=== PATIENT | female | born 1955 | race Caucasian/White ===

== ENCOUNTER → 2017-09-30 20:31 | Outpatient (CLI) | payer MEDICARE, MEDICAID, SELFPAY | PROVIDERS: PCP Family Medicine; Visit Provider Family Medicine | DX: R35.0 Frequency of micturition (principal); R39.15 Urgency of urination; N39.46 Mixed incontinence | CPT/HCPCS: 87086 ==

== ENCOUNTER → 2017-11-23 13:38 | Outpatient (CLI) | payer MEDICARE, MEDICAID, SELFPAY ==
--- NOTE | 2017-11-23 13:41 | US_ITS ---
US transvaginal HISTORY: Follow-up ovarian lesion ITS.REASON: LESION OF OVARY ORDERING PHYSICIAN: Jeison Mederos MD PATIENT AGE: 62 years COMPARISON: None FINDINGS: The uterus is 4.5 x 2 x 3.3 cm with a combined endometrial thickness of 5 mm. The left ovary is 3 x 1.5 cm with a few small follicles. The right ovary is 3 x 2.6 cm. No adnexal mass apparent... No cul-de-sac fluid evident. IMPRESSION: No acute finding. No adnexal mass or other acute anomalies.
== END ==
PROVIDERS: Family Provider Family Medicine; PCP Family Medicine; Visit Provider Family Medicine
DX: N83.9 Noninflammatory disorder of ovary, fallopian tube and broad ligament, unspecified (principal)
CPT/HCPCS: 76830

== ENCOUNTER → 2018-08-16 17:18 | Outpatient (CLI) | payer MEDICARE, MEDICAID, SELFPAY ==
--- NOTE | 2018-08-16 17:30 | XR_ITS ---
XR hip RT 2-3V w/pelvis HISTORY: Posttraumatic pain ITS.REASON: CONTUSION OF RIGHT THIGH ORDERING PHYSICIAN: Jeison Mederos MD PATIENT AGE: 62 years COMPARISON: None FINDINGS: No obvious fracture or dislocation. No lytic or blastic change. Mild amount of feces noted in the rectal region. Degenerative changes are present in the lower lumbar spine with facet arthritic change on the left at L4-5. IMPRESSION: No acute finding, no acute fracture of the right hip
== END ==
PROVIDERS: PCP Family Medicine; Visit Provider Family Medicine
DX: S70.11XA Contusion of right thigh, initial encounter (principal)
CPT/HCPCS: 73502

== ENCOUNTER → 2019-08-14 15:01 | Outpatient (CLI) | payer MEDICARE, MEDICAID, SELFPAY ==
--- NOTE | 2019-08-14 15:19 | XR_ITS ---
PROCEDURE: XR DEXA AXIAL SKELETON CLINICAL HISTORY: OSREOPOROSIS COMPARISON: No exams were available for comparison FINDINGS: L1-L4 density is 0.981 grams/centimeters sq with a T-score of -1.7. Mean density of the right hip is 0.695 grams/centimeters sq with a T-score of -2.5 consistent with osteoporosis. IMPRESSION: Osteoporosis. High fracture risk. Treatment advised. Suggest follow-up exam August 2020 Dictated by: Pepe Silva MD 08/14/2019 17:23 Electronically signed by Pepe Silva MD in [place] 08/14/2019 17:23
--- NOTE | 2019-08-14 15:20 | MM_ITS ---
PROCEDURE: MM DIG SCREENING MAMM BI W/CAD CLINICAL INDICATION: SCREENING There is a history of breast cancer patient's mother. COMPARISON: DMSB DIG MAMM-SCREEN SANDRA from 01/03/2015 BONE3 BONE DENSITOMETRY(HIP:LT SPINE from 04/20/2016 DMSB DIG MAMM-SCREEN SANDRA W/CAD from 05/20/2017 TECHNIQUE: Standard CC and MLO images were obtained. R2 CAD reviewed. FINDINGS: Scattered fibroglandular densities are seen throughout both breast on a background primarily fatty breast parenchyma. Findings of bilateral symmetrical. There is a mole marker near the nipple right breast. There is benign-appearing calcification left breast. And no suspicious microcalcifications. There is no suspicious lesion and no suspicious microcalcifications. IMPRESSION: Fibrofatty parenchyma with no suspicious lesions seen BI-RAD Category: 2 Benign Finding(s) FOLLOW-UP: 1YR 1 Year Follow-up (A letter has been sent to the patient regarding results of the study.) Dictated by: Dr. Scooby Willis MD 08/15/2019 14:[address] Scooby Willis MD in [place] 08/15/2019 14:21
== END ==
PROVIDERS: PCP Family Medicine; Visit Provider Nurse Practitioner Family
DX: Z12.31 Encounter for screening mammogram for malignant neoplasm of breast (principal); M81.0 Age-related osteoporosis without current pathological fracture
CPT/HCPCS: 77067; 77080

== ENCOUNTER → 2020-03-04 17:54 | Outpatient (CLI) | payer MEDICARE, MEDICAID, SELFPAY ==
--- NOTE | 2020-03-04 18:04 | XR_ITS ---
PROCEDURE: XR CERVICAL SPINE 5V CLINICAL INDICATION: NECK PAIN COMPARISON: No exams were available for comparison FINDINGS: There is straightening of the cervical lordosis. Degenerative disc disease is present at C5-C6 and C6-C7. There is mild foraminal narrowing at C3-C4 on the right in on the left at C2-C3. No fracture or dislocation. No lytic or blastic change. No evidence of cervical rib IMPRESSION: Cervical spondylosis as described above. Dictated by: Pepe Silva MD 03/04/2020 20:05 Electronically signed by Pepe Silva MD in [place] 03/04/2020 20:05
== END ==
PROVIDERS: PCP Family Medicine; Visit Provider Family Medicine
DX: M54.2 Cervicalgia (principal)
CPT/HCPCS: 72050

== ENCOUNTER 2020-09-02 14:17 | Emergency (ER) | payer MEDICARE, MEDICAID, SELFPAY ==
[2020-09-02 14:20] VITALS: BP 129/80; PULSE 90; RESP 20; TEMP 36.7; O2SAT 97; BMI 28.7
[2020-09-02 14:35] VITALS: BP 129/80; PULSE 90; RESP 20; TEMP 36.7; O2SAT 97
--- NOTE | 2020-09-02 14:35 | HMH.EDUTC ---
[facility] [place] Clinical Impression: Encounter for laboratory testing for COVID-19 virus Disposition: Home, Self-Care Condition on Discharge: Good Instructions: DI for COVID-19 (Suspected or Confirmed ), COVID-19 Viral Test, COVID-19: Testing and Tracing, Preventing the Spread of Coronavirus Discharge Instructions Additional Instructions: *Monitor Temp, Over the counter Motrin or Tylenol as directed/as needed Tylenol every 4 hours and Motrin every 6 hours (as long as your family doctor has told you that you can take it) for fever or pain. and straight to ER if unable to lower temp less than 101.0 after medication given *Warm salt water gargles may help to soothe the throat *Throat Lozenges *Warm fluids like tea with honey may help to soothe the throat *Sleep elevated *Humidifier/Vaporizer Follow up IMMEDIATELY for new or worsening symptoms or no Noticeable improvement over the next 48-72 hours. 911 for difficulty breathing or swallowing You were tested for today for COVID19 your test result should be back in the next 24-48 hours, you may call to the [facility] to see if your test results are back in the next 48 hours [phone] [facility] hours are 9am-9pm You was given a handout with instructions for Self Quarantine and Self isolation for while you wait on test results and what to do if they are positive If you are positive the Health Dept will be contacting you also Referrals: Jeison Mederos MD [Primary Care Provider] - As needed Time of Disposition: 14:36 Medical Decision Making - Morgan Inquiry Pt receiving controlled substance: No Morgan was queried for this patient: No Vital Signs: 09/02/20 14:20 09/02/20 14:35 Temperature 98.0 F 98.0 F Temperature Source Oral Pulse Rate 90 Pulse Rate [Right Brachial] 90 Respiratory Rate 20 20 Blood Pressure 129/80 Blood Pressure [Right Arm] 129/80 Blood Pressure Mean [Right Arm] 96 Blood Pressure Source [Right Arm] Automatic Cuff Blood Pressure Position [Right Arm] Sitting 02 Sat by Pulse Oximetry 97 Oxygen Delivery Method Room Air Orders (Tests/Meds): ORDERS Category Date Time Status Covid-19 Nasal PCR Sendout [facility] Stat Lab 09/02/20 14:25 Received [facility] [place] - General Stated complaint: wants covid test Time Seen by Provider: 09/02/20 14:35 Mode of Arrival: Ambulatory Source of Information: Patient Limitations: No Limitations Description of Symptoms (Recalled from Triage Doc. by RN): PATIENT REQUESTING COVID TEST D/T EXPOSURE; C/O BODY ACHES, HEADACHE, AND SORE THROAT HEENT Symptoms (Recalled from RN notes): No Resp Symptoms (Recalled from RN notes): No Skin Symptoms (Recalled from RN notes): No MS Symptoms (Recalled from RN notes): No Functional Status (Recalled from RN notes): WNL - History of Present Illness Provider Complaint: Patient requesting to be tested for COVID States that she has been having headache, body aches and scratchy throat but she recently got a new bed and thinks that may be causing her headache and body aches. - Related Data Home Medications Medication Instructions Recorded Confirmed cyclobenzaprine 5 mg tablet 5 mg PO DAILY 10 Days #30 tab 05/20/18 12/06/19 divalproex 125 mg tablet,delayed 250 mg PO BID 05/20/18 12/06/19 release donepezil 10 mg tablet 10 mg PO QHS 05/20/18 12/06/19 fexofenadine 60 mg tablet 60 mg PO BID 05/20/18 12/06/19 fluticasone propionate 50 1 spray INTRANASAL DAILY 05/20/18 12/06/19 mcg/actuation nasal spray,suspension tramadol 50 mg tablet 50 mg PO DAILY 30 Days #90 tab 05/20/18 12/06/19 triamterene 50 1 cap PO DAILY 05/20/18 12/06/19 mg-hydrochlorothiazide 25 mg capsule venlafaxine 37.5 mg 37.5 mg PO QHS 05/20/18 12/06/19 capsule,extended release 24 hr Previous Rx's Medication Instructions Recorded Azithromycin [Z-Liang 250mg Tab*] 250 mg PO UD DOSE PK #6 tab 12/06/19 Allergies Allergy/AdvReac Type Severity Reaction Status Date / Time Penicillins [PENICILLINS] Al
[2020-09-03 12:38] LABS: Covid-19 Nasal PCR Sendout P&C NEGATIVE
== END 2020-09-02 14:37 | disposition home or self-care (01) ==
PROVIDERS: Emergency Provider Nurse Practitioner; PCP Family Medicine
DX: Z20.828 Contact with and (suspected) exposure to other viral communicable diseases (principal); J02.9 Acute pharyngitis, unspecified; Z86.73 Personal history of transient ischemic attack (TIA), and cerebral infarction without residual deficits; Z88.0 Allergy status to penicillin
CPT/HCPCS: G0463; 99201; U0004

== ENCOUNTER → 2020-10-07 15:29 | Outpatient (CLI) | payer MEDICARE, MEDICAID, SELFPAY ==
--- NOTE | 2020-10-07 15:30 | MM_ITS ---
PROCEDURE: MM DIG SCREENING MAMM BI W/CAD Referring Doctor: Jeison Mederos Patient Age:64Y CLINICAL INDICATION: SCREENING 64-year-old. No hormones, no new complaints Family history: Mother and maternal aunt with breast cancer COMPARISON: MG DMSB DIGITAL MAMM-SCREEN BILATERAL from 12/15/2012 MG DMSB DIG MAMM-SCREEN SANDRA from 12/12/2013 MG DMSB DIG MAMM-SCREEN SANDRA from 01/03/2015 CR,MG BONE3 BONE DENSITOMETRY(HIP:LT SPINE from 04/20/2016 MG DMSB DIG MAMM-SCREEN SANDRA W/CAD from 05/20/2017 MG MM DIG SCREENING MAMM BI W/CAD from 08/14/2019 TECHNIQUE: Standard CC and MLO images were obtained. R2 CAD reviewed. Bilateral digital breast tomosynthesis included. FINDINGS: Minimal scattered fibroglandular elements. Overall lower density breast with moderate diffuse fatty replacement. Right breast-stable with no new areas of concern but follow-up 1 year Left breast- Area of slight increased density towards the lateral left breast seen on the cc standard views and to less degree tomosynthesis. However it is less evident and linear appearing on MLO view most likely reflecting a longstanding feature merely accentuated by overlapping shadows on today study. However would suggest spot cc and rolled spot CC views here along with spot MLO view to further evaluate. Ultrasound survey left breast with attention upper-outer quadrant also suggested IMPRESSION: Left breast-area increased density at the lateral left breast on CC views suspect most likely is overlapping shadows of however I would suggest spot views and ultrasound left breast to further evaluate to be cautious, (particularly in view of positive family history) Right breast. Stable no new areas of concern BI-RAD Category: 0 Need Additional Imaging Evaluation FOLLOW-UP: IMM Immediate Follow-up Recommended (A letter has been sent to the patient regarding results of the study.) Dictated by: Manuel Mosher MD 10/14/2020 08:46 Manuel Mosher MD in [place] 10/14/2020 08:46
== END ==
PROVIDERS: PCP Family Medicine; Visit Provider Family Medicine
DX: Z12.31 Encounter for screening mammogram for malignant neoplasm of breast (principal)
CPT/HCPCS: 77063; 77067

== ENCOUNTER → 2020-11-05 13:27 | Outpatient (CLI) | payer MEDICARE, MEDICAID, SELFPAY ==
--- NOTE | 2020-11-05 13:30 | MM_ITS ---
PROCEDURE: MM DIG MAMM DX UNILAT LT CAD Digital Breast Tomosynthesis Included CLINICAL INDICATION: ABN MAMM COMPARISON: MG DMSB DIG MAMM-SCREEN SANDRA W/CAD from 05/20/2017 MG MM DIG SCREENING MAMM BI W/CAD from 08/14/2019 MG MM DIG SCREENING MAMM BI W/CAD from 10/07/2020 US US BREAST LT COMPLETE from 11/05/2020 TECHNIQUE: Spot compression CC views and rolled CC views were obtained along with spot compression compression MLO view FINDINGS: The possible asymmetric lesion seen on previous mammogram appears to press out on the additional views with no suspicious findings seen. Ultrasound performed the same date showed no abnormality. IMPRESSION: Negative problem solving views and ultrasound exam BI-RAD Category: 1 Negative FOLLOW-UP: 1YR 1 Year Follow-up (A letter has been sent to the patient regarding results of the study.) Dictated by: Dr. Scooby Willis MD 11/12/2020 16:54 Dr. Scooby Willis MD in [place] 11/12/2020 16:54
--- NOTE | 2020-11-05 13:31 | US_ITS ---
PROCEDURE: US BREAST LT COMPLETE CLINICAL INDICATION: ABN MAMM COMPARISON: No exams were available for comparison FINDINGS: Ultrasound survey of the breast shows no abnormal cystic or solid lesion and there are no findings to suggest architectural distortion. There are couple normal appearing nodes in the axilla. IMPRESSION: Negative ultrasound left breast Dictated by: Dr. Scooby Willis MD 11/12/2020 16:55 Dr. Scooby Willis MD in [place] 11/12/2020 16:55
== END ==
PROVIDERS: PCP Family Medicine; Visit Provider Nurse Practitioner Family
DX: R92.8 Other abnormal and inconclusive findings on diagnostic imaging of breast (principal)
CPT/HCPCS: 76641; 77061; 77065; G0279

== ENCOUNTER → 2020-12-11 09:20 | Outpatient (CLI) | payer MEDICARE, MEDICAID, SELFPAY ==
--- NOTE | 2020-12-11 09:22 | XR_ITS ---
PROCEDURE: XR DEXA AXIAL SKELETON CLINICAL HISTORY: AGE-RELATED OSTEOPOROSIS W/O CURRENT PATHOLOGICAL FRACTURE COMPARISON: CR,DX BONE3 BONE DENSITOMETRY(HIP:LT SPINE from 05/24/2017 FINDINGS: The right hip BMD is 0.759 grams/square centimeter with a T-score of -1.5. The left hip BMD is 0.649 grams/cm2 with a T-score of -2.4. The lumbar spine BMD is 0.917 grams/centimeters square with a T-score of -1.2. IMPRESSION: This patient is considered osteopenic according to the World Health Organization criteria. Bone density is between 10 and 25 percent below young normal. Fracture risk is moderate. Treatment is advised. Based on these results a follow-up exam is recommended in 2 year. Dictated by: Lianne Lincoln 12/11/2020 11:53 Lianne Lincoln in [place] 12/11/2020 11:53
== END ==
PROVIDERS: PCP Family Medicine; Visit Provider Family Medicine
DX: M81.0 Age-related osteoporosis without current pathological fracture (principal)
CPT/HCPCS: 77080

== ENCOUNTER 2021-05-27 16:10 | Emergency (ER) | payer MEDICARE, MEDICAID, SELFPAY ==
[2021-05-27 16:50] VITALS: BP 145/70; PULSE 103; RESP 18; TEMP 36.7; O2SAT 100; BMI 29.0
--- NOTE | 2021-05-27 17:33 | HMH.EDUTC ---
[facility] [place] Disposition Clinical Impression: Diarrhea Qualifiers: Diarrhea type: unspecified type Qualified Code(s): R19.7 - Diarrhea, unspecified Disposition: Home, Self-Care Condition on Discharge: Good Instructions: Diarrhea Additional Instructions: Follow up with your primary care doctor tomorrow as planned. GO TO THE ER FOR ANY WORSENING SYMPTOMS OR CONCERNS Referrals: Jeison Mederos MD [Primary Care Provider] - Time of Disposition: 18:23 Medical Decision Making - Medical Records Medical records reviewed: No: I reviewed the patient's medical records. - Moragn Inquiry Pt receiving controlled substance: No Vital Signs: 05/27/21 16:50 05/27/21 18:25 Temperature 98.1 F 98.1 F Temperature Source Oral Pulse Rate 103 H Pulse Rate [Right Brachial] 103 H Respiratory Rate 18 18 Blood Pressure 145/70 H Blood Pressure [Right Arm] 145/70 H Blood Pressure Mean [Right Arm] 95 Blood Pressure Source [Right Arm] Automatic Cuff Blood Pressure Position [Right Arm] Sitting 02 Sat by Pulse Oximetry 100 Oxygen Delivery Method Room Air - Lab Data Lab Results 05/27/21 18:00: WBC 12.8 H, RBC 3.80 L, Hgb 11.1 L, Hct 33.9 L, MCV 89.2, MCH 29.2, MCHC 32.8, RDW 13.2, Plt Count 189, MPV 9.2, Neut % (Auto) 73.7, Lymph % (Auto) 20.6, [place] % (Auto) 2.9, Eos % (Auto) 2.1, Baso % (Auto) 0.8, Neut # (Auto) 9.4 H, Lymph # (Auto) 2.6, [place] # (Auto) 0.4, Eos # (Auto) 0.3, Baso # (Auto) 0.1 Result diagrams: 05/27/21 18:00 Orders (Tests/Meds): ORDERS Category Date Time Status Covid-19 Nasal PCR ([facility]) Routine Lab 05/27/21 16:55 Received Medical Decision Narrative: we were in the process of drawing blood and starting an iv to replace any fluids that she has lost. But she ended up refusing the IV and wanting to leave before her results are back. She is going to f/u with her pcp in the morning to go over the lab results and further treatment. [facility] [place] HPI - General Stated complaint: covid test,with V&D stools black Time Seen by Provider: 05/27/21 17:38 Mode of Arrival: Ambulatory Source of Information: Patient Limitations: No Limitations Description of Symptoms (Recalled from Triage Doc. by RN): PATIENT C/O VOMITING AND DIARRHEA THAT STARTED THIS MORNING, STATES IT IS BLACK IN COLOR. HAS APPOINTMENT WITH PCP TOMORROW AND ORDERS FOR OUTPATIENT LABS HEENT Symptoms (Recalled from RN notes): No Resp Symptoms (Recalled from RN notes): No Skin Symptoms (Recalled from RN notes): No MS Symptoms (Recalled from RN notes): No Functional Status (Recalled from RN notes): WNL - History of Present Illness Provider Complaint: She states that since yesterday she has had dark, almost black diarrhea and she has vomited dark vomitus also. She states that she doesn't feel good, but she denies any abdominal pain at this time. - Related Data Home Medications Medication Instructions Recorded Confirmed cyclobenzaprine 5 mg tablet 5 mg PO DAILY 10 Days #30 tab 05/20/18 12/06/19 divalproex 125 mg tablet,delayed 250 mg PO BID 05/20/18 12/06/19 release donepezil 10 mg tablet 10 mg PO QHS 05/20/18 12/06/19 fexofenadine 60 mg tablet 60 mg PO BID 05/20/18 12/06/19 fluticasone propionate 50 1 spray INTRANASAL DAILY 05/20/18 12/06/19 mcg/actuation nasal spray,suspension tramadol 50 mg tablet 50 mg PO DAILY 30 Days #90 tab 05/20/18 12/06/19 triamterene 50 1 cap PO DAILY 05/20/18 12/06/19 mg-hydrochlorothiazide 25 mg capsule venlafaxine 37.5 mg 37.5 mg PO QHS 05/20/18 12/06/19 capsule,extended release 24 hr Previous Rx's Medication Instructions Recorded Azithromycin [Z-Liang 250mg Tab*] 250 mg PO UD DOSE PK #6 tab 12/06/19 Allergies Allergy/AdvReac Type Severity Reaction Status Date / Time Penicillins [PENICILLINS] Allergy Unknown Verified 12/06/19 17:10 - Worker's Comp Is this a Worker's Comp case?: No [facility] History - Hepatitis A Screen Drug use history?: No High risk sexual behaviors?
[2021-05-27 18:24] LABS: Basophils # 0.1 K/mm3 (0-0.2); Basophils % 0.8 % (0.1-2.0); Eosinophils # 0.3 K/mm3 (0.0-0.4); Eosinophils % 2.1 % (0.1-12.0); Hematocrit 33.9 % (37.0-47.0); Hemoglobin 11.1 g/dL (12.2-16.2); Lymphocytes # 2.6 K/mm3 (0.7-4.5); Lymphocytes % 20.6 % (10-50); Mean Corpuscular HGB Conc 32.8 g/dL (31.8-35.4); Mean Corpuscular Hemoglobin 29.2 pg (27.0-31.2); Mean Corpuscular Volume 89.2 fl (81-99); Mean Platelet Volume 9.2 fl (7.4-10.4); Monocytes # 0.4 K/mm3 (0.1-1.0); Monocytes % 2.9 % (1.7-9.3); Neutrophils # 9.4 K/mm3 (1.8-7.8); Neutrophils % 73.7 % (37.0-80.0); Platelet Count 189 K/mm3 (142-424); Red Cell Distribution Width 13.2 % (11.5-17.5); White Blood Count 12.8 K/mm3 (4.8-10.8)
[2021-05-27 18:25] VITALS: BP 145/70; PULSE 103; RESP 18; TEMP 36.7; O2SAT 100
== END 2021-05-27 18:30 | disposition home or self-care (01) ==
PROVIDERS: Emergency Provider Nurse Practitioner Family; PCP Family Medicine
DX: R11.10 Vomiting, unspecified (principal); R19.7 Diarrhea, unspecified; G40.909 Epilepsy, unspecified, not intractable, without status epilepticus; Z86.73 Personal history of transient ischemic attack (TIA), and cerebral infarction without residual deficits; Z88.0 Allergy status to penicillin
CPT/HCPCS: G0463; 85025; 99203; C9803; U0003; U0005

== ENCOUNTER → 2021-06-10 16:31 | Outpatient (CLI) | payer MEDICARE, MEDICAID, SELFPAY | PROVIDERS: Visit Provider Surgery | DX: Z01.812 Encounter for preprocedural laboratory examination (principal); Z20.822 Contact with and (suspected) exposure to COVID-19; Z13.810 Encounter for screening for upper gastrointestinal disorder | CPT/HCPCS: C9803; U0003; U0005 ==

== ENCOUNTER 2021-06-11 06:29 | Day surgery (SDC) | payer MEDICARE, MEDICAID, SELFPAY ==
[2021-06-10 11:46] VITALS: BMI 27.4
[2021-06-11 06:43] VITALS: BP 148/69; PULSE 92; RESP 18; TEMP 36.9; O2SAT 98
--- NOTE | 2021-06-11 06:58 | HMH.ANESCL ---
[facility] Anesthesia Checklist - Patient Identification Patient Identification: Arm Band, Verbal (Name & ) - Structural Data Admitted From: Home Planned Operative Procedure/s: egd Consent for Planned Operative Procedure(s) Verified: Yes Verified Documents: History and Physical - NPO Status Verified Time NPO: 00:00 - Additional verifications Patient : No Anesthesia Reactions: No Hx Blood Transfusions: No Blood Transfusion Reaction: No Cephalosporin Allergy: No Previous Colonoscopy: Yes - Cardiovascular Assessment Heart Sounds: S1 & S2 Pulse Strength: Baseline Pulse Rhythm: Regular Peripheral Edema: No - Airway Assessment C-Spine Mobility Assessed: Yes TMJ Mobility Assessed: Yes Dentition: Good Dentition - Neurological Assessment Level of Consciousness: Awake, Alert, Appropriate Hx Seizures: No Numbness or tingling in extremities: No - Anesthesia Plan Anesthesia Risk discussed: Yes Anesthesia Plan: Verified ASA Class: III Anesthesia Type: MAC [facility] History I have reviewed the patient's past medical history: Yes Medical History: Reports:: Cerebrovascular Accident, Dementia, Hyperlipidemia, Hypertension Denies:: Cancer, Diabetes Mellitus Type 1, Diabetes Mellitus Type 2, Internal Pacemaker, MRSA, Seizures *Have you ever received a pneumonia vaccine?: No *Have you received a flu vaccine this season?: No Anesthesia experience/problems:: none Other Surgeries: Yes: No Previous Surgery. No: Pacemaker Amputation: No Fractures: No - *Social History Last grade of school completed: High school graduate Smoking Status: Never smoker Alcohol Intake: never Substance Use Type: denies use *Occupational Status:: retired Housing: house *Travel in the last 8 weeks: None Family Hx:: Cancer
[2021-06-11 07:16] VITALS: O2SAT 98
--- NOTE | 2021-06-11 07:36 | HMH.SCOPE ---
- Procedure: Date: 06/11/21 Patient Date of :: 1955 Procedure Performed:: Esophagogastroduodenoscopy with biopsy Indications:: Patient is a 65-year-old female who is referred by Dr. Fahad Mederos for upper endoscopy. She states that on 05/26/2021 she developed symptoms of hematemesis characterized as vomiting of black liquid. She also had findings of melena with passage of black stool. She was able to be managed without intervention. Some of her medications have been altered subsequently. Naprosyn has been discontinued. She has been started on iron. Performing Provider:: Sameer Raza MD Referring Provider:: Fahad Mederos MD Sedation:: MAC sedation Procedure:: Patient was taken to endoscopy procedure room. She was positioned in lateral decubitus position. Adequate intravenous sedation was achieved with anesthesia titration of propofol. Olympus endoscope was inserted via the oropharynx. Esophagus was cannulated the endoscope was advanced. Gastroesophageal junction was encountered at approximately 40 cm from the incisors. Stomach was cannulated and insufflated. Retroflexion revealed no evidence of any definite sliding hernia. However, upon retroflexion the pylorus and gastroesophageal junction were able to be visualized simultaneously. There was some mild nonerosive patchy gastritis. Advancement through the pylorus was difficult due to the gastric anatomy. Ultimately endoscope was ably advanced through the pylorus and duodenum appeared unremarkable. Endoscope was withdrawn into the gastric lumen. Gastric antral mucosal biopsy was obtained for CLOtest for H. pylori. Couple of biopsies were obtained within the gastric lumen to assess for gastritis. Stomach was desufflated and the endoscope was withdrawn. Findings:: Mild nonerosive gastritis Gastroesophageal junction at 40 cm from the incisors Findings possibly consistent with paraesophageal hernia Recommendations:: Follow-up on histopathology. I will obtain an upper GI series as she has findings endoscopically possibly suggestive of a paraesophageal hernia with potential intermittent gastric volvulus Complications:: None Estimated blood obtained (mL): 2
[2021-06-11 07:38] VITALS: BP 111/65; PULSE 77; RESP 16; TEMP 36.5; O2SAT 91
[2021-06-11 07:53] VITALS: BP 120/61; PULSE 76; RESP 16; TEMP 36.5; O2SAT 96
[2021-06-11 08:18] VITALS: BP 125/62; PULSE 77; RESP 16; TEMP 36.6; O2SAT 96
== END 2021-06-11 08:25 | disposition home or self-care (01) ==
LOC: OUTP 06:32
PROVIDERS: PCP Family Medicine; Visit Provider Surgery
PROC: 0DJ08ZZ Inspection of Upper Intestinal Tract, Via Natural or Artificial Opening Endoscopic (ICD-10-PCS; CPT 43235; principal; 2021-06-11 07:30)
DX: K29.70 Gastritis, unspecified, without bleeding (principal); K44.9 Diaphragmatic hernia without obstruction or gangrene; E78.5 Hyperlipidemia, unspecified; I10 Essential (primary) hypertension; F03.90 Unspecified dementia, unspecified severity, without behavioral disturbance, psychotic disturbance, mood disturbance, and anxiety; Z86.73 Personal history of transient ischemic attack (TIA), and cerebral infarction without residual deficits; Z80.9 Family history of malignant neoplasm, unspecified; Z88.0 Allergy status to penicillin; Z91.040 Latex allergy status; Z79.899 Other long term (current) drug therapy
CPT/HCPCS: 43239; 87339; 88305; J2405

== ENCOUNTER → 2021-06-13 10:51 | Outpatient (CLI) | payer MEDICARE, MEDICAID, SELFPAY ==
--- NOTE | 2021-06-13 10:55 | FL_ITS ---
PROCEDURE: FL UPPER GI SERIES W/O AIR CLINICAL INDICATION: dysphagia COMPARISON: No exams were available for comparison TECHNIQUE: FLUOROSCOPY TIME : 2 minutes and 30 seconds FINDINGS: There is elevation of the left hemidiaphragm.. The gastric body and fundus is located in this region. No ulcer, mass, or mucosal abnormalities are apparent. The duodenal bulb has an unremarkable appearance. The esophagus is unremarkable. No hernia or ulcer apparent. IMPRESSION: No acute finding. No ulcer or mass. Left hemidiaphragm is elevated with some rotation of the stomach containing the gastric fundus body in part of the antrum. Dictated by: Pepe Silva MD 06/16/2021 11:50 Pepe Silva MD in [place] 06/16/2021 11:50
== END ==
PROVIDERS: PCP Family Medicine; Visit Provider Surgery
DX: R13.10 Dysphagia, unspecified (principal)
CPT/HCPCS: 74240

== ENCOUNTER 2021-07-07 13:29 | Outpatient (CLI) | payer MEDICARE, MEDICAID, SELFPAY ==
[2021-07-07 13:49] VITALS: BP 125/63; PULSE 85; RESP 18; TEMP 36.5; O2SAT 98
[2021-07-07 14:15] VITALS: BP 125/69; PULSE 82; RESP 16; TEMP 36.5; O2SAT 98
== END 2021-07-07 14:15 | disposition home or self-care (01) ==
LOC: INF 13:30
PROVIDERS: PCP Family Medicine; Visit Provider Nurse Practitioner Family
DX: M85.89 Other specified disorders of bone density and structure, multiple sites (principal)
CPT/HCPCS: 96372; J0897

== ENCOUNTER → 2021-09-01 11:52 | Outpatient (CLI) | payer MEDICARE, MEDICAID, SELFPAY | PROVIDERS: Visit Provider Surgery | DX: Z01.812 Encounter for preprocedural laboratory examination (principal); Z11.52 Encounter for screening for COVID-19; Z12.11 Encounter for screening for malignant neoplasm of colon | CPT/HCPCS: C9803; U0003; U0005 ==

== ENCOUNTER 2021-09-03 09:16 | Day surgery (SDC) | payer MEDICARE, MEDICAID, SELFPAY ==
[2021-09-03 09:39] VITALS: BP 127/69; PULSE 85; RESP 18; TEMP 36.4; O2SAT 98; BMI 27.4
[2021-09-03 10:29] VITALS: O2SAT 98
--- NOTE | 2021-09-03 11:13 | HMH.SCOPE ---
- Procedure: Date: 09/03/21 Patient Date of :: 1955 Procedure Performed:: Total colonoscopy Indications:: Patient presents for colonoscopy. This was done due to the indications of black melena and possible hematemesis. She had an episode that lasted 1 evening. She is on Carafate and omeprazole. Upper endoscopy performed on 06/11/2021 revealed moderate gastritis and biopsy proven reactive gastropathy. She did seem to have rather unusual orientation of the stomach endoscopically and I therefore had her undergo upper GI series to evaluate for possible paraesophageal hernia and intermittent gastric volvulus. Upper GI series revealed Left hemidiaphragm is elevated with some rotation of the stomach containing the gastric fundus body in part of the antrum. There was no evidence of any paraesophageal hernia or volvulus. Patient has never had prior similar history and has been doing well subsequently. She does ask about possible colonoscopy. She states that she was being set up for Cologuard testing through her primary care physician's office but has not received the packet. Plan was made to proceed with colonoscopy. Of note, the patient is on ferrous sulfate. Performing Provider:: Sameer Raza MD Referring Provider:: Fahad Mederos MD Sedation:: MAC sedation Procedure:: Consent was obtained and patient was taken to endoscopy procedure room. She was positioned in lateral decubitus position. Adequate intravenous sedation was achieved with anesthesia titration of propofol. Variable stiffness Olympus colonoscope was inserted via the anus. It was advanced to the cecum with some minor difficulty due to atonic floppy redundant colon. Colonic preparation was poor as there was dark black particulate stool throughout the colon. The ileocecal valve and appendiceal orifice were identified. Thorough irrigation and suctioning was performed as much this could be done. The colonoscope was slowly withdrawn through the colon with careful surveillance. However, visualization was suboptimal due to the black particulate liquid stool. Due to the nature of the stool some of this was suctioned into a trap and sent for Hemoccult. Colonoscope was withdrawn to the rectum and retroflexion revealed no evidence of any pathologic internal hemorrhoids. Colonoscope was withdrawn. Findings:: Poor preparation with dark black liquid particulate stool throughout the colon. Specimen sent for Hemoccult (patient is on ferrous sulfate). Recommendations:: Would advocate repeat colonoscopy within 1 year with more aggressive bowel preparation and holding iron sulfate Complications:: None immediately apparent Estimated blood obtained (mL): 0
[2021-09-03 11:14] VITALS: BP 112/71; PULSE 78; RESP 16; TEMP 36.5; O2SAT 98
[2021-09-03 11:39] VITALS: BP 119/74; PULSE 71; RESP 18; TEMP 36.5; O2SAT 99
[2021-09-03 11:40] LABS: Occult Blood,Stool Negative (Negative)
--- NOTE | 2021-09-03 11:52 | HMH.ANESCL ---
[facility] Anesthesia Checklist - Patient Identification Patient Identification: Arm Band, Verbal (Name & ) - Structural Data Admitted From: Home Planned Operative Procedure/s: Colonoscopy Consent for Planned Operative Procedure(s) Verified: Yes Verified Documents: Surgical Consent - NPO Status Verified Time NPO: 00:00 - Additional verifications Anesthesia Reactions: No Hx Blood Transfusions: No Blood Transfusion Reaction: No - Cardiovascular Assessment Heart Sounds: S1 & S2 - Airway Assessment C-Spine Mobility Assessed: Yes TMJ Mobility Assessed: Yes Dentition: Good Dentition - Neurological Assessment Level of Consciousness: Awake, Alert, Appropriate - Anesthesia Plan Anesthesia Risk discussed: Yes ASA Class: III Anesthesia Type: General [facility] History I have reviewed the patient's past medical history: Yes Medical History: Reports:: Aneurysm, Cerebrovascular Accident, Dementia, Hyperlipidemia, Hypertension Denies:: Cancer, Diabetes Mellitus Type 1, Diabetes Mellitus Type 2, Internal Pacemaker, MRSA, Seizures *Have you ever received a pneumonia vaccine?: No *Have you received a flu vaccine this season?: No Other Medical History: Denies: Blood Transfusion Reaction Anesthesia experience/problems:: none Other Surgeries: Yes: No Previous Surgery, Colonoscopy, EGD, Other (hemorrhoidectomy). No: Pacemaker Amputation: No Fractures: No - *Social History Last grade of school completed: Advanced degree Smoking Status: Former smoker Alcohol Intake: never Substance Use Type: denies use *Occupational Status:: retired Housing: house Household Members: none *Travel in the last 8 weeks: None Family Hx:: Cancer
[2021-09-03 12:05] VITALS: BP 116/74; PULSE 75; RESP 18; TEMP 36.6; O2SAT 97
== END 2021-09-03 12:07 | disposition home or self-care (01) ==
LOC: OUTP 09:17
PROVIDERS: PCP Family Medicine; Visit Provider Surgery
PROC: 0DJD8ZZ Inspection of Lower Intestinal Tract, Via Natural or Artificial Opening Endoscopic (ICD-10-PCS; principal; 2021-09-03 09:30)
DX: Z87.19 Personal history of other diseases of the digestive system (principal); R19.5 Other fecal abnormalities; I10 Essential (primary) hypertension; K21.9 Gastro-esophageal reflux disease without esophagitis; Z88.0 Allergy status to penicillin; Z91.040 Latex allergy status
CPT/HCPCS: 44388; 82272; G0328; J2405; J2704

== ENCOUNTER → 2021-11-06 12:59 | Outpatient (CLI) | payer MEDICARE, MEDICAID, SELFPAY ==
--- NOTE | 2021-11-06 13:05 | MM_ITS ---
PROCEDURE INFORMATION: Exam: MG Bilateral Screening 3D Mammography Exam date and time: 11/06/2021 1:05 PM Age: 65 years old Clinical indication: Encounter for screening mammogram for malignant neoplasm of breast TECHNIQUE: Imaging protocol: Bilateral Screening tomosynthesis and 2D mammography including computer-aided detection (CAD) when performed. COMPARISON: 1. MG MM DIG MAMM DX UNILAT LT CAD 11/05/2020 1:34 PM 2. MG MM DIG SCREENING MAMM BI W/CAD 10/07/2020 3:31 PM FINDINGS: MAMMOGRAPHY: Breast composition: The breasts are almost entirely fatty. Mass: None. Architectural distortion: None. Calcifications: No suspicious calcifications. Asymmetric density: None. Skin thickening: None. Axillary adenopathy: None. IMPRESSION: No mammographic evidence of malignancy. Annual screening is recommended unless otherwise clinically indicated. ASSESSMENT: BI-RADS Category 1: Negative
== END ==
PROVIDERS: PCP Family Medicine; Visit Provider Family Medicine
DX: Z12.31 Encounter for screening mammogram for malignant neoplasm of breast (principal)
CPT/HCPCS: 77063; 77067

== ENCOUNTER 2022-07-22 15:54 | Emergency (ER) | payer MEDICARE, MEDICAID, SELFPAY ==
--- NOTE | 2022-07-22 17:16 | EXP.UTC ---
Discharge Plan Disposition Patient Disposition: Home, Self-Care Condition: Good Prescriptions Prescriptions: New azithromycin [Zithromax] 250 mg tablet 250 mg PO UD DOSE PK Qty: 6 0RF Rx Instructions: Take two (2) tablets today, then one (1) tablet days #2 thru #5 benzonatate [benzonatate] 100 mg capsule 100 mg PO TIDP PRN (Reason: Cough) Qty: 30 0RF methylprednisolone 4 mg Tablets,Dose Pack 4 mg PO DIRECTED Qty: 21 0RF No Action omeprazole 20 mg capsule,delayed release(DR/EC) 20 mg PO BID potassium chloride 10 mEq tablet,ER particles/crystals 10 meq PO BID donepezil 10 MG tablet 10 mg PO HS triamterene-hydrochlorothiazid 1 EACH tablet 1 each PO DAILY lisinopril 5 MG tablet 5 mg PO DAILY ferrous sulfate 325 MG tablet 325 mg PO BID venlafaxine 150 MG tablet extended release 24hr 150 mg PO DAILY divalproex 500 MG tablet,delayed release (DR/EC) 500 mg PO DAILY Referrals Follow up/Referrals: Jeison Mederos MD [Primary Care Provider] - See instructions Activity Restrictions/Add. Instructions Additional Instructions/Restrictions: Drink plenty of fluids. Take tylenol or ibuprofen for pain or fever. Take the medications as directed. Follow up with your regular doctor. GO TO THE ER FOR ANY WORSENING SYMPTOMS Clinical Impressions Clinical Impression: Sinusitis, RSV exposure Instructions Patient Instructions: Sinusitis, DI for Sinusitis [place]charge ED [place] [facility] [place] Stated complaint: Congestion, Cough, Covid test, RSV test Time Seen by Provider: 07/22/22 17:16 History of Present Illness Provider Complaint: She states that for the past 4 days she has had sinus congestion and sinus drainage. She came in today because she has to go to a wedding and she wants to make sure she his not contagious. She denies fever, chills and body aches. Related Data Home Medications Medication Instructions Recorded Confirmed omeprazole 20 mg capsule,delayed 20 mg PO BID Reflux/Acid reflux 06/06/21 09/22/21 release potassium chloride 10 mEq 10 meq PO BID Supplement 06/06/21 09/22/21 tablet,extended release(part/cryst) donepezil 10 mg tablet 10 mg PO HS memory 06/10/21 09/22/21 divalproex 500 mg tablet,delayed 500 mg PO DAILY seizures 07/07/21 09/22/21 release ferrous sulfate 325 mg (65 mg 325 mg PO BID Supplement 07/07/21 09/22/21 iron) tablet lisinopril 5 mg tablet 5 mg PO DAILY High blood pressure 07/07/21 09/22/21 triamterene 37.5 1 each PO DAILY High blood pressure 07/07/21 09/22/21 mg-hydrochlorothiazide 25 mg tablet venlafaxine 150 mg tablet,extended 150 mg PO DAILY mood 07/07/21 09/22/21 release 24 hr Previous Rx's Medication Instructions Recorded azithromycin 250 mg tablet 250 mg PO UD DOSE PK #6 tabs 07/22/22 (Zithromax) benzonatate 100 mg capsule 100 mg PO TIDP PRN Cough #30 caps 07/22/22 methylprednisolone 4 mg tablets in 4 mg PO DIRECTED #21 tabs 07/22/22 a dose pack Allergies Allergy/AdvReac Type Severity Reaction Status Date / Time latex Allergy Unknown Verified 07/22/22 17:25 Penicillins [PENICILLINS] Allergy Unknown Verified 07/22/22 17:25 [facility] Social History Smoking Status: Former smoker second hand exposure: No alcohol intake: never substance use type: denies use current occupational status: retired Travel in the last 8 weeks: None household members: none housing: house current occupational exposures/hazards: No caffeine: Yes ROS Obtained: Yes All systems reviewed & no additional complaints except as documented Constitutional Constitutional: Denies chills and Denies fever(s) Eyes Eyes: Denies eye discharge ENT Ears, Nose, Mouth, and Throat: Denies dizziness, Denies otalgia and Denies sore throat Cardiovascular Cardiovascular: Denies chest pain Respiratory Respira
[2022-07-22 17:17] VITALS: BP 123/77; PULSE 102; RESP 18; TEMP 37.1; O2SAT 95; BMI 30.7
[2022-07-22 17:31] LABS: Adenovirus,PCR Not Detected (NotDetected); Bordetella Pertussis Not Detected (NotDetected); Chlamydophila Pneumoniae, PCR Not Detected (NotDetected); Coronavirus 19, PCR Not Detected (NotDetected); Coronavirus 229E Not Detected (NotDetected); Coronavirus NL63 Not Detected (NotDetected); Coronavirus OC43 Not Detected (NotDetected); Coronovirus HKU1,PCR Not Detected (NotDetected); Human Metapneumovirus Not Detected (NotDetected); Influenza A, PCR Not Detected (NotDetected); Influenza AH1, 2009 Not Detected (NotDetected); Influenza AH1, PCR Not Detected (NotDetected); Influenza AH3,PCR Not Detected (NotDetected); Influenza B, PCR Not Detected (NotDetected); Mycoplasma Pneumoniae, PCR Not Detected (NotDetected); Parainfluenza 1, PCR Not Detected (NotDetected); Parainfluenza 2, PCR Not Detected (NotDetected); Parainfluenza 3, PCR Not Detected (NotDetected); Parainfluenza 4, PCR Not Detected (NotDetected); Respiratory Syncytial Virus Not Detected (NotDetected); Rhinovirus/Enterovirus Not Detected (NotDetected)
[2022-07-22 18:05] VITALS: BP 123/77; PULSE 102; RESP 18; TEMP 37.1
== END 2022-07-22 18:15 | disposition home or self-care (01) ==
PROVIDERS: Emergency Provider Nurse Practitioner Family; PCP Family Medicine
DX: J32.9 Chronic sinusitis, unspecified (principal)
CPT/HCPCS: 87581; 87632; 87798; 99212; C9803; G0463; U0003; U0005

== ENCOUNTER 2023-03-06 16:16 | Emergency (ER) | payer MEDICARE, MEDICAID, SELFPAY ==
[2023-03-06 16:47] VITALS: BP 136/86; PULSE 84; RESP 18; TEMP 36.6; O2SAT 99; BMI 31.3
[2023-03-06 16:51] LABS: Apearance,Urine Clear (Clear); Color,Urine Yellow (Yellow); Glucose,Urine (UA) Negative (Negative); Ketones,Urine Negative (Negative); Protein,Urine Negative (Negative); Specific Gravity, Urine 1.025 (1.005-1.030)
[2023-03-06 16:52] LABS: Bilirubin,Urine Negative (Negative); Blood, Urine Trace (Negative); UTC Leukocyte Esterase,Urine Negative (Negative); UTC Nitrate,Urine Negative (Negative); Urobilinogen,Urine 0.2 EU/dl (0.2)
--- NOTE | 2023-03-06 17:04 | EXP.UTC ---
Discharge Plan Disposition Patient Disposition: Home, Self-Care Condition: Good Prescriptions Prescriptions: New cephalexin [cephalexin] 500 mg tablet 500 mg PO BID 7 Days Qty: 14 0RF No Action omeprazole 20 mg capsule,delayed release(DR/EC) 20 mg PO BID donepezil 10 MG tablet 10 mg PO HS triamterene-hydrochlorothiazid 1 EACH tablet 1 each PO DAILY lisinopril 5 MG tablet 5 mg PO DAILY venlafaxine 150 MG tablet extended release 24hr 150 mg PO DAILY divalproex [Depakote] 500 MG tablet,delayed release (DR/EC) 500 mg PO DAILY Referrals Follow up/Referrals: Jeison Mederos MD [Primary Care Provider] - See instructions Activity Restrictions/Add. Instructions Additional Instructions/Restrictions: Increase fluids, water and not soda or tea. Can drink cranberry juice or cranberry extract. Wipe front to back Wear cotton underwear Empty bladder after intercourse Start antibiotics immediately and make sure you take the full course although you may start to see improvement over the next 48 hours. You can eat yogurt or take probiotics to decrease diarrhea or yeast infection caused by the antibiotic Be sure to follow-up anytime for new or worsening symptoms in 48 hours for wound urine culture results be sure to let you PCP no recent urine for culture so they can request records and ensure that you have appropriate antibiotic if you are not getting better or getting worse. If symptoms worsen or do not improve return or be seen in the ER. Follow-up with primary care this week. Clinical Impressions Clinical Impression: Acute UTI Instructions Patient Instructions: DI for Urinary Tract Infection (UTI) Discharge ED Provider: Edna ([facility])Ritchie [facility] [place] [facility] [place] General Stated complaint: frequent urination Source of Information: Patient Time Seen by Provider: 03/06/23 17:05 Description of Symptoms (Recalled from Triage Doc. by RN): Pt c/o of frequent urination along with a strong smelling urine that started yesterday. HEENT Symptoms (Recalled from RN notes): No Resp Symptoms (Recalled from RN notes): No Skin Symptoms (Recalled from RN notes): No MS Symptoms (Recalled from RN notes): No Functional Status (Recalled from RN notes): wnl History of Present Illness Provider Complaint: 67 yr old female presents for c/o of frequent urination, hesitancy, urgency along with a strong smelling urine that started yesterday. Related Data Home Medications Medication Instructions Recorded Confirmed omeprazole 20 mg capsule,delayed 20 mg PO BID Reflux/Acid reflux 06/06/21 03/06/23 release donepezil 10 mg tablet 10 mg PO HS memory 06/10/21 03/06/23 divalproex 500 mg tablet,delayed 500 mg PO DAILY seizures 07/07/21 03/06/23 release (Depakote) lisinopril 5 mg tablet 5 mg PO DAILY High blood pressure 07/07/21 03/06/23 triamterene 37.5 1 each PO DAILY High blood pressure 07/07/21 03/06/23 mg-hydrochlorothiazide 25 mg tablet venlafaxine 150 mg tablet,extended 150 mg PO DAILY mood 07/07/21 03/06/23 release 24 hr Previous Rx's Medication Instructions Recorded cephalexin 500 mg tablet 500 mg PO BID 7 days #14 tabs 03/06/23 Allergies Allergy/AdvReac Type Severity Reaction Status Date / Time latex Allergy Unknown Verified 03/06/23 16:54 Penicillins [PENICILLINS] Allergy Unknown Verified 03/06/23 16:54 Worker's Comp Is this a Worker's Comp case?: No [facility] Disclaimer: The information contained in this section may have been updated after the patient was seen, as this information can be updated by other users. 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
[2023-03-06 17:37] VITALS: BP 136/86; PULSE 84; RESP 18; TEMP 36.6; O2SAT 98
== END 2023-03-06 17:36 | disposition home or self-care (01) ==
PROVIDERS: Emergency Provider Nurse Practitioner Family; PCP Family Medicine
DX: N39.0 Urinary tract infection, site not specified (principal); B96.89 Other specified bacterial agents as the cause of diseases classified elsewhere
CPT/HCPCS: 81003; 87086; 87088; 87186; 99212; 99214; G0463

== ENCOUNTER → 2023-07-15 15:59 | Outpatient (CLI) | payer MEDICARE, MEDICAID, SELFPAY ==
--- NOTE | 2023-07-15 16:05 | MM_ITS ---
PROCEDURE INFORMATION: Exam: MG Bilateral Screening 3D Mammography Exam date and time: 07/15/2023 3:52 PM Age: 67 years old Clinical indication: Screening examination. Her mother had breast cancer at age 50 and a maternal aunt had breast cancer. TECHNIQUE: Imaging protocol: Bilateral Screening tomosynthesis and 2D mammography including computer-aided detection (CAD) when performed. COMPARISON: 1. MG MM DIG SCREENING MAMM BI W/CAD 11/06/2021 1:02 PM 2. MG MM DIG MAMM DX UNILAT LT CAD 11/05/2020 1:34 PM 3. MG MM DIG SCREENING MAMM BI W/CAD 10/07/2020 3:31 PM 4. MG MM DIG SCREENING MAMM BI W/CAD 08/14/2019 3:28 PM FINDINGS: MAMMOGRAPHY: Breast composition: The breasts are almost entirely fatty. Mass: None. Architectural distortion: None. Calcifications: No suspicious calcifications. Asymmetric density: None. Skin thickening: None. Axillary adenopathy: None. IMPRESSION: No mammographic evidence of malignancy. Annual screening is recommended unless otherwise clinically indicated. ASSESSMENT: BI-RADS Category 1: Negative
== END ==
PROVIDERS: PCP Family Medicine; Visit Provider Nurse Practitioner Family
DX: Z12.31 Encounter for screening mammogram for malignant neoplasm of breast (principal)
CPT/HCPCS: 77063; 77067

== ENCOUNTER 2023-10-18 12:26 | Outpatient (CLI) | payer MEDICARE, MEDICAID, SELFPAY ==
[2023-10-18 12:57] LABS: Blood Urea Nitrogen 20 mg/dl (7-17); Estimated Glomerular Filt Rate 83 ml/min (>60); GFR (African American) 101 ML/MIN (>60)
== END 2023-10-18 23:59 ==
LOC: LAB 12:27
PROVIDERS: PCP Family Medicine; Visit Provider Urology
DX: N39.41 Urge incontinence (principal); R79.89 Other specified abnormal findings of blood chemistry
CPT/HCPCS: 36415; 82565; 84520

== ENCOUNTER 2023-12-24 16:21 | Emergency (ER) | payer MEDICARE, MEDICAID, SELFPAY ==
[2023-12-24 16:35] VITALS: BP 155/74; PULSE 97; RESP 19; TEMP 36.4; O2SAT 97; BMI 32.3
--- NOTE | 2023-12-24 16:58 | EXP.UTC ---
Discharge Plan Disposition Patient Disposition: Home, Self-Care Condition: Good Prescriptions Prescriptions: New fluticasone propionate [Flonase Allergy Relief] 50 mcg/actuation spray,suspension 1 - 2 spray intranasal DAILY Qty: 16 0RF Rx Instructions: administer into each nostril azithromycin [Zithromax Z-Liang] 250 mg tablet See Rx Instructions .ROUTE .COMPLEX 5 Days Qty: 6 0RF Rx Instructions: For 250 mg dose pack: take 500 mg today (day 1), then 250 mg for 4 days (days 2-5) methylprednisolone [Medrol (Liang)] 4 mg tablets,dose pack See Rx Instructions .Route .COMPLEX 6 Days Qty: 21 0RF Rx Instructions: taper pack; benzonatate 100 mg capsule 100 mg PO TID PRN (Reason: cough) Qty: 30 0RF No Action oxybutynin chloride 10 mg tablet extended release 24hr 10 mg PO DAILY donepezil 10 mg tablet 10 mg PO DAILY venlafaxine 150 mg capsule,extended release 24hr 150 mg PO DAILY divalproex 500 mg tablet,delayed release (DR/EC) 500 mg PO DAILY omeprazole 20 mg capsule,delayed release(DR/EC) 20 mg PO DAILY montelukast 10 mg tablet 10 mg PO DAILY lisinopril 5 mg tablet 5 mg PO DAILY bupropion HCl 150 mg tablet extended release 24 hr 150 mg PO DAILY Referrals Follow up/Referrals: Jeison Mederos MD [Primary Care Provider] - See instructions Activity Restrictions/Add. Instructions Additional Instructions/Restrictions: *Monitor Temp, Over the counter Motrin or Tylenol as directed/as needed Tylenol every 4 hours and Motrin every 6 hours (as long as your family doctor has told you that you can take it) for fever or pain. and straight to ER if unable to lower temp less than 101.0 after medication given *Warm salt water gargles may help to soothe the throat *Throat Lozenges? *Warm fluids like tea with honey may help to soothe the throat? *Sleep elevated *Humidifier/Vaporizer *Flonase 2 sprays in each nostril daily but be aware that it may take 2-3 days before you notice improvement Follow up IMMEDIATELY for new or worsening symptoms or no Noticeable improvement over the next 48-72 hours. 911 for difficulty breathing or swallowing Clinical Impressions Clinical Impression: Sinusitis Qualifiers: Sinusitis location: unspecified location Chronicity: unspecified Qualified Code(s): J32.9 - Chronic sinusitis, unspecified Instructions Patient Instructions: Sinusitis, DI for Sinusitis Discharge ED Provider: Deb Ken [facility] [place] General Stated complaint: congestion runny nose sinus pressure Mode of Arrival: Ambulatory Source of Information: Patient Limitations: No Limitations Time Seen by Provider: 12/24/23 17:03 Description of Symptoms (Recalled from Triage Doc. by RN): PATIENT C/O SINUS DRAINAGE, CONGESTION, AND COUGH THAT STARTED TODAY HEENT Symptoms (Recalled from RN notes): Yes Resp Symptoms (Recalled from RN notes): Yes Skin Symptoms (Recalled from RN notes): No MS Symptoms (Recalled from RN notes): No Functional Status (Recalled from RN notes): WNL History of Present Illness Provider Complaint: Patient states that she has been having sinus pain and pressure with some drainage in the back of her throat and today she started with a little cough so she came in before it got worse Related Data Home Medications Medication Instructions Recorded Confirmed bupropion HCl 150 mg 24 hr tablet, 150 mg PO DAILY 12/24/23 12/24/23 extended release divalproex 500 mg tablet,delayed 500 mg PO DAILY 12/24/23 12/24/23 release donepezil 10 mg tablet 10 mg PO DAILY 12/24/23 12/24/23 lisinopril 5 mg tablet 5 mg PO DAILY 12/24/23 12/24/23 montelukast 10 mg tablet 10 mg PO DAILY 12/24/23 12/24/23 omeprazole 20 mg capsule,delayed 20 mg PO DAILY 12/24/23 12/24/23 release oxybutynin chloride 10 mg 10 mg PO DAILY 12/24/23 12/24/23 tablet,extended release 24 hr venlafaxine 150 mg 150 mg PO DAILY 12/24/23 12/24/23 capsule,extended release 24 hr Previous Rx's Medication Instructions Recorded azithromycin 250 mg tablet See Rx Instructions PO .COMPLEX 5 12/24/23 (Zithromax Z-Liang) days #6 tabs benzonatate 100 mg capsule 100 mg PO TID PRN cough #30 caps 12/24/23 fluticasone propionate 50 1 - 2 spray intranasal DAILY #16 12/24/23 mcg/actuation nasal grams spray,suspension (Flonase Allergy Relief) methylprednisolone 4 mg tablets in See Rx Instructions .Route 12/24/23 a dose pack (Medrol (Liang)) .COMPLEX 6 days #21 tabs Allergies Allergy/AdvReac Type Severity Reaction Status Date / Time latex Allergy Unknown Verified 12/06/23 14:18 Penicillins [PENICILLINS] Allergy Unknown Verified 12/06/23 14:18 Worker's Comp Is this a Worker's Comp case?: No [facility] Disclaimer: The information contained in this section may have been updated after the patient was seen, as this information can be updated by other users. Social History Smoking Status: Former smoker second hand exposure: No alcohol intake: never substance use type: denies use current occupational status: retired Travel in the last 8 weeks: None household members: none housing: house current occupational exposures/hazards: No caffeine: Yes ROS Obtained: Yes All systems reviewed & no additional complaints except as documented and Yes Systems reviewed as appropriate & no additional complaints except as documented Constitutional Constitutional: Reports system reviewed and no additional complaints, except as documented and Reports as per HPI ENT Ears, Nose, Mouth, and Throat: Reports system reviewed and no additional complaints, except as documented, Reports as per HPI, Reports sinus pain and Reports sinus pressure Cardiovascular Cardiovascular: Reports system reviewed and no additional complaints, except as documented and Reports as per HPI Respiratory Respiratory: Reports system reviewed and no additional complaints, except as documented, Reports as per HPI, Denies shortness of breath, Denies chest congestion and Reports cough Gastrointestinal Gastrointestingal: Reports system reviewed and no additional complaints, except as documented and as per HPI Musculoskeletal Musculoskeletal: Reports system reviewed and no additional complaints, except as documented and Reports as per HPI Physical Exam General General appearance: alert and in no apparent distress ENT ENT exam: Present mucous membranes moist Expanded ENT Exam Nose exam: Present sinus tenderness Throat exam: Present other (PND noted) Respiratory Respiratory exam: Present normal lung sounds bilaterally; Absent respiratory distress or wheezes Cardiovascular Cardiovascular exam: Present regular rate, normal rhythm and normal heart sounds Neurological Exam Neurological exam: Present alert, oriented X3 and normal gait Medical Decision Making Morgan Inquiry Pt receiving controlled substance: No Morgan was queried for this patient: No Vital Signs: 12/24/23 16:35 Temperature 97.5 F L Temperature Source Oral Pulse Rate [Left Brachial] 97 H Respiratory Rate 19 Blood Pressure [Left Arm] 155/74 H Blood Pressure Mean [Left Arm] 101 Blood Pressure Source [Left Arm] Automatic Cuff Blood Pressure Position [Left Arm] Sitting 02 Sat by Pulse Oximetry 97 Oxygen Delivery Method Room Air Medical Decision Narrative: Patient states that she has take azithromycin and Medrol with her current medications without complications or reactions
[2023-12-24 17:07] VITALS: BP 155/74; PULSE 97; RESP 19; TEMP 36.4; O2SAT 97
== END 2023-12-24 17:19 | disposition home or self-care (01) ==
PROVIDERS: Emergency Provider Nurse Practitioner; PCP Family Medicine
DX: J01.90 Acute sinusitis, unspecified (principal); R09.82 Postnasal drip; R09.81 Nasal congestion; R05.9 Cough, unspecified; Z87.891 Personal history of nicotine dependence
CPT/HCPCS: 99212; 99214; G0463

== ENCOUNTER 2024-03-02 12:52 | Outpatient (CLI) | payer MEDICARE, MEDICAID, SELFPAY ==
--- NOTE | 2024-03-02 12:52 | US_ITS ---
FINAL REPORT CLINICAL HISTORY: claudication, LE discoloration, previous smoker, HTN, TIA/CVA, pre op for hammertoe bilateral feet. FINDINGS: LOWER EXTREMITY SEGMENTAL PRESSURE MEASUREMENTS Pressure indices are as follows: RIGHT LOWER EXTREMITY: Lower thigh: 1.1 Calf: 1.12 Ankle, posterior tibial artery: 0.97 Ankle, dorsalis pedis: 0.99 Toe: 0.71 LEFT LOWER EXTREMITY: Lower thigh: 1.1 Calf: 1.1 Ankle, posterior tibial artery: 0.93 Ankle, dorsalis pedis: 1.1 Toe: 0.63 IMPRESSION: Normal pressure indices. Reviewed, Interpreted and Dictated by Jeison Lindsay MD Transcribed by Caroline Mcdaniel Authenticated and [facility]
--- NOTE | 2024-03-02 12:52 | CA_ITS ---
APPROVED REPORT EXAM: Comprehensive 2D, Doppler, and color-flow Echocardiogram [employer] Developer And Manager: Sarah Enciso CRT Ht: 5 ft 6 in Wt: 209lbs BSA: 2.04 BP: 136/79 mmHg Indications: Hypertension/HDD, PVD, CLAUDICATION TDE extremely poor windows, limited images obtained M-Mode Dimensions LA Diam 3.14 cm (1.9-4.0) LV Diastology E Decel Time 150 (160-240 msec) E/A Ratio 0.39 MED A' 12.40 cm/s LAT A' 15.90 cm/s Aortic Valve AO Peak GR. 2.90 mmHg Mitral Valve MV E Max Rupesh. 37.0 (40-130 cm/s) MV A Velocity 95.0 (40-130 cm/s) E/A Ratio 0.39 MV PHT 44.0 ms Tricuspid Valve TR P. Velocity 92.00 cm/s RAP Estimate 10.00 mmHg RVSP 13.40 mmHg Left Ventricle The left ventricle is normal size. The left ventricular systolic function is normal. The left ventricular ejection fraction is within the normal range. There is increased LV wall thickness. Regional wall motion cannot be evaluated due to technically difficult study. Diastolic function is indeterminate. LVEF is 55%. Right Ventricle The right ventricle is not well-visualized. Atria The left atrium is not well-visualized. The right atrium is not well-visualized. Aortic Valve The aortic valve opens well. There is no aortic valvular stenosis. No aortic regurgitation is present. Mitral Valve The mitral valve is grossly normal in structure. No evidence of mitral valve stenosis. There is no mitral valve regurgitation noted. Tricuspid Valve The tricuspid valve leaflets are not well-visualized. Pulmonic Valve The pulmonic valve leaflets are not well-visualized. Great Vessels The aortic root is not well-visualized. The IVC is not well-visualized. Pericardium There is no pericardial effusion. Other Information Study Quality: Technically Difficult. Technically limited study due to lung disease. Conclusion Technically very difficult and limited study due to poor acoustic windows. Grossly, normal LV systolic function. No significant valvular disease in the AV or MV. The TV and PV are not well-visualized in the study. If further evaluation for biventricular size and function or valvular disease is clinically indicated, cardiac MRI is recommended. Future TTE's may be performed with ultrasound enhancing agent for better delineation of the LV endocardial borders. Electronically signed by : Dolly Carr MD 03/06/2024 13:16:19
== END 2024-03-02 23:59 | disposition home or self-care (01) ==
LOC: RT 12:52
PROVIDERS: PCP Family Medicine; Visit Provider Nurse Practitioner
DX: I73.9 Peripheral vascular disease, unspecified (principal); I10 Essential (primary) hypertension; L81.9 Disorder of pigmentation, unspecified; Z86.79 Personal history of other diseases of the circulatory system; Z87.891 Personal history of nicotine dependence
CPT/HCPCS: 93306; 93923

== ENCOUNTER 2024-07-22 13:55 | Emergency (ER) | payer MEDICARE, MEDICAID, SELFPAY ==
[2024-07-22 15:05] VITALS: BP 143/83; PULSE 89; RESP 18; TEMP 36.6; O2SAT 98; BMI 31.4
--- NOTE | 2024-07-22 15:59 | EXP.UTC ---
Discharge Plan Disposition Patient Disposition: Home, Self-Care Condition: Good Prescriptions Prescriptions: New levocetirizine 5 mg tablet 5 mg PO DAILY Qty: 30 1RF benzonatate 100 mg capsule 100 mg PO TID PRN (Reason: cough) Qty: 30 0RF cefdinir 300 mg capsule 300 mg PO Q12H 10 Days Qty: 20 0RF No Action oxybutynin chloride 10 mg tablet extended release 24hr 10 mg PO DAILY donepezil 10 mg tablet 10 mg PO DAILY venlafaxine 150 mg capsule,extended release 24hr 150 mg PO DAILY divalproex 500 mg tablet,delayed release (DR/EC) 500 mg PO DAILY omeprazole 20 mg capsule,delayed release(DR/EC) 20 mg PO DAILY montelukast 10 mg tablet 10 mg PO DAILY lisinopril 5 mg tablet 5 mg PO DAILY divalproex 250 mg tablet extended release 24 hr 250 mg PO DAILY bupropion HCl 300 mg tablet extended release 24 hr 300 mg PO DAILY memantine 10 mg tablet 10 mg PO DAILY Referrals Follow up/Referrals: Jeison Mederos MD [Primary Care Provider] - See instructions Activity Restrictions/Add. Instructions Additional Instructions/Restrictions: If no improvement in a week, may start Cefdinir. Take other medication as prescribed. Increase fluids and rest. If symptom persist or worsen, return to clinic/PCP. Clinical Impressions Clinical Impression: Acute upper respiratory infection Instructions Patient Instructions: DI for Viral Upper Respiratory Infection -- Adult Print Language Print Language: Urdu Discharge ED Provider: Venus Phoenix [facility] General Stated complaint: sore throat, headache Mode of Arrival: Ambulatory Source of Information: Patient Limitations: No Limitations Time Seen by Provider: 07/22/24 15:42 Description of Symptoms (Recalled from Triage Doc. by RN): PATIENT C/O SINUS PRESSURE, DRAINAGE AND COUGH SINCE YESTERDAY HEENT Symptoms (Recalled from RN notes): Yes Resp Symptoms (Recalled from RN notes): Yes Skin Symptoms (Recalled from RN notes): No MS Symptoms (Recalled from RN notes): No Functional Status (Recalled from RN notes): WNL Related Data Home Medications ?Medication ?Instructions ?Recorded ?Confirmed bupropion HCl 300 mg 24 hr tablet, 300 mg PO DAILY 07/22/24 07/22/24 extended release divalproex 250 mg tablet,extended 250 mg PO DAILY 07/22/24 07/22/24 release 24 hr divalproex 500 mg tablet,delayed 500 mg PO DAILY 07/22/24 07/22/24 release donepezil 10 mg tablet 10 mg PO DAILY 07/22/24 07/22/24 lisinopril 5 mg tablet 5 mg PO DAILY 07/22/24 07/22/24 memantine 10 mg tablet 10 mg PO DAILY 07/22/24 07/22/24 montelukast 10 mg tablet 10 mg PO DAILY 07/22/24 07/22/24 omeprazole 20 mg capsule,delayed 20 mg PO DAILY 07/22/24 07/22/24 release oxybutynin chloride 10 mg 10 mg PO DAILY 07/22/24 07/22/24 tablet,extended release 24 hr venlafaxine 150 mg 150 mg PO DAILY 07/22/24 07/22/24 capsule,extended release 24 hr Previous Rx's ?Medication ?Instructions ?Recorded benzonatate 100 mg capsule 100 mg PO TID PRN cough #30 caps 07/22/24 cefdinir 300 mg capsule 300 mg PO Q12H 10 days #20 caps 07/22/24 levocetirizine 5 mg tablet 5 mg PO DAILY #30 tabs 07/22/24 Allergies Allergy/AdvReac Type Severity Reaction Status Date / Time latex Allergy Unknown Verified 02/23/24 15:14 Penicillins [PENICILLINS] Allergy Unknown Verified 02/23/24 15:14 Worker's Comp Is this a Worker's Comp case?: No [facility] Disclaimer: The information contained in this section may have been updated after the patient was seen, as this information can be updated by other users. Medical History (Updated 07/22/24 @ 16:14 by Venus Phoenix APRN) Subdural hemorrhage Lower extremity injury Social History Smoking Status: Former smoker second hand exposure: No alcohol intake: never substance use type: denies use current occupational status: retired Travel in the last 8 weeks: None household members: none housing: house current occupational exposures/hazards: No caffeine: Yes ROS Obtained: Yes All systems reviewed & no additional complaints except as documented Constitutional Constitutional: Reports system reviewed and no additional complaints, except as documented Eyes Eyes: Reports system reviewed and no additional complaints, except as documented ENT Ears, Nose, Mouth, and Throat: Reports system reviewed and no additional complaints, except as documented, Reports nasal congestion, Reports nasal discharge and Reports post nasal drip Cardiovascular Cardiovascular: Reports system reviewed and no additional complaints, except as documented Respiratory Respiratory: Reports system reviewed and no additional complaints, except as documented and Reports non-productive cough Gastrointestinal Gastrointestingal: Reports system reviewed and no additional complaints, except as documented Genitourinary Female Genitourinary: Reports system reviewed and no additional complaints, except as documented Musculoskeletal Musculoskeletal: Reports system reviewed and no additional complaints, except as documented Integumentary/Breasts Skin/Breast: Reports system reviewed and no additional complaints, except as documented Neurologic Neurologic: Reports system reviewed and no additional complaints, except as documented Endocrine Endocrine: Reports system reviewed and no additional complaints, except as documented Hematologic/Lymphatic Henatologic/Lymphatic: Reports system reviewed and no additional complaints, except as documented Allergic/Immunologic Allergic/Immunologic: Reports system reviewed and no additional complaints, except as documented Physical Exam General General appearance: alert and in no apparent distress Head Head exam: atraumatic and normocephalic Eye Eye exam: Present normal appearance ENT ENT exam: Present mucous membranes moist Expanded ENT Exam External ear exam: Present normal external inspection Nose exam: Present sinus tenderness Nasal speculum exam: Bilateral: other (clear) Mouth exam: Present normal external inspection Teeth exam: Present normal inspection Throat exam: Present tonsillar erythema Comment: post nasal drainage Neck Neck exam: Present normal inspection and lymphadenopathy Chest Chest inspection: Present normal inspection and symmetric chest wall rise Respiratory Respiratory exam: Present other (course sounds throughout with strong harsh cough) Cardiovascular Cardiovascular exam: Present regular rate and normal rhythm Abdominal Exam Abdominal exam: Present soft and normal bowel sounds Back Exam Back exam: Present normal inspection Neurological Exam Neurological exam: Present alert and oriented X3 Psychiatric Psychiatric exam: Present normal affect and normal mood Skin Skin exam: Present warm, dry and intact Lymphatic Lymphatic Findings: no adenopathy Medical Decision Making Medical Records Screening: Per USPSTF and CDC recommendations, given the prevalence of disease in our region, it is our hospital?s policy to screen for HIV and viral Hepatitis for all patients aged 18 and over and those with ongoing risk factors. Morgan Inquiry Pt receiving controlled substance: No Morgan was queried for this patient: No Vital Signs: 07/22/24 15:05 Temperature 97.9 F Temperature Source Oral Pulse Rate [Left Brachial] 89 Respiratory Rate 18 Blood Pressure [Left Arm] 143/83 H Blood Pressure Mean [Left Arm] 103 Blood Pressure Source [Left Arm] Automatic Cuff Blood Pressure Position [Left Arm] Sitting 02 Sat by Pulse Oximetry 98 Oxygen Delivery Method Room Air
[2024-07-22 16:15] VITALS: BP 143/83; PULSE 89; RESP 18; TEMP 36.6; O2SAT 98
== END 2024-07-22 16:23 | disposition home or self-care (01) ==
PROVIDERS: Emergency Provider Nurse Practitioner Family; PCP Family Medicine
DX: J06.9 Acute upper respiratory infection, unspecified (principal)
CPT/HCPCS: 99213; G0381

== ENCOUNTER 2024-08-29 13:00 | Outpatient (RCR) | payer MEDICARE, MEDICAID, SELFPAY | END 2024-08-29 23:59 | disposition home or self-care (01) | LOC: PT 13:00 | PROVIDERS: Visit Provider Nurse Practitioner Family | DX: M17.0 Bilateral primary osteoarthritis of knee (principal) | CPT/HCPCS: 97010; 97014; 97110; 97112; 97116; 97163; 97164; 97530; G0283 ==

== ENCOUNTER 2024-09-23 16:31 | Emergency (ER) | payer MEDICARE, MEDICAID, SELFPAY ==
[2024-09-23 16:53] VITALS: BP 154/85; PULSE 103; RESP 18; TEMP 36.6; O2SAT 98; BMI 32.8
--- NOTE | 2024-09-23 17:20 | ED_ITS ---
Discharge Plan Disposition Patient Disposition: Home, Self-Care Condition: Good Prescriptions Prescriptions: New benzonatate 100 mg capsule 100 mg PO TID PRN (Reason: cough) Qty: 30 0RF doxycycline hyclate 100 mg capsule 100 mg PO BID 10 Days Qty: 20 0RF No Action oxybutynin chloride 10 mg tablet extended release 24hr 10 mg PO DAILY donepezil 10 mg tablet 10 mg PO DAILY venlafaxine 150 mg capsule,extended release 24hr 150 mg PO DAILY divalproex 500 mg tablet,delayed release (DR/EC) 500 mg PO DAILY omeprazole 20 mg capsule,delayed release(DR/EC) 20 mg PO DAILY montelukast 10 mg tablet 10 mg PO DAILY lisinopril 5 mg tablet 5 mg PO DAILY divalproex 250 mg tablet extended release 24 hr 250 mg PO DAILY bupropion HCl 300 mg tablet extended release 24 hr 300 mg PO DAILY memantine 10 mg tablet 10 mg PO DAILY levocetirizine 5 mg tablet 5 mg PO DAILY Qty: 30 1RF benzonatate 100 mg capsule 100 mg PO TID PRN (Reason: cough) Qty: 30 0RF cefdinir 300 mg capsule 300 mg PO Q12H 10 Days Qty: 20 0RF Referrals Follow up/Referrals: Jeison Mederos MD [Primary Care Provider] - See instructions Activity Restrictions/Add. Instructions Additional Instructions/Restrictions: Take medication as prescribed. Increase fluids and rest. If symptoms persist or worsen, follow up with Primary Care provider. Clinical Impressions Clinical Impression: Acute lower respiratory infection Instructions Patient Instructions: Acute Bronchitis Print Language Print Language: Maltese Discharge ED Provider: Venus Phoenix [facility] HPI General Stated complaint: SOA Mode of Arrival: Ambulatory Source of Information: Patient Time Seen by Provider: 09/23/24 17:19 Description of Symptoms (Recalled from Triage Doc. by RN): COLD, COUGH X3 MONTHS HEENT Symptoms (Recalled from RN notes): No Resp Symptoms (Recalled from RN notes): Yes Skin Symptoms (Recalled from RN notes): No MS Symptoms (Recalled from RN notes): No Functional Status (Recalled from RN notes): WNL History of Present Illness Provider Complaint: Pt reports that she has a history of histoplasmosis and has issues with her lungs from time to time. Pt states that she had to use her inhaler today and this did help her SOA and wheezing. Related Data Home Medications ?Medication ?Instructions ?Recorded ?Confirmed bupropion HCl 300 mg 24 hr tablet, 300 mg PO DAILY 07/22/24 07/22/24 extended release divalproex 250 mg tablet,extended 250 mg PO DAILY 07/22/24 07/22/24 release 24 hr divalproex 500 mg tablet,delayed 500 mg PO DAILY 07/22/24 07/22/24 release donepezil 10 mg tablet 10 mg PO DAILY 07/22/24 07/22/24 lisinopril 5 mg tablet 5 mg PO DAILY 07/22/24 07/22/24 memantine 10 mg tablet 10 mg PO DAILY 07/22/24 07/22/24 montelukast 10 mg tablet 10 mg PO DAILY 07/22/24 07/22/24 omeprazole 20 mg capsule,delayed 20 mg PO DAILY 07/22/24 07/22/24 release oxybutynin chloride 10 mg 10 mg PO DAILY 07/22/24 07/22/24 tablet,extended release 24 hr venlafaxine 150 mg 150 mg PO DAILY 07/22/24 07/22/24 capsule,extended release 24 hr Previous Rx's ?Medication ?Instructions ?Recorded benzonatate 100 mg capsule 100 mg PO TID PRN cough #30 caps 07/22/24 cefdinir 300 mg capsule 300 mg PO Q12H 10 days #20 caps 07/22/24 levocetirizine 5 mg tablet 5 mg PO DAILY #30 tabs 07/22/24 benzonatate 100 mg capsule 100 mg PO TID PRN cough #30 caps 09/23/24 doxycycline hyclate 100 mg capsule 100 mg PO BID 10 days #20 caps 09/23/24 Allergies Allergy/AdvReac Type Severity Reaction Status Date / Time latex Allergy Unknown Verified 02/23/24 15:14 Penicillins (PENICILLINS) Allergy Unknown Verified 02/23/24 15:14 Worker's Comp Is this a Worker's Comp case?: No [facility] Disclaimer: The information contained in this section may have been updated after the patient was seen, as this information can be updated by other users. Medical History (Updated 09/23/24 @ 17:39 by Venus Phoenix APRN) Subdural hemorrhage Lower extremity injury Social History Smoking Status: Former smoker second hand exposure: No alcohol intake: never substance use type: denies use current occupational status: retired Travel in the last 8 weeks: None household members: none housing: house current occupational exposures/hazards: No caffeine: Yes Have you lived/traveled outside [place] in past 30 days?: No Contact w/someone who lives/traveled outside US past 30 days?: No Exposure to someone with infectious disease in past 14 days?: No Do you have a fever (greater than 100.4 F or 38 C)?: No Have you tested positive for COVID-19: No Exposed to someone with COVID-19 in past 14 days?: No Do you have a sore throat?: No Do you have a cough?: No Do you have any weakness?: No Do you have any diarrhea?: No Are you experiencing any unusual bleeding?: No Do you have any muscle aches/pain?: No Do you have any abdominal pain?: No Are you experiencing loss of taste or smell?: No ROS Obtained: Yes All systems reviewed & no additional complaints except as documented Constitutional Constitutional: Reports system reviewed and no additional complaints, except as documented and Reports malaise Eyes Eyes: Reports system reviewed and no additional complaints, except as documented ENT Ears, Nose, Mouth, and Throat: Reports system reviewed and no additional complaints, except as documented Cardiovascular Cardiovascular: Reports system reviewed and no additional complaints, except as documented Respiratory Respiratory: Reports system reviewed and no additional complaints, except as documented, Reports shortness of breath, Reports chest congestion, Reports cough and Reports wheezing Gastrointestinal Gastrointestingal: Reports system reviewed and no additional complaints, except as documented Genitourinary Female Genitourinary: Reports system reviewed and no additional complaints, except as documented Musculoskeletal Musculoskeletal: Reports system reviewed and no additional complaints, except as documented Integumentary/Breasts Skin/Breast: Reports system reviewed and no additional complaints, except as documented Neurologic Neurologic: Reports system reviewed and no additional complaints, except as documented Endocrine Endocrine: Reports system reviewed and no additional complaints, except as documented Hematologic/Lymphatic Henatologic/Lymphatic: Reports system reviewed and no additional complaints, except as documented Allergic/Immunologic Allergic/Immunologic: Reports system reviewed and no additional complaints, except as documented and Reports wheezing Physical Exam General General appearance: alert and in no apparent distress Head Head exam: atraumatic and normocephalic Eye Eye exam: Present normal appearance ENT ENT exam: Present mucous membranes moist Expanded ENT Exam External ear exam: Present normal external inspection Nose exam: Absent sinus tenderness Nasal speculum exam: Bilateral: normal Mouth exam: Present normal external inspection Teeth exam: Present normal inspection Throat exam: Present normal inspection Neck Neck exam: Present normal inspection Chest Chest inspection: Present normal inspection and symmetric chest wall rise Respiratory Respiratory exam: Present other Expanded Respiratory Exam Location: Left: wheezes (with course sounds throughout.) and Lower: wheezes (with course sounds throughout.) Cardiovascular Cardiovascular exam: Present regular rate and normal rhythm Abdominal Exam Abdominal exam: Present soft and normal bowel sounds Back Exam Back exam: Present normal inspection Neurological Exam Neurological exam: Present alert and oriented X3 Psychiatric Psychiatric exam: Present normal affect and normal mood Skin Skin exam: Present warm, dry and intact Lymphatic Lymphatic Findings: no adenopathy Medical Decision Making Medical Records Screening: Per USPSTF and CDC recommendations, given the prevalence of disease in our region, it is our hospital?s policy to screen for HIV and viral Hepatitis for all patients aged 18 and over and those with ongoing risk factors. Morgan Inquiry Pt receiving controlled substance: No Morgan was queried for this patient: No Vital Signs: 09/23/24 16:53 Temperature 97.9 F Temperature Source Oral Pulse Rate [Left Radial] 103 H Respiratory Rate 18 Blood Pressure [Left Arm] 154/85 H Blood Pressure Mean [Left Arm] 108 02 Sat by Pulse Oximetry 98
[2024-09-23 17:40] VITALS: BP 154/85; PULSE 103; RESP 18; TEMP 36.6
== END 2024-09-23 17:43 | disposition home or self-care (01) ==
PROVIDERS: Emergency Provider Nurse Practitioner Family; PCP Family Medicine
DX: J06.9 Acute upper respiratory infection, unspecified (principal)
CPT/HCPCS: 99213; G0381

== ENCOUNTER 2024-09-29 15:45 | Outpatient (CLI) | payer MEDICARE, MEDICAID, SELFPAY ==
--- NOTE | 2024-09-29 15:49 | XR_ITS ---
FINAL REPORT CLINICAL HISTORY: BRONCHITIS FINDINGS: No acute pulmonary density is evident. There is no evidence of effusion or other pleural disease. The mediastinum has a normal appearance. The cardiac silhouette is unremarkable. IMPRESSION: Unremarkable chest exam. Reviewed, Interpreted and Dictated by Jeison Lindsay MD Transcribed by Caroline Mcdaniel Authenticated and [facility]
== END 2024-09-29 23:59 | disposition home or self-care (01) ==
LOC: RAD 15:46
PROVIDERS: PCP Family Medicine; Visit Provider Physician Assistant
DX: J40 Bronchitis, not specified as acute or chronic (principal)
CPT/HCPCS: 71046

== ENCOUNTER 2024-10-16 13:39 | Outpatient (CLI) | payer MEDICARE, MEDICAID, SELFPAY ==
--- NOTE | 2024-10-16 13:42 | MM_ITS ---
PROCEDURE INFORMATION: Exam: MG Bilateral Screening 3D Mammography Exam date and time: 10/16/2024 1:46 PM Age: 68 years old Clinical indication: Screening examination TECHNIQUE: Imaging protocol: Bilateral Screening tomosynthesis and 2D mammography including computer-aided detection (CAD) when performed. COMPARISON: 1. MG MM DIG SCREENING MAMM BI W/CAD 07/15/2023 3:52 PM 2. MG MM DIG SCREENING MAMM BI W/CAD 11/06/2021 1:02 PM FINDINGS: MAMMOGRAPHY: Breast composition: The breasts are almost entirely fatty. Mass: None. Architectural distortion: None. Calcifications: No suspicious calcifications. Asymmetric density: None. Skin thickening: None. Axillary adenopathy: None. IMPRESSION: No mammographic evidence of malignancy. Annual screening is recommended unless otherwise clinically indicated. ASSESSMENT: BI-RADS Category 1: Negative.
== END 2024-10-16 23:59 | disposition home or self-care (01) ==
LOC: RAD 13:39
PROVIDERS: PCP Family Medicine; Visit Provider Family Medicine
DX: Z12.31 Encounter for screening mammogram for malignant neoplasm of breast (principal)
CPT/HCPCS: 77063; 77067

== ENCOUNTER 2024-10-31 14:05 | Outpatient (RCR) | payer MEDICARE, MEDICAID, SELFPAY ==
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
== END 2024-10-31 23:59 | disposition home or self-care (01) ==
LOC: PT 14:05
PROVIDERS: PCP Family Medicine; Visit Provider Psychiatry & Neurology Sleep Medicine
DX: M25.561 Pain in right knee (principal); M25.562 Pain in left knee; Z87.828 Personal history of other (healed) physical injury and trauma
CPT/HCPCS: 97163

== ENCOUNTER 2025-01-09 13:00 | Outpatient (RCR) | payer MEDICARE, MEDICAID, SELFPAY ==
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
== END 2025-01-09 23:59 | disposition home or self-care (01) ==
LOC: PT 13:00
PROVIDERS: PCP Family Medicine; Visit Provider Family Medicine
DX: Z87.828 Personal history of other (healed) physical injury and trauma (principal)
CPT/HCPCS: 97110; 97163; 97530

== ENCOUNTER 2025-02-06 14:00 | Outpatient (RCR) | payer MEDICARE, MEDICAID, SELFPAY ==
--- NOTE | 2025-01-16 17:03 | HMH.RHREAS ---
Rehab Reassessment Rehab OP Re-assessment Start: 01/16/25 16:36 Freq: Status: Active Protocol: Document 01/16/25 16:37 MARIANJULIO CESAR (Rec: 01/16/25 17:02 MEETA [id number]) E-signed By Martha Waggoner PT Lower Extremity Functional Index Activities Today, do you or would you have any difficulty at all with: a.Any of your usual work, housework or Extreme difficulty or unable school activities to perform activity b. Your usual hobbies, recreational or Extreme difficulty or unable sporting activities to perform activity c. Getting into or out of the bath No difficulty d. Walking between rooms No difficulty e. Putting on your shoes or socks No difficulty f. Squatting No difficulty g. Lifting an object, like a bag of A little bit of difficulty groceries from the floor h. Performing light activities around Moderate difficulty your home i. Performing heavy activities around Moderate difficulty your home j. Getting into or out of a car No difficulty k. Walking 2 blocks Extreme difficulty or unable to perform activity l. Walking a mile Extreme difficulty or unable to perform activity m. Going up or down 10 stairs (about 1 No difficulty flight of stairs) n. Standing for 1 hour No difficulty o. Sitting for 1 hour Extreme difficulty or unable to perform activity p. Running on even ground Extreme difficulty or unable to perform activity q. Running on uneven ground Extreme difficulty or unable to perform activity r. Making sharp turns while running fast Extreme difficulty or unable to perform activity s. Hopping Extreme difficulty or unable to perform activity t. Rolling over in bed No difficulty LEFI Score Lower Extremity Functional Index Score 39 Rehab Re-assessment Subjective Subjective Pt reports she feels 50-60% improved since starting PT. 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 Pt reports she is able to walk ~ 10-15ft without her RW but she wobbles and feels unsteady. Pt denies recent falls. Pt reports she has recently started participating in water aerobics Objective Objective Notes Gait: wide based gait with forward trunk lean and hips posterior to ROBYN without use of RW, CGA BLE MMT: 4/5 grossly 5x S2S: 18 with 1 arm support - unable to perform 1 rep without use of UE although performed 40 minutes of aerobic exercise I prior to PT session this date Assessment Assessment Notes Pt has attended 7 PT treatment sessions consisting of aerobic exercise, BLE strengthening, balance/ proprioception training and HEP with good tolerance. Pt demonstrated improved LEFS score and BLE MMT this date compared to the initial evaluation. Pt demonstrated regression in 5x sit to stand outcome measure with inability to perform without use of UE this date; however, performed 40 minutes of exercise prior to PT treatment and was likely fatigued. Overall, the pt would continue to benefit from skilled PT to further improve BLE strength, balance/ proprioception and gait to improve overall QOL and decrease fall risk. Patient goals met ST/4 Goals Not Met 5x S2S, LEFS score, LTG Revised Goals n/a Plan Plan Continue POC Frequency of Therapy 2x/week Duration of therapy 4 more weeks Time and Billing Re-Eval Time 15 Re-Eval Billing Units 0 Charge for PT reassessment? No Charge for OT reassessment? No PHYSICIAN CERTIFICATION: I certify the specified therapy services for Stephani Aldana are required, authorized, and reviewed every 30 days.
== END 2025-02-06 23:59 | disposition home or self-care (01) ==
LOC: PT 14:00
PROVIDERS: PCP Family Medicine; Visit Provider Family Medicine
DX: Z13.89 Encounter for screening for other disorder (principal); Z87.828 Personal history of other (healed) physical injury and trauma
CPT/HCPCS: 97110; 97112; 97116; 97530

== ENCOUNTER 2025-02-27 13:00 | Outpatient (RCR) | payer MEDICARE, MEDICAID, SELFPAY ==
--- NOTE | 2025-02-15 18:34 | HMH.RHREAS ---
Rehab Reassessment Rehab OP Re-assessment Start: 02/13/25 16:12 Freq: Status: Active Protocol: Document 02/15/25 18:20 RENETTAASYA (Rec: 02/15/25 18:33 MARIANJULIO CESAR [id number]) E-signed By Martha Waggoner PT Lower Extremity Functional Index Activities Today, do you or would you have any difficulty at all with: a.Any of your usual Extreme difficulty or unable to perform activity work, housework or school activities b. Your usual Extreme difficulty or unable to perform activity hobbies, recreational or sporting activities c. Getting into or No difficulty out of the bath d. Walking between A little bit of difficulty rooms e. Putting on your No difficulty shoes or socks f. Squatting Extreme difficulty or unable to perform activity g. Lifting an object No difficulty , like a bag of groceries from the floor h. Performing light No difficulty activities around your home i. Performing heavy Quite a bit of difficulty activities around your home j. Getting into or Extreme difficulty or unable to perform activity out of a car k. Walking 2 blocks Extreme difficulty or unable to perform activity l. Walking a mile Extreme difficulty or unable to perform activity m. Going up or down Extreme difficulty or unable to perform activity 10 stairs (about 1 flight of stairs) n. Standing for 1 No difficulty hour o. Sitting for 1 No difficulty hour p. Running on even Extreme difficulty or unable to perform activity ground q. Running on uneven Extreme difficulty or unable to perform activity ground r. Making sharp Extreme difficulty or unable to perform activity turns while running fast s. Hopping Extreme difficulty or unable to perform activity t. Rolling over in No difficulty bed LEFI Score Lower Extremity 32 Functional Index Score Rehab Re-assessment Subjective Subjective Pt reports she feels 75% improved since starting PT. Pt states she has been very busy going to multiple funerals over the past 2 weeks and unable to go to water aerobics or be compliant with her HEP. She states her R knee and LE strength have improved overall. Pt states she feels like she still needs to work on her balance, states she continues to use the RW for all community ambulation but is starting to perform some short-distance household ambulation without an AD with improved confidence. Pt denies LOB or falls. Objective Objective Notes Gait: more narrow ROBYN with less forward lean, CGA without an AD Stairs: Difficulty performing reciprocal pattern when ascending stairs requiring step to pattern and HR, able to perform reciprocally with HR to descend stairs R knee AROM: 0-110 BLE MMT: hip flex 4/5, hip abd 4/5, hip add 4+/5, hip ext 4/5, knee ext 4+/5, knee flex 4+/5, ankle DF 4+/5 5x S2S: 12 without UE support Assessment Progress Assessment Progressing as Expected Assessment Notes Pt has attended 14 PT treatment sessions consisting of aerobic exercise, BLE strengthening, balance/ proprioception training and HEP with good tolerance. Pt demonstrated improved BLE strength, knee flexion AROM, gait and 5x sit to stand outcome measure this date. Pt is progressing well with ambulation and stair climbing with CGA in the clinic; however, continues to demonstrate fear-avoidance behavior which such activities independently. Overall, the pt would continue to benefit from skilled PT to further improve BLE strength, balance/proprioception and gait to improve overall QOL and decrease fall risk. [ End ] Patient goals met ST LT/7 Goals Not Met LEFS, gait, stairs, balance Revised Goals n/a Plan Plan Continue POC Frequency of Therapy 2x/week Duration of therapy 4 more weeks Time and Billing Re-Eval Time 11 Re-Eval Billing 0 Units Charge for PT No reassessment? Charge for OT No reassessment? PHYSICIAN CERTIFICATION: I certify the specified therapy services for Stephani Aldana are required, authorized, and reviewed every 30 days.
== END 2025-02-27 23:59 | disposition home or self-care (01) ==
LOC: PT 13:00
PROVIDERS: PCP Family Medicine; Visit Provider Family Medicine
DX: Z13.89 Encounter for screening for other disorder (principal); Z87.828 Personal history of other (healed) physical injury and trauma
CPT/HCPCS: 97110; 97116; 97530

== ENCOUNTER 2025-03-10 11:34 | Outpatient (CLI) | payer MEDICARE, MEDICAID, SELFPAY ==
--- OUTSIDE RECORDS SUMMARY | 2024-09-29 10:50 | XMS_ITS ---
Author Organization [facility] Address [address] [id number] Care Team Providers Care Bonderite Operator Name Role Phone Susana Mederos Primary Care Provider [phone] Allison Duggan Unavailable [phone] Allergies Allergen (clinical drug ingredient) Drug/Non Drug Allergy documented on EMR Reaction Allergy Type Onset Date Status Neosporin Unknown Drug Allergy Active bacitracin / polymyxin B Polysporin rash Drug Allergy Active Substance with [...] days Active Mupirocin 2 % 1 application Commercial Development Manager ally Twice a day; Duration: 5 day(s) [...] Blood pressure systolic 150 mm Hg 09/29/19 Blood pressure diastolic 86 repeat 130 mm Hg Heart Rate 66 /min 09/29/2024 Height 65 in 09/29/2024 Weight 198.2 lbs 09/29/2024 BMI 32.98 kg/m2 09/29/2024 Encounters Encounter Location Date Provider Diagnosis [facility] [address] [place] [id number] 09/29/2024 Allison Duggan Bronchitis J40 Assessments Encounter Date Diagnosis (ICD [...] Next Appt Details Follow Up: prn, Reason: Progress Notes * ELVAStephani MONKDOB: 6 (69 yo F)Acc No.[id number]:09/29/2024 Progress Notes Patient: Stephani PUCKETT Provider: REHAN Vaz :1955 A ge:68 Y S ex:Female Date:09/29/2024 Address:[address] [place], [place] [id number] Pcp:Susana Mederos Subjective: * Chief Complaints: * [...] stic Procedure: [facility]- [facility] [place]. * Family History: F ather: , [...] repeat 130/80, HR:66, O2 Sat:97% on RA, Nurse:DAKOTAH, Ht: 65, BMI:32.98. * Examination: E NT/Respiratory: [...] wheezes, no rales. Assessment: * Assessment: 1. Carlos somers - Raul (Primary) Plan: * Treatment: Value Reference Range [...] let patient know her CXR showed no pneumoniaNoEmber munoz 10/05/2024 11:34:04 AM > Pt informed * Procedure Codes: 9 [address] [place], [address] CAPILLARY BLOOD DRAW, 64948 CBC WITH AUTO DIFF, 51731 Flu Test- Nasal Swab, Modifiers: QW , 03373 COVID TEST IN HOUSE, Modifiers: QW * Follow Up: p rn * Images: Billing Information: * Visit Code: 48882 Office Visit, Est Pt., Level 3. * Procedure Codes: [address] [place]. [address] CAPILLARY BLOOD DRAW. 89338 CBC WITH AUTO DIFF. 28138 Flu Test- Nasal Swab. Modifiers: QW 81245 COVID TEST IN HOUSE. Modifiers: QW * Electronic signature of REHAN Olivares on 03/12/2025 at 11:41 AM EDT Sign off status: Pending * Provider: REHAN Vaz Date: 0 09/29/2024 Generated for Mag eckert/Marianna/eTransmitting on: 0 03/12/2025 11:41 AM EDT History and Physical Notes * HPI [...]
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
--- OUTSIDE RECORDS SUMMARY | 2025-02-26 09:30 | XMS_ITS ---
[facility] Address [address] [facility] [address] [id number] Care Team Providers Care Property Investor Name Role Phone Susana Mederos Primary Care Provider Allergies Allergen (clinical drug ingredient) Drug/Non Drug Allergy documented on EMR Reaction Allergy Type Onset Date Status Neosporin Unknown Drug Allergy Active bacitracin / polymyxin B Polysporin rash Drug Allergy Active Substance with penicillin structure and antibacterial mechanism of action (substance) Penicillins Unknown Drug Allergy Active REASON FOR VISIT 4 month check up, Needs labs & bone density screening Encounters Encounter Location Date Provider Diagnosis Manuel [address] [facility] [address] [place] [phone] 02/26/2025 Susana Mederos Plan Of Treatment No Information Progress Notes * Stephani ALDANADOB: (69 yo F)Acc No.[id number]:02/26/2025 Progress Notes Patient: Stephani PUCKETT Provider: Susana Mederos M.D. :1955 A ge:69 Y S ex:Female Date:02/26/2025 Address:[facility] [address] [place], [id number] Subjective: * Chief Complaints: * 1 . 4 month check up. 2. Needs labs & bone density screening. * HPI: H PI: 69 year old female presents with c/o Patient is here today for?Pt is here today for a 4 month check up. * ROS: D ERMATOLOGY: no R bridger. [...] stic Procedure: C erebral Hemorrhage 1994, UTI- [facility] 10/2014, Lt Knee Pain- [facility] [...] Status: Single. Past smoking status: no. * Allergies: P enicillins, Neosporin, Polysporin: rash. Objective: * Vitals: Assessment: Plan: * Treatment: * Images: Billing Information: * Visit Code: * Procedure Codes: * Electronic signature of Susana Mederos MD on 03/12/2025 at 11:41 AM EDT Sign off status: Pending * Provider: Susana Mederos M.D. Date: 0 02/26/2025 Generated for Mag eckert/Marianna/eTransmitting on: 0 03/12/2025 11:41 AM EDT History and Physical Notes * HPI (History of Present Illness) Category Sub-Category Detail Notes Category Not es HPI Patient is here today for Pt is here today for a 4 month check up
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
--- OUTSIDE RECORDS SUMMARY | 2025-03-12 11:42 | XMS_ITS | Encounter Summary ---
Author Organization [facility] Address [address] [place] [address] Care Team Providers Care Director Of Conservation Name Role Phone Vivek Mederos MD Primary Care Provider [phone] Genevieve Santos Unavailable [phone] Reason for Visit * Reason Comments Med Refill Encounter Details Date Type Department Care Team (Late st Contact Info) Description [facility] [place] [facility] [address] [place] [address] Gayle Aaron, CYLINDER HANDLER [address] [place] [address] Mild cognitive impairment Social History Tobacco Use Types Packs/Day Years Used Date Smoking Tobacco: Former Smokeless Tobacco: Never Alcohol Use Standard Drinks/Week Comments Not Currently 0 (1 standard drink = 0.6 oz pure alcohol) Alcoholic Drinks/day: History of alcohol abuse PHQ-2 Answer Date Recorded Patient Health Questionnaire-2 Score 0 08/09/2024 PHQ-9 Answer Date Recorded Patient Health Questionnaire-9 Score 7 06/14/2024 CAGE ASSESSMENT Answer Date Recorded Cage unable [...] drink first t nolvia in the 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) to steady your nerves or to get [...] on file documented as of this encounter Plan of Treatment Upcoming Encounters Date Type Department Care Team (Late st Contact Info) Description 03/14/2025 11:00 AM EDT Office Visit [facility] [address] [place] [address] Jane Rojas MD [address] [place] [address] 07/03/2025 1:10 PM EDT [facility] [place] [facility] [address] [place] [address] Gayle Aaron APRN [address] [place] [address] documented as of this encounter Visit Diagnoses Diagnosis Mild cognitive impairment Mild cognitive impairment, so stated documented in this encounter Additional Health Concerns Assessment Noted Time PHQ-9 Depression Total Score: 7 06/14/20 24 10:43 AM EDT A fall risk assessment has been complete d for the patient 08/09/2024 12:57 PM EST A Body Mass Index follow-up plan has been documented for the patient 12/25/2024 2:36 PM EDT documented as of this encounter Care Teams Director Of Conservation Relationship Specialty Start Date End Date Vivek Mederos MD [address] [place] [address] PCP - General 05/15/21 Genevieve Santos PA [address] [facility] [address] [place] [address] Physician Residence Supervisor Neurology 05/15/21 documented as of this encounter
--- OUTSIDE RECORDS SUMMARY | 2025-03-12 11:42 | XMS_ITS | Encounter Summary ---
Author Organization Healthcare Address [address] [place] [address] Care Team Providers Care Slab Grinder Name Role Phone Vivek Mederos MD Primary Care Provider [phone] Genevieve Santos Unavailable [phone] Reason for Visit * Reason Onset Date Comments HCN - Patient Message 05/21/2022 HCN - Rx Refill Request 05/21/2022 Encounter Details Date Type Department Care Team (Late st Contact Info) Description 05/21/2022 Telephone PFE SCHEDULING [address] [place] [id number] Julian Gallego MD [address] [place] [address] HCN - Patient Message; HCN - Rx Refill Request Social History Tobacco Use Types Packs/Day Years Used Date Smoking Tobacco: Former Smokeless Tobacco: Never Alcohol Use Standard Drinks/Week Comments Not Currently 0 (1 standard drink = 0.6 oz pure alcohol) Alcoholic Drinks/day: History of alcohol abuse PHQ-2 Answer Date Recorded Patient Health Questionnaire-2 Score 0 05/21/2022 Comments No Sex and Gender Information Value Date Recorded Sex Assigned at Female 07/30/2022 6:53 AM EST Legal Sex Female 7:29 PM EDT Gender Identity Female 07/30/2022 6:53 AM EST Sexual Orientation Not on file COVID-19 Exposure Response Date Recorded In the last 10 days, have yo u been in contact with someone who was confirmed or suspected to have Coronavirus/COVID-19? No / Unsure 05/21/2022 11:05 AM EDT documented as of this encounter Functional Status * Over the past 2 weeks, how often have you been bothered by any of the following problems? Question Answer Date of Assessment Author Little interest or pleasure in doing things Not at all 05/21/2022 11:28 AM EDT Litzy Storm Feeling down, depressed, or hopeless Not at all 04/2022 11:28 AM EDT Litzy Storm Patient Health Questionnaire-2 Score 0 04/2022 11:28 AM EDT Litzy Storm documented as of this encounter Miscellaneous Notes * Telephone Encounter - Analisa Burks RN - 05/22/2022 3:49 PM EDT Duplicate task * Telephone Encounter - Lyn Pierre - 05/22/2022 2:39 PM EDT Medication Refill Request Medication Name & Dosage: Methocarbamol 500mg Oxycodone 5mg Preferred Pharmacy & Location: [facility] pharmacy Days of medication remaining (if under 3 days please humberto as urgent): Best contact number and optimal time of day to reach caller: Additional comments/information from caller: Note: Please do not reply to this message. Follow-up communication and further actions as a result of this message need to be communicated with the patient directly, if the patient is not active onMyChart. If the patient is active on MyChart, they will receive notification of the communication/outcome via MyChart. * Telephone Encounter - [place] Ziegler - 05/21/2022 3:21 PM EDT Patient Phone Message Reason for Call: Pt calling requesting orders for a hospital bed. She states her insurance will cover one if she can get Dr. Gallego to order it. She says she has been sleeping in a chair. Pls call patient to advise if this can be done. The medical equipment company she would like to use is: [employer] [place] [phone] Best contact number and optimal time of day to reach caller: [phone] Note: Please do not reply to this message. Follow-up communication and further actions as a result of this message need to be communicated with the patient directly, if the patient is not active onMyChart. If the patient is active on MyChart, they will receive notification of the communication/outcome via [employer]. documented in this encounter Plan of Treatment Upcoming Encounters Date Type Department Care Team (Late st Contact Info) Description 03/14/2025 11:00 AM EDT [facility] Visit [facility] [address] [place] [address] Jane Rojas MD [address] [place] [address] 07/03/2025 1:10 PM EDT [facility] [place] [facility] [address] [place] [phone] Gayle Aaron APRN [address] [place] [address] documented as of this encounter Visit Diagnoses Not on filedocumented in this encounter Additional Health Concerns Assessment Noted Time A fall risk assessment has been complete d for the patient 05/21/2022 11:29 AM EDT documented as of this encounter Care Teams Slab Grinder Relationship Specialty Start Date End Date Vivek Mederos MD [address] [place] [address] PCP - General 05/15/21 Genevieve Santos PA [address] [place] [address] Physician Chief Architect Neurology 05/15/21 documented as of this encounter
--- OUTSIDE RECORDS SUMMARY | 2025-03-12 11:42 | XMS_ITS | Clinical Summary ---
Author Organization [facility] Address [facility] [address] [place] [address] Phone Care Team Providers Care Preschool Assistant Name Role Phone Dewey Wade DPM Unavailable [phone] Vivek Mederos MD Primary Care Provider [phone] Allergies Active Allergy Reactions Criticality Noted Date Comments Adhesive Tape-Silicones Rash Low 10/11/2017 Had to be treated with IV benadryl Benzalkonium Chloride Rash Low 11/09/2012 Penicillins Other (See Comments) 09/26/2012 As a child Medications aspirin 325 mg Take 325 mg by mouth daily. Active divalproex (DEPAKOTE ER) 500 mg Tb24 Take 150 mg by mouth nightly. Active ERGOCALCIFEROL, VITAMIN D2, (VITAMIN D ORAL) Take by mouth. Activ e omeprazole (PRILOSEC) 20 mg Take 20 mg by mouth daily. Active oxybutynin (DITROPAN) 5 mg tablet Take by mouth 2 times daily. Active venlafaxine (EFFEXOR-XR) 150 mg XR capsule Take 150 mg by mouth daily. Active CALCIUM CARBONATE/VITAM IN D3 (CALCIUM + D ORAL) Take by mouth. Activ e traMADol (ULTRAM) 50 mg tablet Take by mouth 3 times daily. prn Active donepezil (ARICEPT) 10 mg tablet Take 10 mg by mouth nightly. Active DELANO PRIMROSE/LINOLE IC/GAMOLENI (PRIMROSE OIL ORAL) Take by mouth. Activ e fish oil-omega-3 fatty acids 340-1,000 mg capsule Take 2 g by mouth daily. Active ACETAMINOPHEN (TYLENOL ARTHRITIS ORAL) Take by mouth. Active fluocinonide-em ollient (FLUOCINONIDE-E MOLLIENT) 0.05 % creamIndication s:Ulcer of calf (HCC),Dehiscenc e of closure of skin Apply twice a day sparingly around wound for irritation. Do not use on wound. 30 g 0 3 Active potassium (POTASSIMIN ORAL) Take 10 mEq by mouth daily. Active ondansetron (ZOFRAN) 4 mg Oral Tablet Take 4 mg by mouth every 8 hours as needed for Nausea. Active naproxen (NAPROSYN) 500 mg Oral Tablet Take 500 mg by mouth every 12 hours. Active mirabegron (MYRBETRIQ) 50 mg Oral Tablet Sustained Release 24 hr Take 50 mg by mouth daily. Active lisinopriL (PRINIVIL;ZESTR IL) 5 mg Oral Tablet Take 5 mg by mouth daily. Active linaCLOtide (LINZESS) 72 mcg Oral Capsule Take by mouth. Activ e cyclobenzaprine (FLEXERIL) 5 mg Oral Tablet Take 5 mg by mouth as needed for Muscle spasms. Active hydroCHLOROthia zide (HYDRODIURIL) 25 mg Oral Tablet Take 25 mg by mouth daily. Active Active Problems Problem Noted Date Diagnosed Date Overactive bladder 10/31/2021 Overview (10/31/2021): Added automatically from request for surgery [id number] Ingrowing nail 08/11/2021 Unspecified venous (peripheral) insufficiency Open wound of knee, leg (exc ept thigh), and ankle, complicated 2012 Ulcer of calf 10/21/2012 Dehiscence of closure of skin 10/21/2012 Surgical History Surgery Date Site/Laterality Comments BUNIONECTOMY FOOT SURGERY hammer toe HEMORRHOID SURGERY CYSTOSCOPY 10/11/2017 N/A CYSTOSCOPY BOTOX INJECTION ; Surgeon: Carlos Smith MD; Location: [facility]; Service: Urology CYSTOSCOPY 11/13/2021 N/A CYSTOSCOPY BOTOX INJECTION; Surgeon: Jabier Salas MD; Location: [facility]; Service: Urology Medical History Medical History Date Comments Aneurysm Reflux Swelling Cerebral hemorrhage (HCC) 1994 Post-operative nausea and vomiting Asthma Hypertension Heartburn Glaucoma Arthritis Bladder problem Family History Medical History Relation Name Comments Cancer Father Cancer Mother Anesth Problems Neg Hx Relation Name Status Comments Father Mother Social History Tobacco Use Types Packs/Day Years Used Date Smoking Tobacco: Former Smokeless Tobacco: Never Tobacco Cessation:Counseling Given: No Alcohol Use Standard Drinks/Week Comments No 0 (1 standard drink = 0.6 oz pur e alcohol) Sexually Active Control Partners Comments Yes Post-menopausal Male Comments No Sex and Gender Information Value Date Recorded Sex Assigned at Not on file Legal Sex Female 3:49 PM EDT Gender Identity Not on file Sexual Orientation Not on file Obstetrics History Para Term AB IAB SAB Ectopic Multiple Livin g Live Births 1 1 Date Outcome GA Total Labor Labor/2nd/3rd Weight Sex Type Anes PTL Adri A1 A5 Name Clin AB Last Filed Vital Signs Vital Sign Reading Time Taken Comments Blood Pressure 109/54 11/13/2021 3:17 PM EST Pulse 67 11/13/2021 3:17 PM EST Temperature 36 C (96.8 F) 12/31/2023 1:25 PM EDT Respiratory Rate 16 11/13/2021 3:17 PM EST Oxygen Saturation 95% 11/13/2021 3:17 PM EST Inhaled Oxygen Concentration - - Weight 91.7 kg (202 lb 3.2 oz) 12/31/2023 1:25 P M EDT Height 167.6 cm (5' 6 ) 12/31/2023 1:25 PM EDT Body Mass Index 32.64 12/31/2023 1:25 PM EDT Plan of Treatment Health Maintenance Due Date Last Done Comments Wellness Exam Medicare 11/15/1958 Hepatitis C Screening 11/15/1973 Breast Cancer Screening 1995 Cologuard 11/15/2000 Colon Cancer Screening 11/15/2000 Colonoscopy 11/15/2000 FIT 11/15/2000 Sigmoidoscopy 11/15/2000 Virtual Colonography 11/15/2000 Bone Density Screening 11/15/2020 Pneumococcal Vaccine 50+ (2 of 2 - PCV20 or PCV21) 01/11/2023 01/11/2022, 06/16/2021 COVID-19 Vaccine ( season) 2024 06/22/2022, 12/31/2021, 07/17/2021 Influenza Vaccine (Season Ended) 2025 06/22/2022, 06/16/2021, 08/16/2020, Additional history exists DTaP/TDaP/Td (5 - Td or Tdap) 01/04/2032 01/03/2022, 10/30/2016, 03/08/2012, Additional history exists Zoster Completed 06/16/2021, 03/14, 12/01/2017 Meningococcal B Vaccine Aged Out 03/09/2022, 01/11 No longer eligible based on patient's age to complete this topic Hepatitis B Vaccine Aged Out No longe r eligible based on patient's age to complete this topic Medical Devices Implanted Type Area Terrazzo Layer Helper Device Identifier Shelf Expiration Date Model / Serial / Lot Toes Metal Ioc Insurance [place]ICAID [place] [employer] MEDICARE HMO MR [place] O Care Teams Preschool Assistant Relationship Specialty Start Date End Date Vivek Mederos MD [address] [facility] [address] [place] [address] PCP - General Family Medicine 08/04/16 Dewey Wade DPM [address] [place] [address] [address] [place] [address] Recreation Technician-Surgery, Foot & Ankle 06/26/14
--- OUTSIDE RECORDS SUMMARY | 2025-03-12 11:42 | XMS_ITS | Encounter Summary ---
Author Organization Healthcare Address [address] [place] [address] Care Team Providers Care Pilot Supervisor Name Role Phone Vivek Mederos MD Primary Care Provider [phone] Genevieve Santos Unavailable [phone] Reason for Visit * Reason Comments Med Refill Encounter Details Date Type Department Care Team (Late st Contact Info) Description 04/12/2023 [facility]ill [facility] [place] [facility] [address] [place] [address] Cuca Das, PA [address] [place] [address] Social History Tobacco Use Types [...] drink first t nolvia in the morning ([employer]) to steady your nerves or to get [...] Description 03/14/2025 11:00 AM EDT Office Visit [facility] [address] [place] [address] Jane Rojas MD [address] [place] [address] 07/03/2025 1:10 PM EDT [facility] [place] [facility] [address] [place] [address] Gayle Aaron APRN [address] [place] [address] documented as of this encounter Visit Diagnoses Not on filedocumented in this encounter Additional Health Concerns Assessment Noted Time A fall risk assessment has been complete d for the patient 03/23/2023 3:02 PM EDT A Body Mass Index follow-up plan has been documented for the patient 03/24/2023 7:31 AM EDT documented as of this encounter Care Teams Pilot Supervisor Relationship Specialty Start Date End Date Vivek Mederos MD [address] [place] [address] PCP - General 05/15/21 Genevieve Santos PA [address] [place] [address] Physician Family Helper Neurology 05/15/21 documented as of this encounter
--- OUTSIDE RECORDS SUMMARY | 2025-03-12 11:42 | XMS_ITS | Clinical Summary ---
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 / Screw 3.5mm R3con Locking Plate 26mm - [id number] Implanted:Qty: 1 on 01/15/2022 by Julian Gallego MD at [place] [address] Inc-[id number] / / Archplate Medial Clmn Prox 1.5mm R Lg - [id number] Implanted:Qty: 1 on 01/15/2022 by Julian Gallego MD at [place] [address] Inc-[id number] / / Screw 2.7mm R3con Locking Plate 30mm - [id number] Implanted:Qty: 1 on 01/15/2022 by Julian Gallego MD at [place] [address] Inc-[id number] / / Screw 2.7mm R3con Locking Plate 26mm - [id number] Implanted:Qty: 1 on 01/15/2022 by Julian Gallego MD at [facility] Right: Foot [place] [employer] Inc-[id number] / / Screw 2.7mm R3con Nonlocking Plate 36mm - [id number] Implanted:Qty: 1 on 01/15/2022 by Julian Gallego MD at [facility] Right: Foot [place] [employer] Inc-[id number] / / Screw 3.5mm R3con Nonlocking Plate 28mm - [id number] Implanted:Qty: 1 on 01/15/2022 by Julian Gallego MD at [facility] Right: Foot [employer] [employer] Inc-[id number] / / Screw 3.5mm R3con Locking Plate 24mm - [id number] Implanted:Qty: 1 on 01/15/2022 by Julian Gallego MD at [facility] Right: Foot [employer] Inc-[id number] / / [place] Wire Threaded 1.6 X 80mm Implanted:Qty: 4 on 01/15/2022 by Julian Gallego MD at [facility] [employer] Inc-[id number] / / Putty Dbx 10cc - [id number] Implanted:Qty: 1 on 03/04/2022 by Julian Gallego MD at [facility] Right: Femur [employer]-[id number] 05/23/2023 [id number] / / [id number] Chip Bone 40cc - [id number] - [id number] Implanted:Qty: 1 on 03/04/2022 by Julian Gallego MD at [facility] Right: Femur [facility]-[id number] 11/20/2026 PCAN1/2 / [id number] / [id number] Chg Kit Prep Im Enhance Bone Repl - [id number] Implanted:Qty: 1 on 01/06/2023 by Reese Galindo MD at [facility] Right: Knee [employer] Inc-[id number] / / NOT PROVIDED Tibial Baseplate Size 4 Component - [id number] Implanted:Qty: 1 on 01/06/2023 by Reese Galindo MD at [facility] Right: Knee [employer] Inc-[id number] 12/31/2029 [id number] / / [id number] Explanted Type Area Hosiery Bagger Device Identifier Shelf Expiration Date Model / Serial / Lot Screw 3.5mm Cortex Selftap 70mm - S. - [id number] Explanted:Qty: 1 on 03/04/2022 by Julian Gallego MD at [facility] Screw Right: Femur Synthes [facility]-[id number] 03/04/2023 204.870 / . / Procedures Procedure Name Priority Date/Time Associated Diagnosis Comments HEPATITIS C ANTIBODY - ED W/REFLEX TO HCV QUANT PCR STAT 01/04/2022 9:31 AM EDT from Last 3 Months or Most Recently Relevant to Health Maintenance Results * [place] Hepatitis C Antibody (01/04/2022 9:31 AM EDT) Hepatitis C Antibody Negative Negative 01/04/2022 10:53 AM EDT [facility] Blood Arterial blood specimen / Unknown Venipuncture / Unknown 01/04/2022 9:31 AM EDT 01/04/2022 9:39 AM EDT us Barbara Espinosa MD LAB BLOOD ORDERABLES Final Res ult Performing Organization Address City/State/[facility] Co de Phone Number HEALTHCARE LAB [address] [place] [address] from Last 3 Months or Most Recently Relevant to Health Maintenance [place] Advance Directives * Full Code (Latest Code Status on File) Date Activated Date Inactivated Comments 01/06/2023 2:11 PM 01/09/2023 4:11 PM Question Answer Comments Patient has decision-making capacity? Yes * Full Code Date Activated Date Inactivated Comments 03/04/2022 5:45 PM 03/31/2022 5:24 PM Question Answer Comments Patient has decision-making capacity? Yes * Full Code Date Activated Date Inactivated Comments 01/03/2022 9:50 PM 03/04/2022 5:45 PM Question Answer Comments Patient has decision-making capacity? Yes Care Teams Diamond Cleaner Relationship Specialty Start Date End Date Vivek Mederos MD [address] [place] [address] PCP - General 05/15/21 Genevieve Santos PA [address] [facility] [address] [place] [address] Physician Mop Worker Neurology 05/15/21
--- OUTSIDE RECORDS SUMMARY | 2025-03-12 11:42 | XMS_ITS | Encounter Summary ---
Author Organization [facility] Address [address] [place] [address] Care Team Providers Care Inventory Assistant Name Role Phone Vivek Mederos MD Primary Care Provider [phone] Genevieve Santos Unavailable [phone] Reason for Visit * Reason Comments Med Refill Encounter Details Date Type Department Care Team (Late st Contact Info) Description [facility] [place] [facility] [address] [place] [address] Gayle Aaron, GEAR REPAIR SUPERVISOR [address] [place] [address] Social History Tobacco Use Types Packs/Day Years Used Date Smoking Tobacco: Former Smokeless Tobacco: Never Alcohol Use Standard Drinks/Week Comments Not Currently 0 (1 standard drink = 0.6 oz pure alcohol) Alcoholic Drinks/day: History of alcohol abuse PHQ-2 Answer Date Recorded Patient Health Questionnaire-2 Score 3 06/14/2024 PHQ-9 Answer Date Recorded Patient Health Questionnaire-9 [...] drink first t nolvia in the morning (EYE-PATIENT SUPPORT REPRESENTATIVE) to steady your nerves or to get [...] encounter Miscellaneous Notes * Telephone Encounter - Gayle Aaron APRN - 08/16/2024 3:47 PM EST Duplicate request. documented in this encounter Plan of Treatment Upcoming Encounters Date Type Department Care Team (Late st Contact Info) Description 03/14/2025 11:00 AM EDT Office Visit [facility] [address] [place] [address] Jane Rojas MD [address] [place] [address] 07/03/2025 1:10 PM EDT Office Visit [place] [facility] [place] [facility] [address] [place] [address] Gayle Aaron APRN [address] [place] [address] documented as of this encounter Visit Diagnoses Not on filedocumented in this encounter Additional Health Concerns Assessment Noted Time PHQ-9 Depression Total Score: 7 06/14/20 10:43 AM EDT A fall risk assessment has been complete d for the patient 07/05/2024 8:34 AM EDT A Body Mass Index follow-up plan has been documented for the patient 07/05/2024 11:26 AM EDT documented as of this encounter Care Teams Inventory Assistant Relationship Specialty Start Date End Date Vivke Mederos MD [address] [place] [address] PCP - General 05/15/21 Genevieve Santos PA [address] [facility] [address] [place] [address] Physician Behaviorist Neurology 05/15/21 documented as of this encounter
--- OUTSIDE RECORDS SUMMARY | 2025-03-12 11:42 | XMS_ITS | Encounter Summary ---
Author Organization [facility] Address [address] [place] [address] Care Team Providers Care Wireless Telegrapher Name Role Phone Vivek Mederos MD Primary Care Provider [phone] Genevieve Santos Unavailable [phone] Encounter Details Date Type Department Care Team (Late Contact Info) Description 01/05/2022 Lab Requisition [facility] [address] [place] [address] Sanjeev Rod MD [address] [place] [address] Encounter for general adult medical examination without abnormal findings Social History Tobacco Use Types Packs/Day Years Used Date Smoking Tobacco: Former Smokeless Tobacco: Never Alcohol Use Standard Drinks/Week Comments Not Currently 0 (1 standard drink = 0.6 oz pure alcohol) Alcoholic Drinks/day: History of alcohol abuse Comments Unknown Sex and Gender Information Value Date Recorded Sex Assigned at Female 07/30/2022 6:53 AM EST Legal Sex Female 7:29 PM EDT Gender Identity Female 07/30/2022 6:53 AM EST Sexual Orientation Not on file COVID-19 Exposure Response Date Recorded In the last 10 days, have yo u been in contact with someone who was confirmed or suspected to have Coronavirus/COVID-19? No / Unsure 01/04/2022 3:35 AM EDT documented as of this encounter Plan of Treatment Upcoming Encounters Date Type Department Care Team (Late st Contact Info) Description 03/14/2025 11:00 AM EDT Office Visit [facility] [address] [place] [address] Jane Rojas MD [address] [place] [address] 07/03/2025 1:10 PM EDT [facility] [place] - Memory [address] [place] [address] Gayle Aaron APRN [address] [place] [address] documented as of this encounter Procedures Procedure Name Priority Date/Time Associated Diagnosis Comments MULTI DRUG RESISTANCE TEST Routine 01/05/2022 7:00 PM EDT Encounter for general adult medical examination without abnormal findings documented in this encounter Results * Multi Drug Resistance Test (01/05/2022 7:00 PM EDT) Culture No growth at day 2 01/07/2022 9:35 AM EDT [facility] Swab (Nares and Amina Rectal) 01/05/2022 7:00 PM EDT 01/05/2022 9:16 PM EDT Sanjeev Newsome MD LAB MICROBIOLOGY - GENERAL ORDERABLES Final Result [facility] [address] [place] [address] documented in this encounter Visit Diagnoses Diagnosis Encounter for general adult medical examination without abnormal findings documented in this encounter Additional Health Concerns Assessment Noted Time A fall risk assessment has been complete d for the patient 05/15/2021 4:08 PM EDT documented as of this encounter Care Teams Wireless Telegrapher Relationship Specialty Start Date End Date Vivek Mederos MD [address] [place] [address] PCP - General 05/15/21 Genevieve Santos PA [address] [facility] [address] [place] [address] Physician Ingot Header Neurology 05/15/21 documented as of this encounter
--- OUTSIDE RECORDS SUMMARY | 2025-03-12 11:42 | XMS_ITS | Encounter Summary ---
Author Organization [facility] Address [address] [place] [address] Care Team Providers Care Inspector Rubber Stamp Die Name Role Phone Vivek Mederos MD Primary Care Provider [phone] Genevieve Santos Unavailable [phone] Reason for Visit * Reason Onset Date Comments HCN - Patient Message 07/14/2022 Results call back Encounter Details Date Type Department Care Team (Late st Contact Info) Description 07/14/2022 Telephone [place] [facility] [address] [place] [address] Genevieve Santos PA [address] [place] [address] HCN - Patient Message (Results 07/20 call back ) Social History Tobacco Use Types Packs/Day Years [...] suspected to have Coronavirus/COVID-19? No / Unsure 06/30/2022 10:45 AM EDT documented as of this encounter Miscellaneous Notes * Telephone Encounter - Genevieve Santos PA - 07/21/2022 2:40 PM EST I spoke to her. There is concern for NPH but she is not walking so may be difficult to eval. 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 I would like to get her in to NPH clinic but may need to speak with Dr. Howe first. * Telephone Encounter - Genevieve Santos PA - 07/21/2022 11:10 AM EST Called again and left my cell. * Telephone Encounter - Marlene Betancur - 07/21/2022 10:23 AM EST Patient Phone Message Reason for Call: Patient is returning Genevieve's call again regarding matter below please advise. Best contact number and optimal time of day to reach caller: [phone] Note: Please do not reply to this message. Follow-up communication and further actions as a result of this message need to be communicated with the patient directly, if the patient is not active onMyChart. If the patient is active on MyChart, they will receive notification of the communication/outcome via Fancloudhart. * Telephone Encounter - Genevieve Santos PA - 07/20/2022 2:04 PM EST Called again * Telephone Encounter - Hoda Osorio - 07/20/2022 12:16 PM EST Patient Phone Message Reason for Call: Missed a call , please try again Verified number Best contact number and optimal time of day to reach caller: [phone] Note: Please do not reply to this message. Follow-up communication and further actions as a result of this message need to be communicated with the patient directly, if the patient is not active onMyChart. If the patient is active on MyChart, they will receive notification of the communication/outcome via MyChart. * Telephone Encounter - Genevieve Santos PA - 07/20/2022 9:52 AM EST Left another VM * Telephone Encounter - Marlene Betancur - 07/17/2022 1:08 PM EDT Patient Phone Message Reason for Call: Patient is returning Genevieve 's call regarding matter below. Please advise. Best contact number and optimal time of day to reach caller: Note: Please do not reply to this message. Follow-up communication and further actions as a result of this message need to be communicated with the patient directly, if the patient is not active onMyChart. If the patient is active on MyChart, they will receive notification of the communication/outcome via MyChart. * Telephone Encounter - Genevieve Santos PA - 07/17/2022 10:03 AM EDT Called and left VM to call me back * Telephone Encounter - Genevieve Santos PA - 07/15/2022 8:43 AM EDT I would like to view with Dr. Gay tomorrow and then I will call her. * Telephone Encounter - Hoda Osorio - 07/14/2022 3:23 PM EDT Patient Phone Message Reason for Call: MRI Results Best contact number and optimal time of day to reach caller: [phone] Note: Please do not reply to this message. Follow-up communication and further actions as a result of this message need to be communicated with the patient directly, if the patient is not active onMyChart. If the patient is active on MyChart, they will receive notification of the communication/outcome via Fancloudhart. documented in this encounter Plan of Treatment Upcoming Encounters Date Type Department Care Team (Late st Contact Info) Description 03/14/2025 11:00 AM EDT Office Visit [facility] [address] [place] [address] Jane Rojas MD [address] [place] [address] 07/03/2025 1:10 PM EDT [facility] [place] [facility] [address] [place] [address] Gayle Aaron APRN [address] [place] [address] documented as of this encounter Visit Diagnoses Not on filedocumented in this encounter Additional Health Concerns Assessment Noted Time A fall risk assessment has been complete d for the patient 06/30/2022 11:00 AM EDT documented as of this encounter Care Teams Inspector Rubber Stamp Die Relationship Specialty Start Date End Date Vivek Mederos MD [address] [place] [address] PCP - General 05/15/21 Genevieve Santos PA [address] [place] [address] Physician Machine Packaging Technician Neurology 05/15/21 documented as of this encounter
== END 2025-03-10 23:59 | disposition home or self-care (01) ==
LOC: LAB.DROPOF 03-12 11:35
PROVIDERS: PCP Family Medicine; Visit Provider Nurse Practitioner Family
DX: N39.0 Urinary tract infection, site not specified (principal)
CPT/HCPCS: 87086; 87088; 87186

== ENCOUNTER 2025-04-12 16:09 | Outpatient (RCR) | payer MEDICARE, MEDICAID, SELFPAY ==
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
== END 2025-04-12 23:59 | disposition home or self-care (01) ==
LOC: PT 16:09
PROVIDERS: PCP Family Medicine; Visit Provider Family Medicine
DX: R26.89 Other abnormalities of gait and mobility (principal)
CPT/HCPCS: 97162

== ENCOUNTER 2025-05-01 09:28 | Outpatient (CLI) | payer MEDICARE, MEDICAID, SELFPAY ==
--- OUTSIDE RECORDS SUMMARY | 2025-03-15 11:00 | XMS_ITS | Encounter Summary ---
Author Organization [facility] Address [address] [place] [address] Care Team Providers Care Toy Assembly Supervisor Name Role Phone Vivek Mederos MD Primary Care Provider [phone] Genevieve Santos Unavailable [phone] Reason for Visit * Reason Comments Dental Problem Encounter Details Date Type Department Care Team (Late st Contact Info) Description 03/15/2025 11:00 AM EDT Office [facility] General Dentistry [address] [facility] [address] [place] [address] Brent Lee, DMD [address] [place] [address] Closed fracture of tooth, initial encounter (Primary Dx) Social History Tobacco Use Types Packs/Day Years [...] drink first t nolvia in the morning (EYE-ETL ARCHITECT) to steady your nerves or to get [...] on file documented as of this encounter Last Filed Vital Signs Vital Sign Reading Time Taken Comments Blood Pressure 138/77 03/15/2025 11:09 AM EDT Pulse 84 03/15/2025 11:09 AM EDT Temperature - - Respiratory Rate - - Oxygen Saturation - - Inhaled Oxygen Concentration - - Weight - - Height - - Body Mass Index - - documented in this encounter Miscellaneous Notes * Progress Notes - Brent Lee DMD - 03/15/2025 11:00 AM EDT Urgent Tx Need Pt chief complaint= broken tooth upper left/no pain Visit Vitals BP 138/77 Pulse 84 OB Status Postmenopausal Smoking Status Former desktop support engineer attempted to contact pt by phone before appt to let her know we do not accept her insurance. They were unable to reach her by phone before appt. Clinically: #13 tooth is entirely built up with resin and pins. Some resin missing on buccal with decay in that area. Also decay under lingual of resin Advised pt that restoring this tooth would require RCT/ [facility]/[place], but it would have a poor senior care prognosis. Alternative would be ext and implant. Pt wants to talk to her insurance to see if she can find an in network dentist before we refer her for Tx documented in this encounter Plan of Treatment Upcoming Encounters Date Type Department Care Team (Late st Contact Info) Description 07/03/2025 1:10 PM EDT Office Visit [place] [facility] - Memory [address] [place] [address] Gayle Aaron, STORAGE FACILITY RENTAL CLERK [address] [place] [address] 10/03/2025 1:00 PM EST Procedure Visit [facility] [address] [place] [address] Jane Rojas MD [address] [place] [address] Scheduled Orders Name Type Priority Associated Diagnoses Orde r Schedule 13 13 EXTRACTION, ERUPTED TOOTH OR EXPOSED ROOT (ELEVATION AND/OR FORCEPS REMOVAL) Dental Routine 1 Occurrences s tarting 03/15/2025 documented as of this encounter Procedures Procedure Name Priority Date/Time Associated Diagnosis Comments 12 INTRAORAL - PERIAPICAL FIRST RADIOGRAPHIC IMAGE Routine 03/15/2025 11:00 AM EDT Closed fracture of tooth, initial encounter LIMITED ORAL EVALUATION - PROBLEM FOCUSED Routine 03/15/2025 11:00 AM EDT Closed fracture of tooth, initial encounter 13 PIN RETENTION - PER TOOTH, IN ADDITION TO PENTECOSTALISM Routine 03/15/2025 12:00 AM EDT 13 MODBB(V)LL(V) COMPOSITE FILLING Routine 03/15/2025 12:00 AM EDT 12 PFM CROWN Routine 03/15/2025 12:00 AM EDT 14 PFM CROWN Routine 03/15/2025 12:00 AM EDT documented in this encounter Visit Diagnoses Diagnosis Closed fracture of tooth, initial encounter- Primary documented in this encounter Additional Health Concerns Assessment Noted Time PHQ-9 Depression Total Score: 7 06/14/20 24 10:43 AM EDT A fall risk assessment has been complete d for the patient 08/09/2024 12:57 PM EST A Body Mass Index follow-up plan has been documented for the patient 03/15/2025 4:13 PM EDT documented as of this encounter Care Teams Toy Assembly Supervisor Relationship Specialty Start Date End Date Vivek Mederos MD [address] [place] [address] PCP - General 05/15/21 Genevieve Santos PA [address] [facility] [address] [place] [address] Physician Control System Computer Scientist Neurology 05/15/21 documented as of this encounter
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
--- OUTSIDE RECORDS SUMMARY | 2025-04-09 06:25 | XMS_ITS ---
Author Organization [facility] Address [address] [facility] [address] [facility] [address] [place] [id number] Care Team Providers Care Regional Account Executive Name Role Phone Susana Mederos Primary Care Provider REASON FOR VISIT due dexa Encounters Encounter Location Date Provider Diagnosis [facility] [address] [facility] [address] [facility] [address] [place] [id number] 04/09/2025 Susana Mederos Screening for osteoporosis Z13.820 Assessments Encounter Date Diagnosis (ICD Code) Assessment Notes Treatment Notes Treatment Clinical Notes Section Notes 04/09/2025 Screening for osteoporosis (ICD-10 - Z13.820) Plan Of Treatment Pending Test Test Name Order Date Bone density 04/09/2025 Next Appt Details Provider Name:Susana Ricks er, 07/19/2025 02:15:00 PM, [address] [facility] [address] [facility], [address], [place], [id number], Progress Notes * Bonnie ALDANAshelbyDOB: (69 yo F)Acc No.[id number]:04/09/2025 Patient: Stephani PUCKETT :1955 A ge:69 Y S ex:Female Address:[facility] [address] [place], [address] Subjective: * Chief Complaints: * D ue dexa * Medical History: * Surgical History: * Hospitalization/Major Diagno stic Procedure: * Medications: Objective: * Vitals: * Physical Examination: Assessment: * Assessment: 1. S creening for osteoporosis - Z13.820 (Primary) Plan: * Treatment: * Procedure Codes: * true * Date: Generated for Mag eckert/Marianna/Eileen on: 0 05/01/2025 09:38 AM EDT
--- OUTSIDE RECORDS SUMMARY | 2025-04-16 09:00 | XMS_ITS ---
Author Organization [facility] Address [address] [place] [id number] Care Team Providers Care Principal Clerk Name Role Phone Susana Mederos Primary Care Provider [phone] Allergies Allergen (clinical drug ingredient) Drug/Non Drug Allergy documented on EMR Reaction Allergy Type Onset Date Status Neosporin Unknown Drug Allergy Active Polysporin rash Drug Allergy Active Substance with penicillin structure and antibacterial mechanism of action (substance) Penicillins Unknown Drug Allergy Active Results Component Value Reference Range Notes P-Comprehensive Metabolic Pa baron (CMP) Reviewed date:04/17/2025 01:56:50 PM Interpretation:Normal Performing Lab: Notes/Report: Test performed by [facility] [facility] [facility] , [address], [place] [address] Blayne Miller MD, Chief Minister CLIA: [id number] Sodium 144 135-145 mmol/L Potassium 4.4 3.5-5.3 mmol/L Chloride 107 97-108 mmol/L CO2 26 20-32 mmol/L Glucose 93 65-99 mg/dL BUN 17 8-23 mg/dL Creatinine 0.60 0.50-1.00 mg/dL Calcium 9.6 8.6-10.4 mg/dL eGFR by Creatinine 97 >59 mL/min/1.73m2 Protein 6.5 6.0-8.3 g/dL Albumin 4.3 3.5-5.3 g/dL Alkaline Phosphatase 89 35-121 IU/L ALT (SGPT) 10 <5-47 IU/L AST (SGOT) 9 <5-40 IU/L Bilirubin, Total 0.3 <0.2-1.2 mg/dL A/G Ratio 2.0 1.1-2.5 REASON FOR VISIT follow up Medications Medication SIG (Take, Route, Frequency, Duration) Notes Start Date End Date Status Linzess 72 MCG TAKE 1 CAPSULE BY MOUTH ONCE DAILY; Duration: 30 Active Cyclobenzaprine HCl 5 MG 1 tablet Orally two times a day as needed; Duration: 15 days Active Ondansetron 4 MG DISSOLVE 1 TABLET BY MOUTH 3 TIMES A DAY NEEDED FOR NAUSEA AND VOMITING; Duration: 7 Not-Taking methylPREDNISolone 4 MG as directed Orally 025 Active Myrbetriq 50 MG 1 tablet Orally Once a day; Duration: 30 days Active DULoxetine HCl 60 MG 1 capsule Orally Once a day; Duration: 30 days 03/20/2025 Active buPROPion HCl ER (XL) 300 MG 1 tablet in the morning Orally Once a day; Duration: 90 days Active Lisinopril 5 MG 1 tab(s) orally once a day; Duration: 90 days Active Temazepam 15 MG 1 cap(s) orally at bedtime as needed 10/23/2024 Active Albuterol Sulfate HFA 108 (90 Base) MCG/ACT 1 puff as needed Inhalation every 4 hrs, prn 09/29/2024 Active Donepezil HCl 10 MG TAKE 1 TABLET BY MOUTH ONCE DAILY; Duration: 90 Active Omeprazole 20 MG 1 cap(s) orally once a day; Duration: 90 days Active traMADol HCl 50 MG 1 tablet as needed Orally Once a day ass needed 10/23/2024 Active Aspirin 81 MG 1 tablet Orally every other day; Duration: 30 day(s) Active Divalproex Sodium 500 MG 1 tablet Orally At Bed Time; Duration: 90 days 04/23/2023 Active Divalproex Sodium ER 250 MG 1 tab(s) ora lly once a day in the morning; Duration: 90 days Active Levocetirizine Dihydrochloride 5 MG 1 tab(s) orally once a day (in the evening) Active Acetaminophen 500 MG 2 cap(s) orally every 8 hours Active Problems Problem Type SNOMED Code ICD Code Onset Dates Problem Status W/U Status Risk Notes Problem Neck pain (M54.2) Active confirmed Vital Signs Blood pressure systolic 144 mm Hg 04/16/20 25 Blood pressure diastolic 82 mm Hg 025 Heart Rate 89 /min 04/16/2025 Height 65 in 04/16/2025 Weight 202.8 lbs 04/16/2025 BMI 33.74 kg/m2 04/16/2025 Encounters Encounter Location Date Provider Diagnosis [facility] [address] [facility] [address] [place] [id number] 04/16/2025 Susana Mederos Leg pain, bilateral M79.604 ; Other chronic pain G89.29 ; Degeneration of lumbosacral intervertebral disc M51.37 ; Osteoporosis M81.0 ; Peripheral vascular insufficiency I73.9 ; Trochanteric bursitis, left hip M70.62 ; Neck pain M54.2 ; Essential hypertension I10 and Chronic constipation K59.09 Assessments Encounter Date Diagnosis (ICD Code) Assessment Notes Treatment Notes Treatment Clinical Notes Section Notes 04/16/2025 Leg pain, bilateral (ICD-10 - M79.604) 04/16/2025 Other chronic pain (ICD-10 - G89.29) 04/16/2025 Degeneration of lumbosacral intervertebral disc (ICD-10 - M51.37) 04/16/2025 Osteoporosis (ICD-10 - M81.0) 04/16/2025 Peripheral vascular insufficiency (ICD-10 - I73.9) 04/16/2025 Trochanteric bursitis, left hip (ICD-10 - M70.62) 04/16/2025 Neck pain (ICD-10 - M54.2) 04/16/2025 Essential hypertension (ICD-10 - I10) 04/16/2025 Chronic constipation (ICD-10 - K59.09) Plan Of Treatment Medication Medication Name Sig Start Date Stop Date Notes Linzess 72 MCG TAKE 1 CAPSULE BY [facility] ONCE DAILY; Duration: 30 methylPREDNISolone 4 MG as directed Orally 04/16/2025 Next Appt Details Follow Up: 2 M, Reason: Provider Name:Susana Ricks er, 07/19/2025 02:15:00 PM, [address] [facility], [address], [place], [id number], Progress Notes * Stephani ALDANADOB: 6 (69 yo F)Acc No.[id number]:04/16/2025 Progress Notes Patient: Azalea Stephani ANN Provider: Susana Mederos M.D. :1955 A ge:69 Y S ex:Female Date:04/16/2025 Address:[address] [place], [id number] Subjective: * Chief Complaints: * 1 . Follow up. * HPI: P sychology: The patient is here for a follow up on Depression with anxiety. Pt states she saw Dr Patten and he changed the Venlafaxine to Duloxetine. Pt states she is doing about the same. Pt states she has not been on the duloxetine lone enough to tell any differnece yet. 69 year old female presents with c/o depression. * ROS: D ERMATOLOGY: no R bridger. [...] stic Procedure: C erebral Hemorrhage 1994, [facility] 10/[facility], Lt Knee Pain- [facility] 12/30/2016. * Family History: F ather: , [...] morning Orally Once a day , Taking DULoxetine HCl 60 MG Capsule Delayed Release Particles 1 capsule Orally Once a day , Taking Myrbetriq 50 MG Tablet Extended Release 24 Hour 1 tablet Orally Once a day , Taking Cyclobenzaprine HCl 5 MG Tablet 1 tablet Orally two times a day as needed , Not-Taking Ondansetron 4 MG Tablet Disintegrating DISSOLVE 1 TABLET BY MOUTH 3 TIMES A DAY NEEDED FOR NAUSEA AND VOMITING , Discontinued Cipro 500 MG Tablet 1 tablet Orally twice a day , Discontinued Diflucan 150 MG Tablet 1 tablet Orally once , Medication List reviewed and reconciled with the patient * Allergies: P enicillins, Neosporin, Polysporin: rash. Objective: * Vitals: W t: 202.8, Temp: 98.1, BP: 144/82, HR: 89, Nurse: RISHI, Ht: 65, BMI:33.74. * Examination: G eneral Examination: General Appearance: [...] tenderness. E xtremities: t race leg edema. TENDER AT LEFT TROCHANTERIC BURSA. Assessment: * Assessment: 1. L eg pain, bilateral - M79.604 (Primary) 2 . O ther chronic pain - G89.29 3 . D egeneration of lumbosacral intervertebral disc - M51.37 4 . O steoporosis - M81.0 5 . P eripheral vascular insufficiency - I73.9 6. T rochanteric bursitis, left hip - M70.62 7 . N dann pain - M54.2 8 . E ssential hypertension - I10 9 . C hronic constipation - K59.09 Plan: * Treatment: 2. E ssential hypertension L AB: P-Comprehensive Metabolic Panel (CMP) (Collection Date & Time - 04/16/2025 01:00 PM) N ormal Value Reference Range A /G Ratio 2.0 1.1-2.5 - * A lbumin 4.3 3.5-5.3 - g/dL * A lkaline Phosphatase 89 35-121 - IU/L * A LT (SGPT) 10 <5-47 - IU/L * A ST (SGOT) 9 <5-40 - IU/L * B ilirubin, Total 0.3 <0.2-1.2 - mg/dL * B UN 17 8-23 - mg/dL * C alcium 9.6 8.6-10.4 - mg/dL * C hloride 107 97-108 - mmol/L * C O2 26 20-32 - mmol/L * C reatinine 0.60 0.50-1.00 - mg/dL * G lucose 93 65-99 - mg/dL * P otassium 4.4 3.5-5.3 - mmol/L * S odium 144 135-145 - mmol/L * P rotein 6.5 6.0-8.3 - g/dL * e GFR by Creatinine 97 >59 - mL/min/1.73m2 * Yadi Meyer 04/17/2025 01: 56:42 PM EDT > Left voicemail informing of normal lab results 3.?Chronic constipation? Refill Linzess Capsule, 72 MCG, TAKE 1 CAPSULE BY MOUTH ONCE DAILY, 30, 90 Capsule, Refills 1.?? * Procedure Codes: G 2211 Complex e/m visit add on, 1036F TOBACCO NON-USER, G8950 PREHTN/HTN BP DOC INDCD F/U DOC, G8753 MOST RECENT SYSTOLIC BP >= 140MM HG, G8754 MOST RECENT DIASTOLIC BP < 90MM HG * Follow Up: 2 M * Images: Billing Information: * Visit Code: 60196 Office Visit, Est Pt., Level 4. * Procedure Codes: G2211 Complex e/m visit add on. 1036F TOBACCO NON-USER. G8950 PREHTN/HTN BP DOC INDCD F/U DOC. G8753 MOST RECENT SYSTOLIC BP >= 140MM HG. G8754 MOST RECENT DIASTOLIC BP < 90MM HG. * Electronic signature of Susana Mederso MD on 05/01/2025 at 09:38 AM EDT Sign off status: Pending * Provider: Susana Mederos M.D. Date: 04/16/2025 Generated for Aracelyi ng/Fasunithag/eTransmitting on: 05/01/2025 09:38 AM EDT History and Physical Notes * HPI (History of Present Illness) Category Sub-Category Detail Notes Category Not es Psychology depression Examination Category Sub-Category Detail Notes Category Not es General Examination HEENT: unremarkable Heart: RSR Lungs: clear to auscultatio n Abdomen: soft and nontender, no organomegaly or masses Extremities: trace leg edema. TEN HANS AT LEFT TROCHANTERIC BURSA General Appearance: NAD Skin: normal, no rash Neurologic Exam: No change in exam, u ses a walker Neck: supple, no lymphaden opathy Oral cavity: no lesions, mucosa m oist and WNL, no erythema Peripheral pulses: normal Back: no CVA tenderness Chest: normal shape and exp ansion
--- NOTE | 2025-05-01 09:31 | XR_ITS ---
FINAL REPORT CLINICAL HISTORY: SCREENING COMPARISON: None FINDINGS: Using L1-4, the bone mineral density of the spine is 0.859 g/cm2, corresponding to T-score of -1.7, consistent with osteopenia. Using the left hip, the bone mineral density of the femoral neck is 0.440 g/cm2, corresponding to a T-score of -3.7, consistent with osteoporosis. Using the right hip, the bone mineral density of the femoral neck is 0.560 g/cm2, corresponding to a T-score of -2.6, consistent with osteoporosis. FRAX not reported because some T-score at or below -2.5. NOTE: T-score: Standard deviation compared with peak bone mass of young adult mean. *Following the recommendations of the International Society of Bone densitometry, classification of hip BMD is based on the lower of two T-scores; total hip or femoral neck. IMPRESSION: Diminished bone mineral density consistent with osteopenia in the lumbar spine and osteoporosis in the bilateral hips Reviewed, Interpreted and Dictated by Shaun García MD Transcribed by [employer] Authenticated and [facility]
--- OUTSIDE RECORDS SUMMARY | 2025-05-01 09:38 | XMS_ITS | Encounter Summary ---
Author Organization [facility] Address [address] [place] [address] Care Team Providers Care Funeral Service Apprentice Name Role Phone Vivek Mederos MD Primary Care Provider [phone] Genevieve Santos Unavailable [phone] Reason for Visit * Reason Onset Date Comments 03/10/25 Urine culture 03/12/2025 Encounter Details Date Type Department Care Team (Late st Contact Info) Description 03/12/2025 Telephone [facility] [address] [place] [address] Jane Rojas MD [address] [place] [address] 03/10/25 Urine culture Social History Tobacco Use Types Packs/Day Years [...] drink first t nolvia 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 Thank you. documented in this encounter Plan of Treatment Upcoming Encounters Date Type Department Care Team (Late st Contact Info) Description 07/03/2025 1:10 PM EDT Office Visit [facility] [place] [facility] [address] [place] [id number] Gayle Aaron APRN [address] [place] [address] 10/03/2025 1:00 PM EST Procedure [facility] [address] [place] [address] Jane Rojas MD [address] [place] [address] documented as of this encounter [...] documented as of this encounter Care Teams Funeral Service Apprentice Relationship Specialty Start Date End Date Vivek Mederos MD [address] [place] [address] PCP - General 05/15/21 Genevieve Santos PA [address] [place] [address] Physician Box Hinge And Lock Attacher Neurology 05/15/21 documented as of this encounter
--- OUTSIDE RECORDS SUMMARY | 2025-05-01 09:38 | XMS_ITS | Encounter Summary ---
Author Organization [facility] Address [address] [place] [address] Care Team Providers Care Business Analysis Specialist Name Role Phone Vivek Mederos MD Primary Care Provider [phone] Genevieve Santos Unavailable [phone] Reason for Visit * Reason Onset Date Comments Records Request 03/12/2025 Rcvd Records 03/12/2025 Encounter Details Date Type Department Care Team (Late st Contact Info) Description 03/12/2025 Telephone [facility] [address] [place] [address] Roya Jauregui RN ````````````````````` ````````````````````` ``[facility] - OPERATING ROOM, PAV A Records Request; Rcvd Records Social History Tobacco Use Types Packs/Day Years [...] drink first t nolvia in the 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 * Telephone Encounter - Roya Jauregui RN - 03/12/2025 4:38 PM EDT Stephani Aldana contacted the clinic. She had a urine culture done at [facility] on 03/10/25. Patient stated that she was given cephalexin and that she started taking it on 03/10/25. She is scheduled for botox procedure on Wednesday03/14/25. A request was made for the culture results to be faxedto the clinic. documented in this encounter Plan of Treatment Upcoming Encounters Date Type Department Care Team (Late st Contact Info) Description 07/03/2025 1:10 PM EDT Office Visit [facility] [address] [place] [address] Gayle Aaron APRN [address] [place] [address] 10/03/2025 1:00 PM EST Procedure [facility] [address] [place] [address] Jane Rojas MD [address] [place] [address] documented as of this encounter [...] documented as of this encounter Care Teams Business Analysis Specialist Relationship Specialty Start Date End Date Vivek Mederos MD [address] [place] [address] PCP - General 05/15/21 Genevieve Santos PA [address] [place] [address] Physician Rn Anesthesiology Neurology 05/15/21 documented as of this encounter
--- OUTSIDE RECORDS SUMMARY | 2025-05-01 09:38 | XMS_ITS | Encounter Summary ---
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) to steady your nerves or to get [...] Description 07/03/2025 1:10 PM EDT Office Visit [facility] [place] [facility] [address] [place] [address] Gayle Aaron APRN [address] [place] [address] 10/03/2025 1:00 PM EST Procedure [facility] [address] [place] [address] Jane Rojas MD [address] [place] [address] documented as of this encounter [...] documented as of this encounter Care Teams Printing Film Stripper Relationship Specialty Start Date End Date Vivek Mederos MD [address] [place] [address] PCP - General 05/15/21 Genevieve Santos PA [address] [place] [address] Physician Academic Services Professional Neurology 05/15/21 documented as of this encounter
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
--- OUTSIDE RECORDS SUMMARY | 2025-05-01 09:38 | XMS_ITS | Encounter Summary ---
Author Organization Healthcare Address [address] [place] [address] Care Team Providers Care Courtroom Clerk Name Role Phone Vivek Mederos MD Primary Care Provider [phone] Genevieve Santos Unavailable [phone] Encounter Details Date Type Department Care Team (Latest Contact Info) Description 03/28/2025 Travel Social History Tobacco Use Types Packs/Day [...] drink first t nolvia in the morning (EYE-INDUSTRIAL INSULATOR) to steady your nerves or to get [...] Description 07/03/2025 1:10 PM EDT Office Visit [facility] [place] - [facility] [address] [place] [address] Gayle Aaron APRN [address] [place] [address] 10/03/2025 1:00 PM EST Procedure Visit [facility] [address] [place] [address] Jane Rojas MD [address] [place] [address] documented as of this encounter [...] documented as of this encounter Care Teams Courtroom Clerk Relationship Specialty Start Date End Date Vivek Mederos MD [address] [place] [address] PCP - General 05/15/21 Genevieve Santos PA [address] [place] [address] Physician Obiee Report Developer Neurology 05/15/21 documented as of this encounter
--- OUTSIDE RECORDS SUMMARY | 2025-05-01 09:38 | XMS_ITS | Encounter Summary ---
Author Organization Healthcare Address [address] [place] [address] Care Team Providers Care Cable Armorer Operator Name Role Phone Vivek Mederos MD Primary Care Provider [phone] Genevieve Santos Unavailable [phone] Reason for Visit * Reason Comments Med Refill Encounter Details Date Type Department Care Team (Late st Contact Info) Description 04/12/2023 Refill [facility] [place] [facility] [address] [place] [address] Cuca Das, PA [address] [place] [address] Social History Tobacco Use Types [...] drink first t nolvia in the morning (EYE-BANKING OFFICER) to steady your nerves or to get [...] 07/03/2025 1:10 PM EDT Office Visit [facility] [place] [facility] [address] [place] [address] Gayle Aaron APRN [address] [place] [address] 10/03/2025 1:00 PM EST Procedure Visit [facility] [address] [place] [address] Jane Rojas MD [address] [place] [address] documented as of this encounter Visit Diagnoses Not on filedocumented in this encounter Additional Health Concerns Assessment Noted Time A fall risk assessment has been complete d for the patient 03/23/2023 3:02 PM EDT A Body Mass Index follow-up plan has been documented for the patient 03/24/2023 7:31 AM EDT documented as of this encounter Care Teams Cable Armorer Operator Relationship Specialty Start Date End Date Vivek Mederos MD [address] [place] [address] PCP - General 05/15/21 Genevieve Santos PA [address] [place] [address] Physician Brick And Blocker Aid Labor Neurology 05/15/21 documented as of this encounter
--- OUTSIDE RECORDS SUMMARY | 2025-05-01 09:38 | XMS_ITS | Encounter Summary ---
Author Organization [facility] Address [address] [place] [address] Care Team Providers Care Teaching Aide Name Role Phone Vivek Mederos MD Primary Care Provider [phone] Genevieve Santos Unavailable [phone] Reason for Visit * Reason Comments Med Refill Encounter Details Date Type Department Care Team (Late st Contact Info) Description [facility] [place] [facility] [address] [place] [address] Gayle Aaron, PIN CLEANER [address] [place] [address] Social History Tobacco Use Types [...] drink first t nolvia in the morning (EYE-FORM PRESS OPERATOR) to steady your nerves or to [...] 07/03/2025 1:10 PM EDT Office Visit [facility] [place] - [facility] [address] [place] [id number] Gayle Aaron APRN [address] [place] [address] 10/03/2025 1:00 PM EST Procedure Visit [facility] [address] [place] [address] Jane Rojas MD [address] [place] [address] documented as of this encounter [...] documented as of this encounter Care Teams Teaching Aide Relationship Specialty Start Date End Date Vivek Mederos MD [address] [place] [address] PCP - General 05/15/21 Genevieve Santos PA [address] [place] [phone] Physician Coil Winder Repair Neurology 05/15/21 documented as of this encounter
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
--- OUTSIDE RECORDS SUMMARY | 2025-05-01 09:39 | XMS_ITS | Clinical Summary ---
Author Organization [facility] Address [address] [place] [address] Care Team Providers Care Bowling Pin Refinisher Name Role Phone Vivek Mederos MD Primary Care Provider [phone] Genevieve Santos Unavailable [phone] Allergies Active Allergy Reactions Criticality Noted Date Comments Neomycin-Bacitracin Zn-Polymyx Rash Low 01/01/2023 Neosporin ointment Bacitracin-Polymyxin B Rash,Other - plea se document in the comment field Low 08/23/2024 Benzalkonium Chloride Rash Low 11/09/2012 Latex Itching,Rash Medium 01/04/2022 Nitrofurantoin Rash Low 03/15/2014 Medications Myrbetriq 50 MG tablet Take 1 tablet (50 mg) by mouth every night. Active ondansetron ODT (Zofran-ODT) 4 MG disintegrating tablet Take 1 tablet (4 mg) by mouth every 8 (eight) hours if needed. Active venlafaxine XR (Effoxor-XR) 150 MG 24 hr capsule Take 1 capsule (150 mg) by mouth every night. Active levocetirizine (Xyzal) 5 MG tablet Take 1 tablet (5 mg) by mouth 1 (one) time each day in the evening. Active montelukast (Singulair) 10 MG tablet Take 1 tablet (10 mg) by mouth every night. Active cyclobenzaprine (Flexeril) 5 MG tablet Take 1 tablet (5 mg) by mouth if needed for muscle spasms. Active omeprazole (PriLOSEC) [address] capsule Take 1 capsule (20 mg) by mouth 1 (one) time each day. Active traZODone (Desyrel) 150 MG tablet Take 1 tablet (150 mg) by mouth every night. Active temazepam (Restoril) 15 MG capsule Take 1 capsule (15 mg) by mouth every night. Active acetaminophen (Tylenol) 500 MG tablet Take 2 tablets (1,000 mg total) by mouth every 8 (eight) hours. 100 tablet 023 Active docusate sodium (Colace) 250 MG capsule Take 1 capsule (250 mg total) by mouth 2 (two) times a day. 60 capsule 023 Active Additional Information Patient not taking.Reported on 03/28/2025 gabapentin (Neurontin) 100 MG capsule Take 1 capsule (100 mg total) by mouth 3 (three) times a day. 30 capsule 023 Active Additional Information Patient not taking.Reported on 03/28/2025 traMADol (Ultram) 50 MG tablet Active lisinopril 5 MG tablet Active fluticasone (Flonase) 50 MCG/ACT nasal spray Active Linzess 72 MCG capsule capsule Active albuterol 108 (90 Base) MCG/ACT inhaler Active azelastine (Astelin) 0.1 % nasal spray if needed. 023 Active buPROPion XL (Wellbutrin XL) 150 MG 24 hr tablet Active cefuroxime (Ceftin) 500 MG tablet Active donepezil (Aricept) 10 MG tablet Take 1 tablet (10 mg) by mouth 1 (one) time each day. 90 tablet 1 024 Active divalproex (Depakote) [address] tablet Take 1 tablet (500 mg) by mouth every night. Do not crush, chew, or split. 90 tablet 3 024 2024 Active oxybutynin XL (Ditropan-XL) 10 MG 24 hr tablet 025 Active memantine (Namenda) 10 MG tabletIndications :Mild cognitive impairment Take one tablet twice a day. 180 tablet 3 025 Active Cipro 500 MG tablet Take 1 tablet by mouth 2 times a day. 025 Active divalproex (Depakote ER) 250 MG 24 hr tablet TAKE 1 TABLET BY MOUTH ONCE DAILY 90 tablet 2 025 Active divalproex (Depakote ER) 250 MG 24 hr tablet Take 1 tablet (250 mg) by mouth 1 (one) time each day. 90 tablet 3 024 2024 Discontinued Hospital, Clinic, or Other Facility Administered Medication [...] (06/30/2022): Added automatically from request for surgery [id number] Closed right radial fracture 01/16/2022 Overview (01/27/2022): [...] Encounters Date Type Department Care Team Description 04/23/2025 Refill [facility] [address] [place] [address] Gayle Aaron APRN 03/28/2025 12:00 PM EDT Office Visit [facility] [address] [address] Jane Rojas MD Urinary urgency (Primary Dx); Urge incontinence; Urinary frequency; Mixed incontinence; Acute cystitis without hematuria 03/28/2025 Travel 03/15/2025 11:00 AM EDT Office Visit [facility] [address] [place] [address] Brent Lee, DMD Closed fracture of tooth, initial encounter (Primary Dx) 03/15/2025 Travel 03/12/2025 Telephone [facility] [address], [address] [place] [address] Jane Rjoas MD 03/10/25 Urine culture 03/12/2025 Telephone [facility] [address], [address] [place] [address] oRya Jauregui, RN Records Request; 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 or to [...] Pulse 83 03/28/2025 1:30 PM EDT Temperature 36.9 C (98.5 F) [...] 07/03/2025 1:10 PM EDT Office Visit [facility] [address] [place] [address] Gayle Aaron APRN [address] [place] [address] 10/03/2025 1:00 PM EST Procedure Visit [facility] [address], [address] [place] [address] Jane Rojas MD [address] [place] [address] Health Maintenance Due Date Last Done Comments Dental Oral Exam 1955 Dental Prophylaxis 1955 Dental X-Ray: Bitewings 1955 Dental X-Ray: Full Mouth 1955 [facility]-Bone Density Scan 1955 [facility]-Medicare Annual Wellness (AWV) 1955 [facility]-Infant/Child/Adol SDOH Screenings 1955 [facility]- SDOH Screenings 11/15/1973 [facility]-Adult SDOH Screenings 11/15/1973 CT Colonography 11/15/2000 Colonoscopy 11/15/2000 FIT-DNA 11/15/2000 FIT 11/15/2000 FOBT 11/15/2000 Sigmoidoscopy 11/15/2000 [facility]-Colorectal Cancer Screening 11/15/2000 [facility]-Breast Cancer Screening 11/15/2005 NCL-ZEHTF-90 Vaccine (5 2023- season) 2024 06/22/2022, 12/31/2021, 07/17/2021, Additional history exists [facility]-Influenza Vaccine (#1) 05/14/202506/22, 06/16/2021, 08/16/2020, Additional history exists [facility]-Depression Screening [...] 06/16/2021 [facility]-RSV Vaccine: 60+ Years or Completed 07/28/2024 [facility]-Obesity Intervention Completed 025, 03/15/2025, 12/25/2024, Additional history exists HPV Vaccines Aged Out [...] this topic Medical Devices Implanted Type Area Linotyper Device Identifier Shelf Expiration Date Model / Serial / Lot Cement With Tobramycin - [id number] Implanted:Qty: 3 on 01/06/2023 by Reese Galindo MD at [facility] Cement Right: Knee [id number] 04/12/2024 [id number] / / [id number] Distalfemur [id number] - [id number] Implanted:Qty: 1 on 01/06/2023 by Reese Galindo MD at [facility] Knee Right: Knee Ons Surgical [facility]-918983 03/25/2029 [id number] / / [id number] Midsection Male-Female 90mm - [id number] Implanted:Qty: 1 on 01/06/2023 by Reese Galindo MD at [facility] Knee Right: Knee Onkos [employer] Inc-988826 02/25/2029 [id number] / / [id number] Eleos Tibial Hinge W/O Rotational Stop - [id number] Implanted:Qty: 1 on 01/06/2023 by Reese Galindo MD at [facility] Knee Right: Knee Onkos [employer] Inc-793454 04/22/2030 [id number] / / [id number] Tibial Poly Spacer 8mm - [id number] Implanted:Qty: 1 on 01/06/2023 by Reese Galindo MD at [facility] Knee Right: Knee Onk[employer] Inc-690894 02/13/2030 [id number] / / [id number] Distalfemur Axial Pin One Size - [id number] Implanted:Qty: 1 on 01/06/2023 by Reese Galindo MD at [facility] Knee Right: Knee Onk[employer] Inc-678558 08/19/2030 [id number] / / [id number] Nail Femoral Retro T2 Alpha 10mm X 360mm - [id number] Implanted:Qty: 1 on 01/08/2022 by Julian Gallego MD at [facility] Nail Left: Leg [employer] ([employer])-105207 09/12/2031 2339-1036S / / Plate Crosslock Std Dvr Lt - [id number] Implanted:Qty: 1 on 01/08/2022 by Julian Gallego MD at [facility] Plate Left: Wrist [employer] Inc-119250 01/08/2023 [id number] / / Plate Tibia Prox 3.5 12h 185m Left - [id number] Implanted:Qty: 1 on 01/08/2022 by Julian Gallego MD at [facility] Plate Left: Leg Synthes [employer]-262806 01/08/2023 239.943 / / Plate 4.5mm Tiva Cond 14hole 301mm L - [id number] Implanted:Qty: 1 on 01/08/2022 by Julian Gallego MD at [facility] Plate Left: Leg [employer]ynthes [place]-425560 01/08/2023 04.124.415 / / Plate Lcp 3.5mm 215mm 16h - S. - [id number] Implanted:Qty: 1 on 03/04/2022 by Julian Gallego MD at [facility] Plate Right: Femur [employer]s [place]-449632 03/04/2023 223.661 / . / Nonlock Lp 2.7mm X 14mm - [id number] Implanted:Qty: 1 on 01/08/2022 by Julian Gallego MD at [facility] Screw Left: Wrist [employer] Inc-033373 01/08/2023 [id number] / / Nonlock Lp 2.7mm X 15mm - [id number] Implanted:Qty: 2 on 01/08/2022 by Julian Gallego MD at [facility] Screw Left: Wrist [employer] Inc-881798 01/08/2023 [id number] / / Nonlock Lp 2.7mm X 24mm - [id number] Implanted:Qty: 1 on 01/08/2022 by Julian Gallego MD at [facility] Screw Left: Wrist [employer] Inc-230928 01/08/2023 [id number] / / Screw 2.7mm Ti Locking Square 14mm - [id number] Implanted:Qty: 1 on 01/08/2022 by Julian Gallego MD at [facility] Screw Left: Wrist [employer] Inc-[id number] 01/08/2023 [id number] / / Screw 2.7mm Ti Locking Square 16mm - [id number] Implanted:Qty: 4 on 01/08/2022 by Julian Gallego MD at [facility] Screw Left: Wrist [employer] Inc-682083 01/08/2023 [id number] / / Screw 2.7mm Tilocking Square 18mm - [id number] Implanted:Qty: 1 on 01/08/2022 by Julian Gallego MD at [facility] Screw Left: Wrist [employer] Inc-212999 01/08/2023 [id number] / / Screw Locking Adv T2 T2 D5xl80 - [id number] Implanted:Qty: 2 on 01/08/2022 by Julian Gallego MD at [facility] Screw Left: Leg [facility]988298 10/13/2031 2361-5080S / / Screw Locking Adv T2 T2 D5xl60 - [id number] Implanted:Qty: 1 on 01/08/2022 by Julian Gallego MD at [facility] Screw Left: Leg [employer] [facility])-802645 09/12/2031 2361-5060S / / Screw Locking Adv T2 T2 D5xl75 - [id number] Implanted:Qty: 1 on 01/08/2022 by Julian Gallego MD at [facility] Screw Left: Leg [employer] [facility] [facility]326358 11/11/2031 2361-5075S / / Screw Locking T2 D5x35 - [id number] Implanted:Qty: 1 on 01/08/2022 by Julian Gallego MD at [facility] Screw Left: Leg [employer] ([facility])-882879 08/12/2031 2360-5035S / / Screw Locking T2 D5x37.5 - [id number] Implanted:Qty: 1 on 01/08/2022 by Julian Gallego MD at [facility] Screw Left: Leg [employer] ([facility])-739383 09/12/2031 2360-5037S / / Screw 3.5mm Cortex Low Profile Selftap 80mm - [id number] Implanted:Qty: 1 on 01/08/2022 by Julian Gallego MD at [facility] Screw Left: Leg [employer]-996772 01/08/2023 02.206.080 / / Screw 3.5mm Star Lock Selftap 80mm - [id number] Implanted:Qty: 2 on 01/08/2022 by Julian Gallego MD at [facility] Screw Left: Leg [employer] [place]-754661 01/08/2023 212.128 / / Screw 3.5mm Cortex Low Profile Selftap 65mm - [id number] Implanted:Qty: 1 on 01/08/2022 by Julian Gallego MD at [facility] Screw Left: Leg [employer] [place]-517654 01/08/2023 02.206.065 / / Screw Va Locking John 5mm 25mm - [id number] Implanted:Qty: 1 on 01/08/2022 by Julian Gallego MD at [facility] Screw [employer] [place]-[id number] 01/08/2023 42.231 .625 / / Screw 3.5mm Cortex Selftap 28mm - S. - [id number] Implanted:Qty: 1 on 03/04/2022 by Julian Gallego MD at [facility] Screw Right: Femur [employer] [place]-[id number] 03/04/2023 204.828 / . / Screw 3.5mm Cortex Selftap 40mm - S. - [id number] Implanted:Qty: 1 on 03/04/2022 by Julian Gallego MD at [facility] Screw Right: Femur [employer] [place]-594781 03/04/2023 204.840 / . / Screw 3.5mm Star Lock Selftap 24mm - S. - [id number] Implanted:Qty: 1 on 03/04/2022 by Julian Gallego MD at [facility] Screw Right: Femur Synthes [facility]-261226 03/04/2023 212.108 / . / Screw 3.5mm Star Lock Selftap 40mm - S. - [id number] Implanted:Qty: 1 on 03/04/2022 by Julian Gallego MD at [facility] Screw Right: Femur [employer] [place]-809768 03/04/2023 212.117 / . / Screw 4.0mm Cancellous Full Thread 50mm - S. - [id number] Implanted:Qty: 1 on 03/04/2022 by Julian Gallego MD at [facility] Screw Right: Femur Synthes [facility]-010829 03/04/2023 206.050 / . / Screw 4.0mm Cancellous Full Thread 45mm - S. - [id number] Implanted:Qty: 1 on 03/04/2022 by Julian Gallego MD at [facility] Screw Right: Femur Synthes [facility]-466828 03/04/2023 206.045 / . / Stem Str Fluted 28mm Collar 99vvf144at - [id number] Implanted:Qty: 1 on 01/06/2023 by Reese Galindo MD at [facility] Stem Right: Knee Onkos [employer] Inc-362023 09/30/2023 KX-44037-44P / / [id number] K-Wire Dual Trocar 045 X 152mm - [id number] Implanted:Qty: 2 on 01/06/2022 by Janice Stallworth MD at [facility] Wire [employer]-927827 12/09/2024 1600-645 / / [id number] Vip Vascular Closure Device 6 Fr - [id number] Implanted:Qty: 1 on 01/04/2022 by Paolo Pollack MD at [facility] [employer]-[id number] 10/13/2022 146047 / / [id number] Plug Amplatzer Vasc 5mm - [id number] Implanted:Qty: 1 on 01/04/2022 by Paolo Pollack MD at [facility] Amplat[employer] Medical-733702 07/13/2026 2-PKF898-866 / / [id number] Cement Palacos - [id number] Implanted:Qty: 1 on 01/04/2022 by Pippa Winslow MD at [facility] Left: Femur Herae[employer] Inc-121844 07/13/2024 1557196 / / [id number] Screw Schanz 5mm X 200mm - [id number] Implanted:Qty: 8 on 01/04/2022 by Pippa Winslow MD at [facility] Left: Femur [employer] [place]-515281 294.56 / / Christiano Carbon Fbr 11.0mm 350mm - [id number] Implanted:Qty: 1 on 01/04/2022 by Pippa Winslow MD at [facility] Left: Femur [employer]s [place]-028679 394.86 / / Clamp Cmbntn Lg Mri Safe None - [id number] Implanted:Qty: 2 on 01/04/2022 by Pippa Winslow MD at [facility] Left: Femur [employer] [place]-588597 390.005 / / Clamp Adj Lg Mri Safe None - [id number] Implanted:Qty: 8 on 01/04/2022 by Pippa Winslow MD at [facility] Left: Femur [employer] [place]-843184 390.008 / / Christiano Carbon Fbr 11.0mm 400mm - [id number] Implanted:Qty: 1 on 01/04/2022 by Pippa Winslow MD at [facility] Left: Femur [employer] [place]-440318 394.87 / / Screw Evos 2.4mm Cortex T7 Selftap 38mm - [id number] Implanted:Qty: 1 on 01/07/2022 by Julian Gallego MD at [facility] Right: Femur [employer] Inc-315922 [id number] / / Screw Evos 2.4mm Cortex T7 Selftap 44mm - [id number] Implanted:Qty: 1 on 01/07/2022 by Julian Gallego MD at [facility] Right: Femur [employer] Inc-789349 [id number] / / Screw Evos 2.4mm Cortex T7 Selftap 46mm - [id number] Implanted:Qty: 1 on 01/07/2022 by Julian Gallego MD at [facility] Right: Femur [employer] Inc-783947 [id number] / / Screw Evos 2.4mm Cortex T7 Selftap 55mm - [id number] Implanted:Qty: 1 on 01/07/2022 by Julian Gallego MD at [facility] Right: Femur [employer] Inc-059953 [id number] / / Screw Evos 2.4mm Cortex T7 Selftap 65mm - [id number] Implanted:Qty: 1 on 01/07/2022 by Julian Gallego MD at [facility] Right: Femur [employer] Inc-621001 12154385P / / Screw Evos 2.7mm Cortex T8 Selftap 75mm - [id number] Implanted:Qty: 1 on 01/07/2022 by Julian Gallego MD at [facility] Right: Femur [employer] Inc-146030 [id number] / / Screw Va Locking John Sterile 5mm 95mm - [id number] Implanted:Qty: 1 on 01/07/2022 by Julian Gallego MD at [facility] Right: Femur Synthes [facility]-411124 05/13/2030 42.231.695S / / [id number] Cement Palacos - [id number] Implanted:Qty: 1 on 01/07/2022 by Julian Gallego MD at [facility] Right: Femur Herae[employer] Inc-342220 12/11/2024 [id number] / / [id number] Screw Evos 2.4mm Cortex T7 Selftap 80mm - [id number] Implanted:Qty: 3 on 01/07/2022 by Julian Gallego MD at [facility] Right: Femur [employer] Inc-022435 [id number] / / Plate 4.5mm Tiva Cond 14hole 301mm R - [id number] Implanted:Qty: 1 on 01/07/2022 by Julian Gallego MD at [facility] Right: Femur [employer] [place]-808894 04.124.414 / / Screw 4.5mm Ti Cortex Selftap 38mm - [id number] Implanted:Qty: 2 on 01/07/2022 by Julian Gallego MD at [facility] Right: Femur [employer] [place]-547526 414.838 / / Screw Va Locking John 5mm 85mm - [id number] Implanted:Qty: 2 on 01/07/2022 by Julian Gallego MD at [facility] Right: Femur [employer] [place]-255878 42.231.685 / / Screw 4.5mm Ti Cortex Selftap 32mm - [id number] Implanted:Qty: 1 on 01/07/2022 by Julian Gallego MD at [facility] Right: Femur [employer] [place]-804125 414.832 / / Screw Va Locking John 5mm 90mm - [id number] Implanted:Qty: 1 on 01/07/2022 by Julian Gallego MD at [facility] Right: Femur [employer] [place]-599352 42.231.690 / / Screw 4.5mm Ti Cortex Selftap 38mm - [id number] Implanted:Qty: 1 on 01/07/2022 by Julian Gallego MD at [facility] Right: Femur [employer] [place]-181745 414.838 / / Washer 2.7mm Screw - [id number] Implanted:Qty: 1 on 01/07/2022 by Julian Gallego MD at [facility] Right: Femur [employer] Inc-605480 [id number] / / Screw 3.5mm Cortex Selftap 30mm - [id number] Implanted:Qty: 1 on 01/08/2022 by Julian Gallego MD at [facility] Left: Leg [employer] [place]-660175 01/08/2023 204.830 / / Screw 3.5mm Cortex Selftap 34mm - [id number] Implanted:Qty: 2 on 01/08/2022 by Julian Gallego MD at [facility] Left: Leg [employer] [place]-276893 01/08/2023 204.834 / / Screw 3.5mm Cortex Selftap 32mm - [id number] Implanted:Qty: 2 on 01/08/2022 by Julian Gallego MD at [facility] Left: Leg [employer] [place]-899794 01/08/2023 204.832 / / Screw 3.5mm Star Lock Selftap 75mm - [id number] Implanted:Qty: 1 on 01/08/2022 by Julian Gallego MD at [facility] Left: Leg [employer] [place]-073871 01/08/2023 212.127 / / Screw 3.5mm Cortex Selftap 28mm - [id number] Implanted:Qty: 1 on 01/08/2022 by Julian Gallego MD at [facility] Left: Leg [employer]s [place]-931322 01/08/2023 204.828 / / Screw Lock Va Slftp Amina 5mm T25 12mm - [id number] Implanted:Qty: 1 on 01/08/2022 by Julian Gallego MD at [facility] Left: Leg [employer] [place]-978202 01/08/2023 42.231.012 / / Screw 4.5mm Ti Cortex Selftap 34mm - [id number] Implanted:Qty: 2 on 01/08/2022 by Julian Gallego MD at [facility] Left: Leg [employer]s [place]-917554 01/08/2023 414.834 / / Chip Bone 10cc - [id number] - [id number] Implanted:Qty: 1 on 01/15/2022 by Julian Gallego MD at [facility]-512423 07/15/2026 [facility] / [id number] / [id number] Screw 2.7mm R3con Locking Plate 24mm - [id number] Implanted:Qty: 3 on 01/15/2022 by Julian Gallego MD at [place] [address] Inc-482191 [id number] / / Screw 2.7mm R3con Locking Plate 28mm - [id number] Implanted:Qty: 1 on 01/15/2022 by Julian Gallego MD at [place] [address] Inc-294367 [id number] / / Screw 3.5mm R3con Locking Plate 26mm - [id number] Implanted:Qty: 1 on 01/15/2022 by Julian Gallego MD at [facility] 28 Inc-671032 [id number] / / Archplate Medial Clmn Prox 1.5mm R Lg - [id number] Implanted:Qty: 1 on 01/15/2022 by Julian Gallego MD at [place] [address] Inc-510323 [id number] / / Screw 2.7mm R3con Locking Plate 30mm - [id number] Implanted:Qty: 1 on 01/15/2022 by Julian Gallego MD at [place] [address] Inc-255499 [id number] / / Screw 2.7mm R3con Locking Plate 26mm - [id number] Implanted:Qty: 1 on 01/15/2022 by Julian Gallego MD at [facility] Right: Foot [place] 28 Inc-587889 [id number] / / Screw 2.7mm R3con Nonlocking Plate 36mm - [id number] Implanted:Qty: 1 on 01/15/2022 by Julian Gallego MD at [facility] Right: Foot [place] 28 Inc-372124 [id number] / / Screw 3.5mm R3con Nonlocking Plate 28mm - [id number] Implanted:Qty: 1 on 01/15/2022 by Julian Gallego MD at [facility] Right: Foot [place] 28 Inc-296185 I24-582-2027 / / Screw 3.5mm R3con Locking Plate 24mm - [id number] Implanted:Qty: 1 on 01/15/2022 by Julian Gallego MD at [facility] Right: Foot [place] 28 Inc-321340 [id number] / / [place] Wire Threaded 1.6 X 80mm Implanted:Qty: 4 on 01/15/2022 by Julian Gallego MD at [place] [address] Inc-061880 B32-669-8590 / / Putty Dbx 10cc - [id number] Implanted:Qty: 1 on 03/04/2022 by Julian Gallego MD at [facility] Right: Femur [employer]-025250 05/23/2023 13388 / / [id number] Chip Bone 40cc - [id number] - [id number] Implanted:Qty: 1 on 03/04/2022 by Julian Gallego MD at [facility] Right: Femur [facility]-729319 11/20/2026 PCAN1/2 / [id number] / [id number] Chg Kit Prep Im Enhance Bone Repl - [id number] Implanted:Qty: 1 on 01/06/2023 by Reese Galindo MD at [facility] Right: Knee [employer]hew [employer] Inc-338975 001825 / / NOT PROVIDED Tibial Baseplate Size 4 Component - [id number] Implanted:Qty: 1 on 01/06/2023 by Reese Galindo MD at [facility] Right: Knee [employer] Inc-568956 12/31/2029 [id number] / / [id number] Explanted Type Area Linotyper Device Identifier Shelf Expiration Date Model / Serial / Lot Screw 3.5mm Cortex Selftap 70mm - S. - [id number] Explanted:Qty: 1 on 03/04/2022 by Julian Gallego MD at [facility] Screw Right: Femur Synthes [facility]-782420 03/04/2023 204.870 / . / Procedures Procedure Name Priority Date/Time Associated Diagnosis Comments [place] CYSTOURETHROSCOPY Routine 03/28/2025 2:35 PM EDT Urinary urgency Urge incontinence Urinary frequency Mixed incontinence Acute cystitis without hematuria 12 INTRAORAL - PERIAPICAL FIRST RADIOGRAPHIC IMAGE Routine 03/15/2025 11:00 AM EDT Closed fracture of tooth, initial encounter LIMITED ORAL EVALUATION - PROBLEM FOCUSED Routine 03/15/2025 11:00 AM EDT Closed fracture of tooth, initial encounter 13 PIN RETENTION - PER TOOTH, IN ADDITION TO SCIENTOLOGIST Routine 03/15/2025 12:00 AM EDT 13 MODBB(V)LL(V) COMPOSITE FILLING Routine 03/15/2025 12:00 AM EDT 12 PFM CROWN Routine 03/15/2025 12:00 AM EDT 14 PFM CROWN Routine 03/15/2025 12:00 AM EDT HEPATITIS C ANTIBODY - ED W/REFLEX TO HCV QUANT PCR STAT 01/04/2022 9:31 AM EDT from Last 3 Months or Most Recently Relevant to Health Maintenance Results * [place] CYSTOURETHROSCOPY (03/28/2025 2:35 PM EDT) Narrative Jane Rojas MD - 03/28/2025 2:35 PM EDT Jane Rojas MD 03/29/2025 7:48 AM Cystoscopy Diagnostic Date/Time: 03/28/2025 2:35 PM Performed by: Reza Mcallister MD Authorized by: Jane Rojas MD Procedure discussed: discussed risks, benefits and alternatives Director Of Contracts present: yes Timeout: timeout called immediately prior to procedure Prep: patient was prepped and draped in usual sterile fashion Prep type: Betadine Anesthesia: local anesthesia Procedure Details Cystoscope type: flexible Cystoscopy route: transurethral Cystoscopy location: [place] bladder Irrigation used: saline Position: dorsal lithotomy [...] given Disposition: discharged home in satisfactory condition us Jane Rojas MD PROCEDURE ORDERABLES Final Result * Hossein Hepatitis C Antibody (01/04/2022 9:31 AM EDT) Hepatitis C Antibody Negative Negative 01/04/2022 10:53 AM EDT [facility] Blood Arterial blood specimen / Unknown Venipuncture / Unknown 01/04/2022 9:31 AM EDT 01/04/2022 9:39 AM EDT us Barbara Espinosa MD LAB BLOOD ORDERABLES Final Res ult [facility] [address] [place] [address] from Last 3 Months or Most Recently Relevant to Health Maintenance Insurance [place] CLAIMS DENT[place] Advance Directives * Full [...] Patient has decision-making capacity? Yes Care Teams Bowling Pin Refinisher Relationship Specialty Start Date End Date Vivek Mederos MD [address] [place] [address] PCP - General 05/15/21 Genevieve Santos PA [address] [place] [id number] Physician Box Packer Neurology 05/15/21
--- OUTSIDE RECORDS SUMMARY | 2025-05-01 09:39 | XMS_ITS | Encounter Summary ---
Author Organization [facility] Address [address] [place] [address] Care Team Providers Care Medical Records Coder Name Role Phone Vivek Mederos MD Primary Care Provider [phone] Genevieve Santos Unavailable [phone] Reason for Visit * Reason Onset Date Comments HCN - Patient Message 07/14/2022 Results call back Encounter Details Date Type Department Care Team (Late st Contact Info) Description 07/14/2022 Telephone [place] [facility] [address], [address] [place] [address] Genevieve Santos PA [address] [place] [address] HCN - Patient Message (Results [...] optimal time of day to reach caller: [phone] Note: Please do not reply to this message. Follow-up communication and further actions as a result of this message need to be communicated with the patient directly, if the patient is not active onMyChart. If the patient is active on MyChart, they will receive notification of the communication/outcome via [email or web address]. * Telephone Encounter - Genevieve Santos PA - 07/20/2022 2:04 PM EST Called again * Telephone Encounter - Hoda Osorio - 07/20/2022 12:16 PM EST Patient Phone Message Reason for Call: Missed a call , please try again Verified number Best contact number and optimal time of day to reach caller: [phone] Note: Please do not reply to this [...] call me back * Telephone Encounter - Genveieve Santos PA - 07/15/2022 8:43 AM EDT I would like to view with Dr. Gay tomorrow and then I will call her. * Telephone Encounter - Hoda Osorio - 07/14/2022 3:23 PM EDT Patient Phone Message Reason for Call: MRI Results Best contact number and optimal time of day to reach caller: [phone] Note: Please do not reply to this message. Follow-up communication and further actions as a result of this message need to be communicated with the patient directly, if the patient is not active onMyChart. If the patient is active on MyChart, they will receive notification of the communication/outcome via [email or web address]. documented in this encounter Plan of Treatment Upcoming Encounters Date Type Department Care Team (Late st Contact Info) Description 07/03/2025 1:10 PM EDT Office [facility] [place] [facility] [address] [place] [address] Gayle Aaron, STITCH BONDING MACHINE TENDER HELPER [address] [place] [address] 10/03/2025 1:00 PM EST Procedure Visit [facility] [address] [place] [address] Jane Rojas MD [address] [place] [address] documented as of this encounter Visit Diagnoses Not on filedocumented in this encounter Additional Health Concerns Assessment Noted Time A fall risk assessment has been complete d for the patient 06/30/2022 11:00 AM EDT documented as of this encounter Care Teams Medical Records Coder Relationship Specialty Start Date End Date Vivek Mederos MD [address] [place] [address] PCP - General 05/15/21 Genevieve Santos PA [address] [place] [address] Physician Head Of Talent Management Neurology 05/15/21 documented as of this encounter
--- OUTSIDE RECORDS SUMMARY | 2025-05-01 09:39 | XMS_ITS | Encounter Summary ---
Author Organization Healthcare Address [address] [place] [address] Care Team Providers Care Deburr Technician Name Role Phone Vivek Mederos MD Primary Care Provider [phone] Genevieve Santos Unavailable [phone] Encounter Details Date Type Department Care Team (Late Contact Info) Description 01/05/2022 Lab Requisition [facility] [address] [place] [address] Sanjeev Rod MD [address] [place] [address] Encounter for general adult medical [...] Description 07/03/2025 1:10 PM EDT [facility] [place] [facility] [address] [place] [address] Gayle Aaron APRN [address] [place] [address] 10/03/2025 1:00 PM EST Procedure Visit [facility] [address], [address] [place] [address] Jane Rojas MD [address] [place] [address] documented as of this encounter Procedures Procedure Name Priority Date/Time Associated Diagnosis Comments MULTI DRUG RESISTANCE TEST Routine 01/05/2022 7:00 PM EDT Encounter for general adult medical examination without abnormal findings documented in this encounter Results * Multi Drug Resistance Test (01/05/2022 7:00 PM EDT) Culture No growth at day 2 01/07/2022 9:35 AM EDT [facility] Swab (Nares and Amina Rectal) 01/05/2022 7:00 PM EDT 01/05/2022 9:16 PM EDT Sanjeev Newsome MD LAB MICROBIOLOGY - GENERAL ORDERABLES Final Result [facility] [address] [place] [address] documented in this encounter Visit Diagnoses Diagnosis Encounter for general adult medical examination without abnormal findings documented in this encounter Additional Health Concerns Assessment Noted Time A fall risk assessment has been complete d for the patient 05/15/2021 4:08 PM EDT documented as of this encounter Care Teams Deburr Technician Relationship Specialty Start Date End Date Vivek Mederos MD [address] [place] [address] PCP - General 05/15/21 Genevieve Santos PA [address] [email or web address] [address] [place] [address] Physician Self Propelled Mining Machine Operator Neurology 05/15/21 documented as of this encounter
--- OUTSIDE RECORDS SUMMARY | 2025-05-01 09:39 | XMS_ITS | Encounter Summary ---
Author Organization Healthcare Address [address] [place] [address] Care Team Providers Care Distance Learning Unit Leader Name Role Phone Vivek Mederos MD Primary Care Provider [phone] Genevieve Santos Unavailable [phone] Reason for Visit * Reason Onset Date Comments HCN - Patient Message 05/21/2022 HCN - Rx Refill Request 05/21/2022 Encounter Details Date Type Department Care Team (Late st Contact Info) Description 05/21/2022 Telephone PFE SCHEDULING [address] [place] [address] Julian Gallego MD [address] [place] [address] HCN - Patient Message; HCN [...] 500mg Oxycodone 5mg Preferred Pharmacy & Location: [facility] pharmacy Days of medication remaining [...] like to use is: [place] [phone] Best contact number and optimal time of day to reach caller: [phone] Note: Please do not reply to this message. Follow-up communication and further actions as a result of this message need to be communicated with the patient directly, if the patient is not active onMyChart. If the patient is active on MyChart, they will receive notification of the communication/outcome via [email or web address]. documented in this encounter Plan of Treatment Upcoming Encounters Date Type Department Care Team (Late st Contact Info) Description 07/03/2025 1:10 PM EDT Office Visit [facility] [place] - [facility] [address] [place] [address] Gayle Aaron APRN [address] [place] [address] 10/03/2025 1:00 PM EST Procedure Visit [facility] [address] [place] [address] Jane Rojas MD [address] [place] [address] documented as of this encounter Visit Diagnoses Not on filedocumented in this encounter Additional Health Concerns Assessment Noted Time A fall risk assessment has been complete d for the patient 05/21/2022 11:29 AM EDT documented as of this encounter Care Teams Distance Learning Unit Leader Relationship Specialty Start Date End Date Vivek Mederos MD [address] [place] [address] PCP - General 05/15/21 Genevieve Santos PA [address] [place] [address] Physician Natural Gas Trader Neurology 05/15/21 documented as of this encounter
--- OUTSIDE RECORDS SUMMARY | 2025-05-01 09:39 | XMS_ITS | Clinical Summary ---
Author Organization [facility] Address [facility] [place] [address] Phone Care Team Providers Care Senior Behavioral Scientist Name Role Phone Dewey Wade DPM Unavailable [phone] Vivek Mederos MD Primary Care Provider [phone] Allergies Active Allergy Reactions Criticality Noted Date [...] (10/31/2021): Added automatically from request for surgery [id number] Ingrowing nail 08/11/2021 Unspecified venous (peripheral) insufficiency [...] PCV21) 01/11/2023 01/11/2022, 06/16/2021 COVID-19 Vaccine ( - season) 2024 06/22/2022, 12/31/2021, 07/17/2021 Influenza Vaccine (#1) 2025 , 06/16/2021, 08/16/2020, Additional history exists DTaP/TDaP/Td (5 - Td or Tdap) 01/04/2032 01/03/2022, 10/30/2016, 03/08/2012, Additional history exists Zoster Completed 06/16/2021, 03/14, 12/01/2017 Meningococcal B Vaccine Aged Out 03/09/2022, 01/11 No longer eligible based on patient's age to complete this topic Hepatitis B Vaccine Aged Out No longe r eligible based on patient's age to complete this topic Medical Devices Implanted Type Area Chief Innovation Officer Device Identifier Shelf Expiration Date Model / Serial / Lot Toes Metal Ioc Insurance [place]ICAID [place] MEDIC[place] HMO MR [place] MEDICARE O Care Teams Senior Behavioral Scientist Relationship Specialty Start Date End Date Vivek Mederos MD [address] [facility] [address] [place] [address] PCP - General Family Medicine 08/04/16 Dewey Wdae DPM [address] [place] [address] [address] [place] [address] Surgical Services Director-Surgery, Foot & Ankle 06/26/14
--- OUTSIDE RECORDS SUMMARY | 2025-05-01 09:39 | XMS_ITS | Encounter Summary ---
Author Organization [facility] Address [address] [place] [address] Care Team Providers Care Store Grocery Merchandiser Name Role Phone Vivek Mederos MD Primary Care Provider [phone] Genevieve Santos Unavailable [phone] Reason for Visit * Reason Comments Med Refill Encounter Details Date Type Department Care Team (Late st Contact Info) Description 08/02/2024 [facility] [place] [facility] [address] [place] [address] Gayle Aaron, TRUCK FARMER [address] [place] [address] Social History Tobacco Use Types [...] first t nolvia in the morning (EYE-SUPERVISOR COMPONENT ASSEMBLER) to steady your nerves or to get [...] Description 07/03/2025 1:10 PM EDT [facility] [place] [facility] [address] [place] [address] Gayle Aaron APRN [address] [place] [address] 10/03/2025 1:00 PM EST Procedure Visit [facility] [address] [place] [address] Jane Rojas MD [address] [place] [address] documented as of this encounter [...] documented as of this encounter Care Teams Store Grocery Merchandiser Relationship Specialty Start Date End Date Vivek Mederos MD [address] [place] [address] PCP - General 05/15/21 Genevieve Santos PA [address] [place] [address] Physician Staff Genetic Counselor Neurology 05/15/21 documented as of this encounter
== END 2025-05-01 23:59 | disposition home or self-care (01) ==
LOC: RAD 09:29
PROVIDERS: PCP Family Medicine; Visit Provider Family Medicine
DX: M85.852 Other specified disorders of bone density and structure, left thigh (principal); M85.851 Other specified disorders of bone density and structure, right thigh; M85.88 Other specified disorders of bone density and structure, other site; Z13.820 Encounter for screening for osteoporosis
CPT/HCPCS: 77080

== ENCOUNTER 2025-05-10 13:00 | Outpatient (RCR) | payer MEDICARE, MEDICAID, SELFPAY | END 2025-05-10 23:59 | disposition home or self-care (01) | LOC: PT 13:00 | PROVIDERS: Visit Provider Family Medicine | DX: R26.89 Other abnormalities of gait and mobility (principal) | CPT/HCPCS: 97112; 97140; 97530 ==

== ENCOUNTER 2025-06-21 14:09 | Outpatient (CLI) | payer MEDICARE, MEDICAID, SELFPAY ==
--- OUTSIDE RECORDS SUMMARY | 2025-06-22 02:58 | XMS_ITS | Encounter Summary ---
Author Organization [facility] Address [address] [place] [address] Care Team Providers Care Edge Stitcher Name Role Phone Vivek Mederos MD Primary Care Provider [phone] Genevieve Santos Unavailable [phone] Reason for Visit * Reason Comments Med Refill Encounter Details Date Type Department Care Team (Late st Contact Info) Description 08/02/2024 [facility] [place] [facility] [address] [place] [address] Gayle Aaron, MINE CAR MECHANIC [address] [place] [address] Social History Tobacco Use Types [...] drink first t nolvia in the morning (EYE-POLICE SERGEANT PRECINCT) to steady your nerves or to get [...] Description 07/03/2025 1:10 PM EDT [facility] [place] [facility] [address] [place] [address] Gayle Aaron APRN [address] [place] [address] 10/03/2025 1:00 PM EST Procedure Visit [facility] [address] [place] [address] Jane Rojas MD [address] [place] [address] documented as of this encounter [...] documented as of this encounter Care Teams Edge Stitcher Relationship Specialty Start Date End Date Vivek Mederos MD [address] [place] [address] PCP - General 05/15/21 Genevieve Santos PA [address] [place] [address] Physician Back Wedger Neurology 05/15/21 documented as of this encounter
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
--- OUTSIDE RECORDS SUMMARY | 2025-06-22 02:58 | XMS_ITS | Encounter Summary ---
Author Organization Healthcare Address [address] [place] [address] Care Team Providers Care Breadman Name Role Phone Vivek Mederos MD Primary Care Provider [phone] Genevieve Santos Unavailable [phone] Reason for Visit * Reason Comments Med Refill Encounter Details Date Type Department Care Team (Late st Contact Info) Description 04/12/2023 Refill [facility] [place] - [facility] [address] [place] [address] Cuca Das, PA [address] [place] [address] Social History Tobacco Use Types [...] drink first t nolvia in the morning (EYE-DYE RANGE OPERATOR) to steady your nerves or to [...] 07/03/2025 1:10 PM EDT [facility] [place] [facility] [address] [place] [address] Gayle Aaron APRN [address] [place] [address] 10/03/2025 1:00 PM EST Procedure Visit [facility] [address] [place] [address] Jane Rojas MD [address] [place] [address] documented as of this encounter Visit Diagnoses Not on filedocumented in this encounter Additional Health Concerns Assessment Noted Time A fall risk assessment has been complete d for the patient 03/23/2023 3:02 PM EDT A Body Mass Index follow-up plan has been documented for the patient 03/24/2023 7:31 AM EDT documented as of this encounter Care Teams Breadman Relationship Specialty Start Date End Date Vivek Mederos MD [address] [place] [address] PCP - General 05/15/21 Genevieve Santos PA [address] [place] [address] Physician Resawyer Neurology 05/15/21 documented as of this encounter
--- OUTSIDE RECORDS SUMMARY | 2025-06-22 02:58 | XMS_ITS | Encounter Summary ---
Author Organization [facility] Address [address] [place] [address] Care Team Providers Care Teacher Public Health Name Role Phone Vivek Mederos MD Primary Care Provider [phone] Genevieve Santos Unavailable [phone] Reason for Visit * Reason Comments Med Refill Encounter Details Date Type Department Care Team (Late st Contact Info) Description [facility] [place] [facility] [address] [place] [address] Gayle Aaron, DECKHAND CLAM DREDGE [address] [place] [address] Social History Tobacco Use Types [...] drink first t nolvia in the morning (EYE-ETCHER ELECTROLYTIC) to steady your nerves or to get [...] 07/03/2025 1:10 PM EDT Office [facility] [place] - Memory [address] [place] [id number] Gayle Aaron APRN [address] [place] [address] 10/03/2025 1:00 PM EST Procedure Visit [facility] [address] [place] [address] Jane Rojas MD [address] [place] [address] documented as of this encounter [...] documented as of this encounter Care Teams Teacher Public Health Relationship Specialty Start Date End Date Vivek Mederos MD [address] [place] [address] PCP - General 05/15/21 Genevieve Santos PA [address] [place] [address] Physician Street Light Cleaner Neurology 05/15/21 documented as of this encounter
--- OUTSIDE RECORDS SUMMARY | 2025-06-22 02:58 | XMS_ITS | Encounter Summary ---
Author Organization Healthcare Address [address] [place] [address] Care Team Providers Care Well Logging Mud Analysis Captain Name Role Phone Vivek Mederos MD Primary Care Provider [phone] Genevieve Santos Unavailable [phone] Encounter Details Date Type Department Care Team (Late Contact Info) Description 01/05/2022 Lab Requisition [facility] [address] [place] [address] Sanjeev Rod MD [address] [place] [address] Encounter for general adult medical [...] Description 07/03/2025 1:10 PM EDT [facility] [place] [facility] [address] [place] [address] Gayle Aaron APRN [address] [place] [address] 10/03/2025 1:00 PM EST Procedure Visit [facility] [address] [place] [address] Jane Rojas MD [address] [place] [address] documented as of this encounter Procedures Procedure Name Priority Date/Time Associated Diagnosis Comments MULTI DRUG RESISTANCE TEST Routine 01/05/2022 7:00 PM EDT Encounter for general adult medical examination without abnormal findings documented in this encounter Results * Multi Drug Resistance Test (01/05/2022 7:00 PM EDT) Culture No growth at day 2 01/07/2022 9:[address] [facility] Swab (Nares and Amina Rectal) 01/05/2022 7:00 PM EDT 01/05/2022 9:16 PM EDT Sanjeev Newsome MD LAB MICROBIOLOGY - GENERAL ORDERABLES Final Result [facility] [address] [place] [address] documented in this encounter Visit Diagnoses Diagnosis Encounter for general adult medical examination without abnormal findings documented in this encounter Additional Health Concerns Assessment Noted Time A fall risk assessment has been complete d for the patient 05/15/2021 4:08 PM EDT documented as of this encounter Care Teams Well Logging Mud Analysis Captain Relationship Specialty Start Date End Date Vivek Mederos MD [address] [place] [address] PCP - General 05/15/21 Genevieve Santos PA [address] [facility] [address] [place] [address] Physician Gravel Weigher Neurology 05/15/21 documented as of this encounter
--- OUTSIDE RECORDS SUMMARY | 2025-06-22 02:59 | XMS_ITS | Encounter Summary ---
Author Organization Healthcare Address [address] [place] [address] Care Team Providers Care Automatic Steel Tie Adjuster Name Role Phone Vivek Mederos MD Primary Care Provider [phone] Genevieve Santos Unavailable [phone] Reason for Visit * Reason Onset Date Comments HCN - Patient Message 05/21/2022 HCN - Rx Refill Request 05/21/2022 Encounter Details Date Type Department Care Team (Late st Contact Info) Description 05/21/2022 Telephone PFE SCHEDULING [address] [place] [address] Julian Gallego MD [address] [place] [address] HCN - Patient Message; HCN [...] 500mg Oxycodone 5mg Preferred Pharmacy & Location: [facility] pharmacy Days of medication remaining [...] like to use is: [place] [phone] Best contact number and optimal time of day to reach caller: [phone] Note: Please do not reply to this message. Follow-up communication and further actions as a result of this message need to be communicated with the patient directly, if the patient is not active onMyChart. If the patient is active on MyChart, they will receive notification of the communication/outcome via [employer]. documented in this encounter Plan of Treatment Upcoming Encounters Date Type Department Care Team (Late st Contact Info) Description 07/03/2025 1:10 PM EDT Office Visit [facility] [place] - Memory [address] [place] [address] Gayle Aaron APRN [address] [place] [address] 10/03/2025 1:00 PM EST Procedure Visit [facility] [address] [place] [address] Jane Rojas MD [address] [place] [address] documented as of this encounter Visit Diagnoses Not on filedocumented in this encounter Additional Health Concerns Assessment Noted Time A fall risk assessment has been complete d for the patient 05/21/2022 11:29 AM EDT documented as of this encounter Care Teams Automatic Steel Tie Adjuster Relationship Specialty Start Date End Date Vivek Mederos MD [address] [place] [address] PCP - General 05/15/21 Genevieve Santos PA [address] [place] [address] Physician School Janitor Neurology 05/15/21 documented as of this encounter
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
--- OUTSIDE RECORDS SUMMARY | 2025-06-22 02:59 | XMS_ITS | Encounter Summary ---
Author Organization [facility] Address [address] [place] [address] Care Team Providers Care Learning Support Services Director Name Role Phone Vivek Mederos MD Primary Care Provider [phone] Genevieve Santos Unavailable [phone] Reason for Visit * Reason Onset Date Comments HCN - Patient Message 07/14/2022 Results call back Encounter Details Date Type Department Care Team (Late st Contact Info) Description 07/14/2022 Telephone [place] [facility] [address] [place] [address] Genevieve Santos PA [address] [place] [address] HCN - Patient Message (Results [...] optimal time of day to reach caller: [phone] Note: Please do not reply to this message. Follow-up communication and further actions as a result of this message need to be communicated with the patient directly, if the patient is not active onMyChart. If the patient is active on MyChart, they will receive notification of the communication/outcome via [facility]. * Telephone Encounter - Genevieve Santos PA - 07/20/2022 2:04 PM EST Called again * Telephone Encounter - Hoda Osorio - 07/20/2022 12:16 PM EST Patient Phone Message Reason for Call: Missed a call , please try again Verified number Best contact number and optimal time of day to reach caller: [phone] Note: Please do not reply to this [...] optimal time of day to reach caller: [phone] Note: Please do not reply to this message. Follow-up communication and further actions as a result of this message need to be communicated with the patient directly, if the patient is not active onMyChart. If the patient is active on MyChart, they will receive notification of the communication/outcome via [facility]. documented in this encounter Plan of Treatment Upcoming Encounters Date Type Department Care Team (Late st Contact Info) Description 07/03/2025 1:10 PM EDT Office Visit [facility] [address] [place] [id number] Gayle Aaron, OPHTHALMIC PHOTOGRAPHER [address] [place] [address] 10/03/2025 1:00 PM EST Procedure Visit [facility] [address] [place] [address] Jane Rojas MD [address] [place] [address] documented as of this encounter Visit Diagnoses Not on filedocumented in this encounter Additional Health Concerns Assessment Noted Time A fall risk assessment has been complete d for the patient 06/30/2022 11:00 AM EDT documented as of this encounter Care Teams Learning Support Services Director Relationship Specialty Start Date End Date Vivek Mederos MD [address] [place] [address] PCP - General 05/15/21 Genevieve Santos PA [address] [place] [id number] Physician [facility] 05/15/21 documented as of this encounter
== END 2025-06-21 23:59 ==
LOC: LAB.DROPOF 06-22 02:55
PROVIDERS: PCP Student in an Organized Health Care Education/Training Program; Visit Provider Student in an Organized Health Care Education/Training Program
DX: R30.0 Dysuria (principal)
CPT/HCPCS: 87086; 87088

== ENCOUNTER 2025-07-02 12:02 | Outpatient (CLI) | payer MEDICARE, MEDICAID, SELFPAY ==
--- OUTSIDE RECORDS SUMMARY | 2024-05-08 10:00 | XMS_ITS ---
Author Organization [facility] Address [address] [id number] Care Team Providers Care Customer Support Associate Name Role Phone Susana Mederos Primary Care Provider Allergies Allergen (clinical drug ingredient) Drug/Non Drug Allergy documented on EMR Reaction Allergy Type Onset Date Status Neosporin Unknown Drug Allergy Active Polysporin rash Drug Allergy Active Substance with penicillin structure and antibacterial mechanism of action (substance) Penicillins Unknown Drug Allergy Active REASON FOR VISIT 2 months, Needs bone density screening Medications Medication SIG (Take, Route, Frequency, Duration) Notes Start Date End Date Status Aspirin 81 MG 1 tablet Orally ever y other day; Duration: 30 day(s) Active Divalproex Sodium 500 MG 1 tablet Orally At Bed Time; Duration: 90 days 04/23/2023 Active Divalproex Sodium ER 250 MG 1 tab(s) ora lly once a day in the morning; Duration: 90 days Active Donepezil HCl 10 MG TAKE 1 TABLET BY ONCE DAILY; Duration: 90 Active Levocetirizine Dihydrochloride 5 MG 1 tab(s) orally once a day (in the evening) Active Linzess 72 MCG 2 capsule at least 3 0 minutes before the first meal of the day on an empty stomach Orally Once a day Active Omeprazole 20 MG 1 cap(s) orally once a day; Duration: 90 days Active Acetaminophen 500 MG 2 cap(s) orally loreta ry 8 hours Active Myrbetriq 50 MG 1 tablet Orally Once a day; Duration: 30 day(s) Active Venlafaxine HCl ER 150 MG TAKE 1 CAPSULE BY MOUTH ONCE DAILY; Duration: 90 Active Cyclobenzaprine HCl 5 MG 1 tablet at bed time as needed Orally two times a day as needed; Duration: 5 days Active Mupirocin 2 % 1 application Keyboard Action Assembler ally Twice a day; Duration: 5 day(s) 03/10/2024 Active buPROPion HCl ER (XL) 300 MG 1 tablet in the morning Orally Once a day; Duration: 30 day(s) 03/10/2024 Active traMADol HCl 50 MG 1 tablet as needed Orally Once a day ass needed 03/10/2024 Active Lisinopril 5 MG 1 tab(s) orally once a day; Duration: 90 days Active Temazepam 15 MG 1 cap(s) orally at bedtime as needed 12/10/2023 Active Vital Signs Blood pressure systolic 140 mm Hg 05/08/20 24 Blood pressure diastolic 90 mm Hg 024 Heart Rate 91 /min 05/08/2024 Height 65 in 05/08/2024 Weight 204.2 lbs 05/08/2024 BMI 33.98 kg/m2 05/08/2024 Encounters Encounter Location Date Provider Diagnosis [facility] [address] [facility] [address] [facility] [address] [place] [id number] 05/08/2024 Susana Mederos Depression with anxi ety F41.8 ; Organic brain syndrome F09 ; Essential hypertension I10 ; Osteoporosis M81.0 ; Peripheral vascular insufficiency I73.9 and Frequent headaches R51.9 Assessments Encounter Date Diagnosis (ICD Code) Assessment Notes Treatment Notes Treatment Clinical Notes Section Notes 05/08/2024 Depression with anxiety (ICD-10 - F41.8) continue current therapy 05/08/2024 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) 05/08/2024 Essential hypertension (ICD-10 - I10) 05/08/2024 Osteoporosis (ICD-10 - M81.0) 05/08/2024 Peripheral vascular insufficiency (ICD-10 - I73.9) 05/08/2024 Frequent headaches (ICD-10 - R51.9) Plan Of Treatment Treatment Notes Assessment Notes Depression with anxiety continue current therapy Next Appt Details Follow Up: 4 Months, Reason: Provider Name:Susana Ricks er, 07/19/2025 02:15:00 PM, [address] [facility], [address], [place], [phone], Progress Notes * Panfilo ALDANA: 6 (69 yo F)Acc No.[id number]:05/08/2024 Progress Notes Patient: Stephani PUCKETT Provider: Susana Mederos M.D. :1955 A ge:68 Y S ex:Female Date:05/08/2024 Address:[address] [place], [place] [address], [id number] Subjective: * Chief Complaints: * 1 . 2 months. 2. Needs bone density screening. * HPI: C ardiology: The patient is here for a check up on Hypertension. Pt states she does not check her BP at home. Pt states her weight is about the same and she is having issues with constipation. Pt states she is taking the Linzess 72 mg 2 capsules daily. Denies : Chest Pain. D enies : Short of Breath. D enies : Dizziness. D enies : Palpitations. * ROS: D ERMATOLOGY: no R bridgre. n o H libby. G ASTROENTEROLOGY: no N ausea. n o V omiting. n o D iarrhea.? U ROLOGY: no D ifficulty urinating. n o B lood in urine. * Medical History: C erebral Hemorrhage, 1994, Glaucoma, Memory loss, Overactive bladder, OA, Depression, Chronic left leg wound 2014, followed by wound care, COVID 19 J&J 11/21/2020, 03/02/24 Echo, EF=55%, 03/02/24 JOSSELINE WNL. * Surgical History: B union x3 , Hammer toe , hemorrhoidectomy , Kidney Stones , EGD 06/2021, Colonoscopy 08/2021. * Hospitalization/Major Diagno stic Procedure: C erebral Hemorrhage 1994, UTI- [facility] 10/2014, Lt Knee Pain- [facility] [place] 12/30/2016. * Family History: F ather: , cancer. M other: , heart disease. 2 sister(s) . . sister had ovarian and vaginal cancer; Mom had breast cancer and vulvar cancer; Dad had throat cancer. * Social History: C URRENT TOBACCO USE S moking Status: Patient does NOT smoke. C affeine: yes, frequency:. Home smoke detector use: yes. Marital Status: Single. Past smoking status: no. * Medications: T aking Linzess 72 MCG Capsule 2 capsule at least 30 minutes before the first meal of the day on an empty stomach Orally Once a day , Taking Myrbetriq 50 MG Tablet Extended Release 24 Hour 1 tablet Orally Once a day , Taking Acetaminophen 500 MG Capsule 2 cap(s) orally every 8 hours , Taking Levocetirizine Dihydrochloride 5 MG Tablet 1 tab(s) orally once a day (in the evening) , Taking Donepezil HCl 10 MG Tablet TAKE 1 TABLET BY MOUTH ONCE DAILY , Taking Divalproex Sodium ER 250 MG Tablet Extended Release 24 Hour 1 tab(s) orally once a day in the morning , Taking Divalproex Sodium 500 MG Tablet Delayed Release 1 tablet Orally At Bed Time , Taking Aspirin 81 MG Tablet Delayed Release 1 tablet Orally every other day , Taking Temazepam 15 MG Capsule 1 cap(s) orally at bedtime as needed , Taking Lisinopril 5 MG Tablet 1 tab(s) orally once a day , Taking traMADol HCl 50 MG Tablet 1 tablet as needed Orally Once a day ass needed , Taking buPROPion HCl ER (XL) 300 MG Tablet Extended Release 24 Hour 1 tablet in the morning Orally Once a day , Taking Mupirocin 2 % Ointment 1 application Externally Twice a day , Taking Cyclobenzaprine HCl 5 MG Tablet 1 tablet at bedtime as needed Orally two times a day as needed , Taking Venlafaxine HCl ER 150 MG Capsule Extended Release 24 Hour TAKE 1 CAPSULE BY MOUTH ONCE DAILY , Taking Omeprazole 20 MG Capsule Delayed Release 1 cap(s) orally once a day , Discontinued Meloxicam 15 MG Tablet 1 tab(s) orally once a day , Discontinued oxyBUTYnin Chloride 5 MG Tablet 1 tablet Orally Twice a day , Medication List reviewed and reconciled with the patient * Allergies: P enicillins, Neosporin, Polysporin: rash. Objective: * Vitals: W t:204.2, Temp:98.1, BP:140/90, HR:91, Nurse:RISHI, Ht: 65, BMI:33.98. * Examination: G eneral Examination: General Appearance: N AD. H EENT: u nremarkable.?Oral cavity: n o lesions, mucosa moist and WNL, no erythema. N dann: s upple, no lymphadenopathy. C hest: n ormal shape and expansion. H eart: R SR. L ungs: c lear to auscultation. A bdomen: soft and nontender, no organomegaly or masses. N eurologic Exam: No change in exam, uses a walker. S kin: n ormal, no rash. P eripheral pulses: n ormal . B ack: no CVA tenderness. E xtremities: t race leg edema, abrasion of the right pretibial area with eschar. Assessment: * Assessment: 1. D epression with anxiety - F41.8 (Primary) 2 . O rganic brain syndrome - F09 3 . E ssential hypertension - I10 4 . O steoporosis - M81.0 5 . P eripheral vascular insufficiency - I73.9 6 . F requent headaches - R51.9 Plan: * Treatment: * Procedure Codes: G 2211 Complex e/m visit add on * Follow Up: 4 Months * Images: Billing Information: * Visit Code: 85730 Office Visit, Est Pt., Level 4. * Procedure Codes: G2211 Complex e/m visit add on. * Electronic signature of Susana Mederos MD on 07/04/2025 at 12:42 PM EDT Sign off status: Pending * Provider: Susana Mederos M.D. Date: 0 05/08/2024 Generated for Aracelyi tomeka/Marianna/eTransmitting on: 1 12:42 PM EDT History and Physical Notes * HPI (History of Present Illness) Category Sub-Category Detail Notes Category Not es Cardiology Short of Breath Chest Pain Palpitations Dizziness Examination Category Sub-Category Detail Notes Category Not es General Examination HEENT: unremarkable Heart: RSR Lungs: clear to auscultatio n Abdomen: soft and nontender, no organomegaly or masses Extremities: trace leg edema, abr asion of the right pretibial area with eschar General Appearance: NAD Skin: normal, no rash Neurologic Exam: No change in exam, u ses a walker Neck: supple, no lymphaden opathy Oral cavity: no lesions, mucosa m oist and WNL, no erythema Peripheral pulses: normal Back: no CVA tenderness Chest: normal shape and exp ansion
--- OUTSIDE RECORDS SUMMARY | 2024-07-27 11:45 | XMS_ITS ---
[facility] [address] [facility] [address] [facility] [address] [place] [id number] Care Team Providers Care Laundry Agent Name Role Phone Susana Mederos Primary Care Provider REASON FOR VISIT flu shot Immunizations Vaccine Route Administration Date Status Comme nts Fluzone High Dose (65yr and older) IM Intramuscular 07/27/2024 Administered PNEUMOVAX 23 VACCINE IM Intramuscular 07/27/2024 Administe red Vital Signs Height 65 in 07/27/2024 Weight 196.2 lbs 07/27/2024 BMI 32.65 kg/m2 07/27/2024 Encounters Encounter Location Date Provider Diagnosis [facility] [address] [facility] [address] [facility] [address] [place] [phone] 07/27/2024 Susana Mederos Encounter for immunization Z23 Assessments Encounter Date Diagnosis (ICD Code) Assessment Notes Treatment Notes Treatment Clinical Notes Section Notes 07/27/2024 Encounter for immunization (ICD-10 - Z23) Plan Of Treatment Next Appt Details Provider Name:Susana Ricks er, 07/19/2025 02:15:00 PM, [address] [facility] [address] [facility], [address], [place], [id number], Progress Notes * Bonnie ALDANAshelbyDOB: 6 (69 yo F)Acc No.[id number]:07/27/2024 Patient: Stephani PUCKETT Provider: Susana Mederos M.D. :1955 A ge:68 Y S ex:Female Date:07/27/2024 Address:[facility] [place], [id number] Subjective: * Chief Complaints: * 1 . Flu shot. * Medical History: Objective: * Vitals: W t:196.2, Temp:*, BP:*, Nurse:ISABEL, Ht: 65, BMI:32.65. Assessment: * Assessment: 1. E ncounter for immunization - Z23 (Primary) Plan: * Treatment: * Immunizations: Fluzone High Dose (65yr and older) : 0.5 mL (Route: Intramuscular) given by Jodi Dempsey on Right Arm (Encounter for immunization) PNEUMOVAX 23 VACCINE : 0.5 (Route: Intramuscular) given by Jodi Dempsey on Left Deltoid (Encounter for immunization) * Images: Billing Information: * Visit Code: * Procedure Codes: * Electronic signature of Susana Mederos MD on 07/04/2025 at 12:41 PM EDT Sign off status: Pending * Provider: Susana Mederos M.D. Date: 09/26/2023 Generated for Mag eckert/Marianna/Alenasmitting on: 12:41 PM EDT
--- OUTSIDE RECORDS SUMMARY | 2024-08-23 06:45 | XMS_ITS ---
Author Organization [facility] Address [address] [id number] Care Team Providers Care Ophthalmic Technologist Name Role Phone Susana Mederos Primary Care Provider Allison Duggan Unavailable [phone] Allergies Allergen (clinical drug ingredient) Drug/Non Drug Allergy documented on EMR Reaction Allergy Type Onset Date Status Neosporin Unknown Drug Allergy Active Polysporin rash Drug Allergy Active Substance with penicillin structure and antibacterial mechanism of action (substance) Penicillins Unknown Drug Allergy Active Results Component Value Reference Range Notes Influenza Screen (in house) Reviewed date:08/23/2024 11:20:46 AM Interpretation:Negative Performing Lab: Notes/Report: Negative results neg CBC Fingerstick (in house) Reviewed date:08/23/2024 11:46:18 AM Interpretation: Performing Lab: Notes/Report: wbc 6.9 3.5 - 10 lym 21.9 15 - 50 mid 6.0 2 - 15 gran 72.1 35 - 80 rbc 4.37 3.5 - 5.5 hgb 12.7 11.5 - 16.5 hct 38.8 35 - 55 mcv 88.9 75 - 100 mch 29.0 25 - 35 mchc 32.6 31 - 38 plat 212 100 - 400 Covid test (in house) Reviewed date:08/23/2024 11:21:27 AM Interpretation:Negative Performing Lab: Notes/Report: Negative Result: neg REASON FOR VISIT SORE THROAT, COUGH Medications Medication SIG (Take, Route, Frequency, Duration) Notes Start Date End Date Status Myrbetriq 50 MG TAKE 1 TABLET BY MITESH TH ONCE DAILY; Duration: 30 Active Donepezil HCl 10 MG TAKE 1 TABLET BY MITESH TH ONCE DAILY; Duration: 90 Active Venlafaxine HCl ER 150 MG TAKE 1 CAPSULE BY MOUTH ONCE DAILY; Duration: 90 days Active Lisinopril 5 MG 1 tab(s) orally once a day; Duration: 90 days Active buPROPion HCl ER (XL) 300 MG 1 tablet in the morning Orally Once a day; Duration: 30 day(s) Active Ondansetron 4 MG DISSOLVE 1 TABLET BY MOUTH 3 TIMES A DAY NEEDED FOR NAUSEA AND VOMITING; Duration: 7 Active Omeprazole 20 MG 1 cap(s) orally once a day; Duration: 90 days Active Mupirocin 2 % 1 application Manager Location ally Twice a day; Duration: 5 day(s) 03/10/2024 Active traMADol HCl 50 MG 1 tablet as needed Orally Once a day ass needed 03/10/2024 Active Cyclobenzaprine HCl 5 MG 1 tablet at bed time as needed Orally two times a day as needed; Duration: 5 days Active Levocetirizine Dihydrochloride 5 MG 1 tab(s) orally once a day (in the evening) Active Divalproex Sodium 500 MG 1 tablet Orally At Bed Time; Duration: 90 days 04/23/2023 Active Divalproex Sodium ER 250 MG 1 tab(s) ora lly once a day in the morning; Duration: 90 days Active Temazepam 15 MG 1 cap(s) orally at bedtime as needed 12/10/2023 Active Aspirin 81 MG 1 tablet Orally ever y other day; Duration: 30 day(s) Active Benzonatate 200 MG 1 capsule Orally Thr ee times a day 08/23/2024 Active Linzess 72 MCG 2 capsule at least 3 0 minutes before the first meal of the day on an empty stomach Orally Once a day Active Albuterol Sulfate HFA 108 (90 Base) MCG/ACT 1 puff as needed Inhalation every 4 hrs, prn 08/23/2024 Active Acetaminophen 500 MG 2 cap(s) orally loreta ry 8 hours Active Vital Signs Blood pressure systolic 146 mm Hg 08/23/20 24 Blood pressure diastolic 78 mm Hg 024 Heart Rate 95 /min 08/23/2024 Height 65 in 08/23/2024 Weight 202.6 lbs 08/23/2024 BMI 33.71 kg/m2 08/23/2024 Encounters Encounter Location Date Provider Diagnosis [facility] [address] [place], [place] [id number] 08/23/2024 Allison Kulkarnibee Acute URI J06.9 and Bronchitis J40 Assessments Encounter Date Diagnosis (ICD Code) Assessment Notes Treatment Notes Treatment Clinical Notes Section Notes 08/23/2024 Acute URI (ICD-10 - J06.9) 08/23/2024 Bronchitis (ICD-10 - J40) Plan Of Treatment Medication Medication Name Sig Start Date Stop Date Notes Benzonatate 200 MG 1 capsule Orally Thr ee times a day 08/23/2024 Albuterol Sulfate HFA 108 (9 0 Base) MCG/ACT 1 puff as needed Inhalation every 4 hrs, prn 08/23/2024 Next Appt Details Follow Up: prn, Reason: Provider Name:Susana Ricks er, 07/19/2025 02:15:00 PM, [address] [facility] [address] [facility], [address], [place], [place], [id number], Progress Notes * ELVAStephani MONKDOB: 6 (69 yo F)Acc No.[id number]:08/23/2024 Progress Notes Patient: Stephani PUCKETT Provider: REHAN Vaz :1955 A ge:68 Y S ex:Female Date:08/23/2024 Address:[address] [place] [address] [place], [id number] Pcp:Susana Mederos Subjective: * Chief Complaints: * 1 . SORE THROAT, COUGH. * HPI: E NT/respiratory: 68 year old female presents with c/o sore throat. c/o cough P t presents today with c/o cough and sore throat. Pt sts that she is not producing any sputum. Pt sts that she has been coughing for a month or two but sts that the sore throat just started.? * ROS: D ERMATOLOGY: no R bridger. n o H libby. G ASTROENTEROLOGY: no N ausea. n o V omiting. n o D iarrhea.? U ROLOGY: no D ifficulty urinating. n o B lood in urine. * Medical History: C erebral Hemorrhage, 1995, Glaucoma, Memory loss, Overactive bladder, OA, Depression, Chronic left leg wound 2014, followed by wound care, COVID 19 J&J 11/21/2020, 03/02/24 Echo, EF=55%, 03/02/24 JOSSELINE WNL. * Surgical History: B union x3 , Hammer toe , hemorrhoidectomy , Kidney Stones , EGD 06/2021, Colonoscopy 08/2021. * Hospitalization/Major Diagno stic Procedure: C erebral Hemorrhage 1994, UTI- [facility] 10/2014, Lt Knee Pain- [facility] 12/30/2016. * Family History: F ather: , [...] stomach Orally Once a day , Taking Acetaminophen 500 MG Capsule 2 cap(s) orally every 8 hours , Taking Levocetirizine Dihydrochloride 5 MG Tablet 1 tab(s) orally once a day (in the evening) , Taking Divalproex Sodium ER 250 MG [...] orally at bedtime as needed , Taking traMADol HCl 50 MG Tablet 1 tablet as needed Orally Once a day ass needed , Taking Mupirocin 2 % Ointment 1 application Externally Twice a day , Taking Cyclobenzaprine HCl 5 MG Tablet 1 tablet at bedtime as needed Orally two times a day as needed , Taking Omeprazole 20 MG Capsule Delayed Release 1 cap(s) orally once a day , Taking Ondansetron 4 MG Tablet Disintegrating DISSOLVE 1 TABLET BY MOUTH 3 TIMES A DAY NEEDED FOR NAUSEA AND VOMITING , Taking Donepezil HCl 10 MG Tablet TAKE 1 TABLET BY MOUTH ONCE DAILY , Taking Myrbetriq 50 MG Tablet Extended Release 24 Hour TAKE 1 TABLET BY MOUTH ONCE DAILY , Taking Lisinopril 5 MG Tablet 1 tab(s) orally once a day , Taking Venlafaxine HCl ER 150 MG Capsule Extended Release 24 Hour TAKE 1 CAPSULE BY MOUTH ONCE DAILY , Taking buPROPion HCl ER (XL) 300 MG Tablet Extended Release 24 Hour 1 tablet in the morning Orally Once a day , Medication List reviewed and reconciled with the patient * Allergies: P enicillins, Neosporin, Polysporin: rash. Objective: * Vitals: W t:202.6, Temp:*, BP:146/78, HR:95, Nurse:ISABEL, Ht: 65, BMI:33.71. * Examination: E NT/Respiratory: General Appearance: N AD. E ars: a uditory canals normal bilaterally, TM's WNL. N ose : turbinates red, congested. S inuses : non tender bilaterally. O ral cavity : erythema without exudate on pharynx, PND present. N dann : n o cervical lymphadenopathy. H eart : R RR, normal S1 S2, no murmurs. L ungs:? expiratory wheezes, no rales. Assessment: * Assessment: 1. A antonio HUNTI - J06.9 (Primary) 2 . Carlos somers - J40 Plan: * Treatment: Value Reference Range r esults neg * Jodi Dempsey 08/23/2024 11: 20:39 AM > results reviewed w/ pt in office ?LAB: CBC Fingerstick (in house) (Collection Date & Time - 08/23/2024)* Value Reference Range w bc 6.9 3.5 - 10 * l ym 21.9 15 - 50 * m id 6.0 2 - 15 * g ran 72.1 35 - 80 * r bc 4.37 3.5 - 5.5 * h gb 12.7 11.5 - 16.5 * h ct 38.8 35 - 55 * m cv 88.9 75 - 100 * m ch 29.0 25 - 35 * m chc 32.6 31 - 38 * p lat 212 100 - 400 * Jodi Dempsey 08/23/2024 11: 46:10 AM > results reviewed w/ pt in office ?LAB: Covid test (in house) (Collection Date & Time - 08/23/2024)?Negative* Value Reference Range R esult: neg * Jodi Dempsey 08/23/2024 11: 21:22 AM > results reviewed w/ pt in office 2.?Bronchitis? Start Albuterol Sulfate HFA Aerosol Solution, 108 (90 Base) MCG/ACT, 1 puff as needed, Inhalation, every 4 hrs, prn, 1, Refills 1.?? * Procedure Codes: G 2211 Complex e/[place], [address] CAPILLARY BLOOD DRAW, 91367 CBC WITH AUTO DIFF, 63835 Flu Test- Nasal Swab, Modifiers: QW , 25828 COVID TEST IN HOUSE, Modifiers: QW * Follow Up: p rn * Images: Billing Information: * Visit Code: 43668 Office Visit, Est Pt., Level 3. * Procedure Codes: G2211 Complex e/[place]. [address] CAPILLARY BLOOD DRAW. 43231 CBC WITH AUTO DIFF. 65870 Flu Test- Nasal Swab. Modifiers: QW 07707 COVID TEST IN HOUSE. Modifiers: QW * Electronic signature of REHAN Olivares on 07/04/2025 at 12:40 PM EDT Sign off status: Pending * Provider: REHAN Vaz Date: 1 10/24/2023 Generated for Mag eckert/Marianna/Eileen on: 12:40 PM EDT History and Physical Notes * HPI (History of Present Illness) Category Sub-Category Detail Notes Category Not es ENT/respiratory sore throat cough Pt presents today wi th c/o cough and sore throat. Pt sts that she is not producing any sputum. Pt sts that she has been coughing for a month or two but sts that the sore throat just started Examination Category Sub-Category Detail Notes Category Not es ENT/Respiratory Oral cavity : erythema without exudate on pharynx, PND present Sinuses : non tender bilateral ly Ears: auditory canals norm al bilaterally, TM's WNL Neck : no cervical lymphade nopathy Heart : RRR, normal S1 S2, n o murmurs Lungs: expiratory wheezes, no rales General Appearance: NAD Nose : turbinates red, bi ested
--- OUTSIDE RECORDS SUMMARY | 2024-09-29 10:50 | XMS_ITS ---
Author Organization [facility] Address [address] [id number] Care Team Providers Care Parasitology Teacher Name Role Phone Susana Mederos Primary Care Provider [phone] Allison Duggan Unavailable [phone] Allergies Allergen (clinical drug ingredient) Drug/Non Drug Allergy documented on EMR Reaction Allergy Type Onset Date Status Neosporin Unknown Drug Allergy Active Polysporin rash Drug Allergy Active Substance with penicillin structure and antibacterial mechanism of action (substance) Penicillins Unknown Drug Allergy Active Results Component Value Reference Range Notes Influenza Screen (in house) Reviewed date:10/01/2024 10:03:26 PM Interpretation:neg Performing Lab: Notes/Report: neg results neg CBC Fingerstick (in house) Reviewed date:10/01/2024 10:02:59 PM Interpretation: Performing Lab: Notes/Report: wbc 7.9 3.5 - 10 lym 28.5 15 - 50 mid 6.8 2 - 15 gran 64.7 35 - 80 rbc 5.01 3.5 - 5.5 hgb 14.5 11.5 - 16.5 hct 44.4 35 - 55 mcv 88.7 75 - 100 mch 28.9 25 - 35 mchc 32.6 31 - 38 plat 165 100 - 400 Covid test (in house) Reviewed date:10/01/2024 10:03:13 PM Interpretation:neg Performing Lab: Notes/Report: neg Result: neg CXR Reviewed date:10/05/2024 11:34:15 AM Interpretation:unremarkable Performing Lab: Notes/Report: unremarkable REASON FOR VISIT possible bronchitis Medications Medication SIG (Take, Route, Frequency, Duration) Notes Start Date End Date Status Cyclobenzaprine HCl 5 MG 1 tablet at bed time as needed Orally two times a day as needed; Duration: 5 days Active Myrbetriq 50 MG TAKE 1 TABLET BY MITESH TH ONCE DAILY; Duration: 30 Active Donepezil HCl 10 MG TAKE 1 TABLET BY MITESH TH ONCE DAILY; Duration: 90 Active Ondansetron 4 MG DISSOLVE 1 TABLET BY MOUTH 3 TIMES A DAY NEEDED FOR NAUSEA AND VOMITING; Duration: 7 Active Omeprazole 20 MG 1 cap(s) orally once a day; Duration: 90 days Active Mupirocin 2 % 1 application Tub Operator ally Twice a day; Duration: 5 day(s) 03/10/2024 Active traMADol HCl 50 MG 1 tablet as needed Orally Once a day ass needed 03/10/2024 Active Temazepam 15 MG 1 cap(s) orally at bedtime as needed 12/10/2023 Active Aspirin 81 MG 1 tablet Orally ever y other day; Duration: 30 day(s) Active Divalproex Sodium 500 MG 1 tablet Orally At Bed Time; Duration: 90 days 04/23/2023 Active Doxycycline Monohydrate 100 MG 1 capsule Orally Once a day Active Divalproex Sodium ER 250 MG 1 tab(s) ora lly once a day in the morning; Duration: 90 days Active Levocetirizine Dihydrochloride 5 MG 1 tab(s) orally once a day (in the evening) Active Acetaminophen 500 MG 2 cap(s) orally loreta ry 8 hours Active Linzess 72 MCG 2 capsule at least 3 0 minutes before the first meal of the day on an empty stomach Orally Once a day Active Medrol 4 MG as directed orally daily; Duration: 6 days 09/29/2024 Active Albuterol Sulfate HFA 108 (90 Base) MCG/ACT 1 puff as needed Inhalation every 4 hrs, prn 08/23/2024 Active Albuterol Sulfate HFA 108 (90 Base) MCG/ACT 1 puff as needed Inhalation every 4 hrs, prn 09/29/2024 Active Benzonatate 200 MG 1 capsule Orally Thr ee times a day 08/23/2024 Active buPROPion HCl ER (XL) 300 MG 1 tablet in the morning Orally Once a day; Duration: 30 day(s) Active Venlafaxine HCl ER 150 MG TAKE 1 CAPSULE BY MOUTH ONCE DAILY; Duration: 90 days Active Lisinopril 5 MG 1 tab(s) orally once a day; Duration: 90 days Active Vital Signs Blood pressure systolic 150 mm Hg 09/29/19 25 Blood pressure diastolic 86 repeat 130 mm Hg Heart Rate 66 /min 09/29/2024 Height 65 in 09/29/2024 Weight 198.2 lbs 09/29/2024 BMI 32.98 kg/m2 09/29/2024 Encounters Encounter Location Date Provider Diagnosis [facility] [address] [facility] [address] [facility] [address] [place] [id number] 09/29/2024 Allison Urban Bronchitis J40 Assessments Encounter Date Diagnosis (ICD Code) Assessment Notes Treatment Notes Treatment Clinical Notes Section Notes 09/29/2024 Bronchitis (ICD-10 - J40) Plan Of Treatment Medication Medication Name Sig Start Date Stop Date Notes Doxycycline Monohydrate 100 MG 1 capsule Orally Once a day Medrol 4 MG as directed orally d aily; Duration: 6 days 09/29/2024 Albuterol Sulfate HFA 108 (9 0 Base) MCG/ACT 1 puff as needed Inhalation every 4 hrs, prn 09/29/2024 Next Appt Details Follow Up: prn, Reason: Provider Name:Susana Ricks er, 07/19/2025 02:15:00 PM, [facility] [facility], [address], [place], [id number], Progress Notes * Stephani ALDANADOB: 6 (69 yo F)Acc No.[id number]:09/29/2024 Progress Notes Patient: Stephani PUCKETT Provider: REHAN Vaz :1955 A ge:68 Y S ex:Female Date:09/29/2024 Address:[facility] [address] [id number] Pcp:Susana Mederos Subjective: * Chief Complaints: * 1 . Possible bronchitis. * HPI: E NT/respiratory: 68 year old female presents with c/o cough. c/o nasal congestion P t sts she has been on an antibiotic and sts everything is finally breaking up and sts when she does have drainage it is green. Pt sts it has been hard for her breathe as well. c/o ear pain P t sts her ears have been felling full. c/o headache. c/o body aches. Denies : sore throat. D enies : dizziness. Pt is here today for possible bronchitis. Pt sts she has been very clammy feeling and sts that her bp has been runnng high. Pt sts she does not check it at home, but sts she went to a doctor the other day where it was high as well and they told her something needs to be done about it. * ROS: D ERMATOLOGY: no R bridger. [...] stic Procedure: [facility] e[facility] 1994[facility] [place] [facility] [place] * Family History: F ather: , [...] smoking status: no. * Medications: T aking Doxycycline Monohydrate 100 MG Capsule 1 capsule Orally Once a day , Taking Linzess 72 MCG Capsule 2 capsule at [...] morning Orally Once a day , Taking Benzonatate 200 MG Capsule 1 capsule Orally Three times a day , Taking Albuterol Sulfate HFA 108 (90 Base) MCG/ACT Aerosol Solution 1 puff as needed Inhalation every 4 hrs, prn , Medication List reviewed and reconciled with the patient * Allergies: P enicillins, Neosporin, Polysporin: rash. Objective: * Vitals: W t:198.2, Temp:99.5, BP:150/86 repeat 130/80, HR:66, O2 Sat:97% on RA, Nurse:[facility], Ht: 65, BMI:32.98. * Examination: E NT/Respiratory: General Appearance: N [...] wheezes, no rales. Assessment: * Assessment: 1. B rongabrielatis - J40 (Primary) Plan: * Treatment: Value Reference Range r esults neg * Wanda Collier 09/29/2024 3:30: 36 PM > , Provider reviewed results while patient in office.Allison Duggan 10/01/2024 10:03:20 PM > ?LAB: CBC Fingerstick (in house) (Collection Date & Time - 09/29/2024)* Value Reference Range w bc 7.9 3.5 - 10 * l ym 28.5 15 - 50 * m id 6.8 2 - 15 * g ran 64.7 35 - 80 * r bc 5.01 3.5 - 5.5 * h gb 14.5 11.5 - 16.5 * h ct 44.4 35 - 55 * m cv 88.7 75 - 100 * m ch 28.9 25 - 35 * m chc 32.6 31 - 38 * p lat 165 100 - 400 * Wanda Collier 09/29/2024 3:09: 58 PM > , Provider reviewed results while patient in office.Allison Duggan 10/01/2024 10:02:54 PM > ?LAB: Covid test (in house) (Collection Date & Time - 09/29/2024)?neg* Value Reference Range R esult: neg * Wanda Collier 09/29/2024 3:30: 59 PM > , Provider reviewed results while patient in office.Allison Duggan 10/01/2024 10:03:06 PM > ?Imaging: CXR (Performed Date - 09/29/2024)?unremarkable* Allison Duggan 10/03/2024 2: 43:53 PM > Please let patient know her CXR showed no pneumoniaNoalexanderEmber 10/05/2024 11:34:04 AM > Pt informed * Procedure Codes: [address] [place], [address] CAPILLARY BLOOD DRAW, 79646 CBC WITH AUTO DIFF, 38566 Flu Test- Nasal Swab, Modifiers: QW , 91852 COVID TEST IN HOUSE, Modifiers: QW * Follow Up: p rn * Images: Billing Information: * Visit Code: 13902 Office Visit, Est Pt., Level 3. * Procedure Codes: [address] [place]. [address] CAPILLARY BLOOD DRAW. 42345 CBC WITH AUTO DIFF. 95436 Flu Test- Nasal Swab. Modifiers: QW 22058 COVID TEST IN HOUSE. Modifiers: QW * Electronic signature of REHAN Olivares on 07/04/2025 at 12:40 PM EDT Sign off status: Pending * Provider: REHAN Vaz Date: 0 09/29/2024 Generated for Mag eckert/Marianna/eTransmitting on: 1 12:40 PM EDT History and Physical Notes * HPI (History of Present Illness) Category Sub-Category Detail Notes Category Not es ENT/respiratory sore throat Pt is here t clive for possible bronchitis. Pt sts she has been very clammy feeling and sts that her bp has been runnng high. Pt sts she does not check it at home, but sts she went to a doctor the other day where it was high as well and they told her something needs to be done about it ear pain Pt sts her ears have been felling full cough headache nasal congestion Pt sts she has been on an antibiotic and sts everything is finally breaking up and sts when she does have drainage it is green. Pt sts it has been hard for her breathe as well dizziness body aches Examination Category Sub-Category Detail Notes Category Not [...]
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
--- OUTSIDE RECORDS SUMMARY | 2025-02-26 09:30 | XMS_ITS ---
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 :1955 A ge:69 Y S ex:Female Date:02/26/2025 Address:[facility] [address] [id number] Subjective: * Chief Complaints: * 1 . [...] stic Procedure: C erebral Hemorrhage 1994, UTI- [facility] 10/2014, Lt Knee Pain- [facility] [place] [place] 12/30/2016. * Family History: F ather: , [...] M.D. Date: 0 02/26/2025 Generated for Mag eckert/Marianna/Eileen on: 1 12:41 PM EDT History and Physical Notes * HPI (History of Present Illness) Category Sub-Category Detail Notes Category Not es HPI Patient is here today for Pt is here today for a 4 month check up
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
--- OUTSIDE RECORDS SUMMARY | 2025-04-16 09:00 | XMS_ITS ---
Author Organization [facility] Address [address] [id number] Care Team Providers Care Building Appraiser Name Role Phone Susana Mederos Primary Care Provider [phone] Allergies Allergen (clinical drug ingredient) Drug/Non Drug [...] Interpretation:Normal Performing Lab: Notes/Report: Test performed by [facility] , [address], [place] [address] Blayne Miller MD, Silicator CLIA: [id number] Sodium 144 135-145 mmol/L Potassium 4.4 3.5-5.3 [...] W/U Status Risk Notes Problem Neck pain (00192208) Neck pain (M54.2) Active confirmed Vital Signs Blood pressure systolic 144 mm Hg 04/16/20 25 Blood pressure diastolic 82 mm Hg 025 Heart Rate 89 /min 04/16/2025 Height 65 in 04/16/2025 Weight 202.8 lbs 04/16/2025 BMI 33.74 kg/m2 04/16/2025 Encounters Encounter Location Date Provider Diagnosis [facility] [facility] [address] [facility] [address] [place] [id number] 04/16/2025 Susana Mederos Leg pain, bilateral M79.604 [...] Linzess 72 MCG TAKE 1 CAPSULE BY [facility] ONCE DAILY; Duration: 30 methylPREDNISolone 4 MG as directed Orally 04/16/2025 Next Appt Details Follow Up: 2 M, Reason: Provider Name:Susana Ricks er, 07/19/2025 02:15:00 PM, [address] [facility] 36 [facility], [address], [place], [id number], Progress Notes * Stephani ALDANADOB: 6 (69 yo F)Acc No.[id number]:04/16/2025 Progress Notes Patient: Azalea ANN Stephani Provider: Susana Mederos M.D. :1955 A ge:69 Y S ex:Female Date:04/16/2025 Address:[address] [place], [id number] Subjective: * Chief Complaints: * 1 . [...] stic Procedure: [facility], [facility] K[facility]- [facility] 12/30/2016. * Family History: F ather: , [...] * Images: Billing Information: * Visit Code: 85527 Office Visit, Est Pt., Level 4. * Procedure Codes: G2211 Complex e/m visit add on. 1036F TOBACCO NON-USER. G8950 PREHTN/HTN BP DOC INDCD F/U DOC. G8753 MOST RECENT SYSTOLIC BP >= 140MM HG. G8754 MOST RECENT DIASTOLIC BP < 90MM HG. * Electronic signature of Susana Mederos MD on 07/04/2025 at 12:41 PM EDT Sign off status: Pending * Provider: Susana Mederos M.D. Date: 0 04/16/2025 Generated for Aracelyi tomeka/Marianna/eTransmitting on: 1 12:41 PM EDT History and [...]
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
--- OUTSIDE RECORDS SUMMARY | 2025-07-04 12:40 | XMS_ITS | Encounter Summary ---
Author Organization Healthcare Address [address] 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 COORDINATOR) to steady your nerves or to [...] Description 10/03/2025 1:00 PM EST Procedure Visit [place] [facility] [address] [place] [address] Jane Rojas MD [address] [facility] [address] [place] [address] documented as of this encounter Visit Diagnoses Not on filedocumented in this encounter Additional Health Concerns Assessment Noted Time A fall risk assessment has been complete d for the patient 03/23/2023 3:02 PM EDT A Body Mass Index follow-up plan has been documented for the patient 03/24/2023 7:31 AM EDT documented as of this encounter Care Teams Complaint Clerk Relationship Specialty Start Date End Date Vivek Mederos MD [address] [place] [address] PCP - General 05/15/21 Genevieve Santos PA [address] [place] [address] Physician Banquet Kitchen Supervisor Neurology 05/15/21 documented as of this encounter
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
--- OUTSIDE RECORDS SUMMARY | 2025-07-04 12:41 | XMS_ITS | Encounter Summary ---
Author Organization Healthcare Address [address] [place] [address] Care Team Providers Care Water Control Supervisor Name Role Phone Vivek Mederos MD Primary Care Provider [phone] Genevieve Santos Unavailable [phone] Encounter Details Date Type Department Care Team (Late Contact Info) Description 01/05/2022 Lab Requisition [facility] [address] [place] [address] Sanjeev Rod MD [address] [place] [address] Encounter for general adult medical [...] Description 10/03/2025 1:00 PM EST Procedure Visit [place] [facility] [address] [place] [address] Jane Rojas MD [address] [place] [address] documented as of this encounter Procedures Procedure Name Priority Date/Time Associated Diagnosis Comments MULTI DRUG RESISTANCE TEST Routine 01/05/2022 7:00 PM EDT Encounter for general adult medical examination without abnormal findings documented in this encounter Results * Multi Drug Resistance Test (01/05/2022 7:00 PM EDT) Culture No growth at day 2 01/07/2022 9:35 AM EDT [facility] Swab (Nares and Amina Rectal) 01/05/2022 7:00 PM EDT 01/05/2022 9:16 PM EDT us Sanjeev Newsome MD LAB MICROBIOLOGY - GENERAL ORDERABLES Final Result [facility] [address] [place] [address] documented in this encounter Visit Diagnoses Diagnosis Encounter for general adult medical examination without abnormal findings documented in this encounter Additional Health Concerns Assessment Noted Time A fall risk assessment has been complete d for the patient 05/15/2021 4:08 PM EDT documented as of this encounter Care Teams Water Control Supervisor Relationship Specialty Start Date End Date Vivek Mederos MD [address] [place] [address] PCP - General 05/15/21 Genevieve Santos PA [address] [place] [address] Physician Software Reliability Engineer Neurology 05/15/21 documented as of this encounter
--- OUTSIDE RECORDS SUMMARY | 2025-07-04 12:41 | XMS_ITS | Encounter Summary ---
Author Organization [facility] Address [address] [place] [address] Care Team Providers Care Hull Drafter Name Role Phone Vivek Mederos MD Primary Care Provider [phone] Genevieve Santos Unavailable [phone] Encounter Details Date Type Department Care Team (Late st Contact Info) Description 07/04/2025 Orders Only [facility] Virtual Dept. 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 nerves or to get [...] Description 10/03/2025 1:00 PM EST Procedure Visit [place] [facility] [address] [place] [address] Jane Rojas MD [address] [place] [address] documented as of this encounter [...] documented as of this encounter Care Teams Hull Drafter Relationship Specialty Start Date End Date Vivek Mederos MD [address] [place] [address] PCP - General 05/15/21 Genevieve Santos PA [address] [place] [address] Physician Floor Plan Adjuster Neurology 05/15/21 documented as of this encounter
--- OUTSIDE RECORDS SUMMARY | 2025-07-04 12:41 | XMS_ITS | Encounter Summary ---
Author Organization Healthcare Address [address] [place] [address] Care Team Providers Care Locomotive Switch Operator Name Role Phone Vivek Mederos MD Primary Care Provider [phone] Genevieve Santos Unavailable [phone] Encounter Details Date Type Department Care Team (Latest Contact Info) Description 07/03/2025 Travel Social History Tobacco Use Types Packs/Day [...] drink first t nolvia in the morning (EYE-DREDGE HAND) to steady your nerves or to get [...] Description 10/03/2025 1:00 PM EST Procedure Visit [facility] [address] [place] [address] Jane Rojas MD [address] [place] [address] documented as of this encounter [...] documented as of this encounter Care Teams Locomotive Switch Operator Relationship Specialty Start Date End Date Vivek Mederos MD [address] [place] [address] PCP - General 05/15/21 Genevieve Santos PA [address] [place] [address] Physician Admitting Counselor Neurology 05/15/21 documented as of this encounter
--- OUTSIDE RECORDS SUMMARY | 2025-07-04 12:42 | XMS_ITS | Clinical Summary ---
Author Organization [facility] Address [address] [place] [address] Care Team Providers Care Stockroom Selector Name Role Phone Vivek Mederos MD Primary Care Provider [phone] Genevieve Santos Unavailable [phone] Allergies Active Allergy Reactions Criticality Noted [...] (eight) hours if needed. 10/02/19 21 Active levocetirizine (Xyzal) 5 MG tablet [...] mouth 1 (one) time each day. 09/14/19 Active temazepam (Restoril) 15 MG capsule Take 1 capsule (15 mg) by mouth every night. 12/24/19 Active acetaminophen (Tylenol) 500 MG tablet Take 2 tablets (1,000 mg total) by mouth every 8 (eight) hours. 100 tablet 01/10/20 Active docusate sodium (Colace) 250 MG capsule Take 1 capsule (250 mg total) by mouth 2 (two) times a day. 60 capsule 01/10/20 Active gabapentin (Neurontin) 100 MG capsule Take 1 capsule (100 mg total) by mouth 3 (three) times a day. 30 capsule 01/10/20 Active Additional Information Patient not taking.Reported on 07/03/2025 traMADol (Ultram) 50 MG tablet 04/14/20 Active lisinopril 5 MG tablet 04/08/20 Active fluticasone (Flonase) 50 MCG/ACT nasal spray 03/22/20 Active Linzess 72 MCG capsule capsule 04/16/20 Active albuterol 108 (90 Base) MCG/ACT inhaler 04/17/20 Active azelastine (Astelin) 0.1 % nasal spray if needed. 04/17/20 23 Active cefuroxime (Ceftin) 500 MG tablet 08/09/20 Active donepezil (Aricept) 10 MG tablet Take [...] DAILY 90 tablet 2 04/27/20 25 Active DULoxetine (Cymbalta) [address] capsule 06/08/20 25 Active risedronate (Actonel) 35 MG tablet 1 tablet at least 30 minutes before the first food or drink, other than water, of the day Orally once a week; Duration: 30 days 05/16/20 25 Active buPROPion XL (Wellbutrin XL) 300 MG 24 hr tablet 04/23/20 25 Active venlafaxine XR (Effoxor-XR) 150 MG 24 hr capsule Take 1 capsule (150 mg) by mouth every night. 05/02/20 025 Discontinu ed(Per Patient Report) traZODone (Desyrel) 150 MG tablet Take 1 tablet (150 mg) by mouth every night. 025 Discontinu ed(Per Patient Report) buPROPion XL (Wellbutrin XL) 150 MG 24 hr tablet 10/27/19 025 Discontinu ed(Per Patient Report) Hospital, Clinic, or Other Facility Administered Medication [...] (06/30/2022): Added automatically from request for surgery [id number] Closed right radial fracture 01/16/2022 Overview (01/27/2022): [...] right index finger fracture (01/21) Follow-up with Rosalei Villavicencio on 02/04/22 - If patient is [...] Encounters Date Type Department Care Team Description 07/04/2025 Orders Only Radiology Virtual Dept. 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) to steady your nerves or to get [...] Pulse 84 07/03/2025 1:13 PM EDT Temperature 36.9 C (98.5 F) 08/09/2024 12:51 PM EST Respiratory Rate 20 07/03/2025 1:13 PM EDT Oxygen Saturation 97% 07/03/2025 1:13 PM EDT Inhaled Oxygen Concentration - - Weight 89.1 kg (196 lb 8 oz) 07/03/2025 1:13 PM EDT Height 167.6 cm (5' 6 ) 07/03/2025 1:13 PM EDT Body Mass Index 31.72 07/03/2025 1:13 PM EDT Plan of Treatment Upcoming Encounters Date Type Department Care Team (Late st Contact Info) Description 10/03/2025 1:00 PM EST Procedure Visit [place] [facility] [address] [place] [id number] Jane Rojas MD [address] [place] [address] Health Maintenance Due Date Last Done Comments Dental Oral Exam 1955 Dental Prophylaxis 1955 Dental X-Ray: Bitewings 1955 Dental X-Ray: Full Mouth 1955 [facility]-Bone Density Scan 1955 [facility]Medicare Annual Wellness (AWV) 1955 [facility]-/Child/Adol SDOH Screenings 1955 [facility]- SDOH Screenings 11/15/1973 [facility]-Adult SDOH Screenings 11/15/1973 CT Colonography 11/15/2000 Colonoscopy 11/15/2000 FIT-DNA 11/15/2000 FIT 11/15/2000 FOBT 11/15/2000 Sigmoidoscopy 11/15/2000 [facility]-Colorectal Cancer Screening 11/15/2000 [facility]-Breast Cancer Screening 11/15/2005 [id number] Vaccine ( season) 2025 06/22/2022, 12/31/2021, 07/17/2021, Additional history [...] or Completed 07/28/2024 [facility]-Obesity Intervention Completed 025, 03/28/2025, 03/15/2025, Additional history exists HPV Vaccines Aged Out [...] this topic Medical Devices Implanted Type Area Oxygen Equipment Technician Device Identifier Shelf Expiration Date Model / Serial / Lot Cement With Tobramycin - [id number] Implanted:Qty: 3 on 01/06/2023 by Reese Galindo MD at [facility] Cement Right: Knee [employer] [facility] [place]-[id number] 04/12/2024 [id number] / / [id number] Distalfemur [id number] - [id number] Implanted:Qty: 1 on 01/06/2023 by Reese Galindo MD at [facility] Knee Right: Knee [facility] [facility]-474994 03/25/2029 [id number] / / [id number] Midsection Male-Female 90mm - [id number] Implanted:Qty: 1 on 01/06/2023 by Reese Galindo MD at [facility] Knee Right: Knee [facility] [facility]-350991 02/25/2029 [id number] / / [id number] Eleos Tibial Hinge W/O Rotational Stop - [id number] Implanted:Qty: 1 on 01/06/2023 by Reese Galindo MD at [facility] Knee Right: Knee [facility] [facility]-170918 04/22/2030 [id number] / / [id number] Tibial Poly Spacer 8mm - [id number] Implanted:Qty: 1 on 01/06/2023 by Reese Galindo MD at [facility] Knee Right: Knee [facility]-177893 02/13/2030 [id number] / / [id number] Distalfemur Axial Pin One Size - [id number] Implanted:Qty: 1 on 01/06/2023 by Reese Galindo MD at [facility] Knee Right: Knee [facility] [facility]-669847 08/19/2030 [id number] / / [id number] Nail Femoral Retro T2 Alpha 10mm X 360mm - [id number] Implanted:Qty: 1 on 01/08/2022 by Julian Gallego MD at [facility] Nail Left: Leg [facility] [facility] ([employer])-573634 09/12/2031 2339-1036S / / Plate Crosslock Std Dvr Lt - [id number] Implanted:Qty: 1 on 01/08/2022 by Julian Gallego MD at [facility] Plate Left: Wrist [employer]-229672 01/08/2023 [id number] / / Plate Tibia Prox 3.5 12h 185m Left - [id number] Implanted:Qty: 1 on 01/08/2022 by Julian Gallego MD at [facility] Plate Left: Leg [employer]-177265 01/08/2023 239.943 / / Plate 4.5mm Tiva Cond 14hole 301mm L - [id number] Implanted:Qty: 1 on 01/08/2022 by Julian Gallego MD at [facility] Plate Left: Leg [employer] [place]-976089 01/08/2023 04.124.415 / / Plate Lcp 3.5mm 215mm 16h - S. - [id number] Implanted:Qty: 1 on 03/04/2022 by Julian Gallego MD at [facility] Plate Right: Femur Synthes [facility]-500389 03/04/2023 223.661 / . / Nonlock Lp 2.7mm X 14mm - [id number] Implanted:Qty: 1 on 01/08/2022 by Julian Gallego MD at [facility] Screw Left: Wrist [employer]-000317 01/08/2023 [id number] / / Nonlock Lp 2.7mm X 15mm - [id number] Implanted:Qty: 2 on 01/08/2022 by Julian Gallego MD at [facility] Screw Left: Wrist [employer]-050684 01/08/2023 [id number] / / Nonlock Lp 2.7mm X 24mm - [id number] Implanted:Qty: 1 on 01/08/2022 by Julian Gallego MD at [facility] Screw Left: Wrist [employer]-265371 01/08/2023 [id number] / / Screw 2.7mm Ti Locking Square 14mm - [id number] Implanted:Qty: 1 on 01/08/2022 by Julian Gallego MD at [facility] Screw Left: Wrist [employer]-530549 01/08/2023 [id number] / / Screw 2.7mm Ti Locking Square 16mm - [id number] Implanted:Qty: 4 on 01/08/2022 by Julian Gallego MD at [facility] Screw Left: Wrist [employer]-403867 01/08/2023 [id number] / / Screw 2.7mm Tilocking Square 18mm - [id number] Implanted:Qty: 1 on 01/08/2022 by Julian Gallego MD at [facility] Screw Left: Wrist [employer] Inc-479432 01/08/2023 [id number] / / Screw Locking Adv T2 T2 D5xl80 - [id number] Implanted:Qty: 2 on 01/08/2022 by Julian Gallego MD at [facility] Screw Left: Leg [employer])-737410 10/13/2031 2361-5080S / / Screw Locking Adv T2 T2 D5xl60 - [id number] Implanted:Qty: 1 on 01/08/2022 by Julian Gallego MD at [facility] Screw Left: Leg [employer] [facility] ([facility])-860189 09/12/2031 2361-5060S / / Screw Locking Adv T2 T2 D5xl75 - [id number] Implanted:Qty: 1 on 01/08/2022 by Julian Gallego MD at [facility] Screw Left: Leg [facility] ([facility])-574797 11/11/2031 2361-5075S / / Screw Locking T2 D5x35 - [id number] Implanted:Qty: 1 on 01/08/2022 by Julian Gallego MD at [facility] Screw Left: Leg [employer] [facility] ([facility])-789649 08/12/2031 2360-5035S / / Screw Locking T2 D5x37.5 - [id number] Implanted:Qty: 1 on 01/08/2022 by Julian Gallego MD at [facility] Screw Left: Leg [employer] [facility] ([facility])-733026 09/12/2031 2360-5037S / / Screw 3.5mm Cortex Low Profile Selftap 80mm - [id number] Implanted:Qty: 1 on 01/08/2022 by Julian Gallego MD at [facility] Screw Left: Leg [employer] [place]-966552 01/08/2023 02.206.080 / / Screw 3.5mm Star Lock Selftap 80mm - [id number] Implanted:Qty: 2 on 01/08/2022 by Julian Gallego MD at [facility] Screw Left: Leg [employer] [place]-915171 01/08/2023 212.128 / / Screw 3.5mm Cortex Low Profile Selftap 65mm - [id number] Implanted:Qty: 1 on 01/08/2022 by Julian Gallego MD at [facility] Screw Left: Leg [employer] [place]-567598 01/08/2023 02.206.065 / / Screw Va Locking John 5mm 25mm - [id number] Implanted:Qty: 1 on 01/08/2022 by Julian Gallego MD at [facility] Screw Synthes [facility]-844034 01/08/2023 42.231 .625 / / Screw 3.5mm Cortex Selftap 28mm - S. - [id number] Implanted:Qty: 1 on 03/04/2022 by Julian Gallego MD at [facility] Screw Right: Femur [employer] [place]-071611 03/04/2023 204.828 / . / Screw 3.5mm Cortex Selftap 40mm - S. - [id number] Implanted:Qty: 1 on 03/04/2022 by Julian Gallego MD at [facility] Screw Right: Femur [employer] [place]-206236 03/04/2023 204.840 / . / Screw 3.5mm Star Lock Selftap 24mm - S. - [id number] Implanted:Qty: 1 on 03/04/2022 by Julian Gallego MD at [facility] Screw Right: Femur [employer] [place]-272191 03/04/2023 212.108 / . / Screw 3.5mm Star Lock Selftap 40mm - S. - [id number] Implanted:Qty: 1 on 03/04/2022 by Julian Gallego MD at [facility] Screw Right: Femur [employer] [place]-438958 03/04/2023 212.117 / . / Screw 4.0mm Cancellous Full Thread 50mm - S. - [id number] Implanted:Qty: 1 on 03/04/2022 by Julian Gallego MD at [facility] Screw Right: Femur [employer] [place]-608004 03/04/2023 206.050 / . / Screw 4.0mm Cancellous Full Thread 45mm - S. - [id number] Implanted:Qty: 1 on 03/04/2022 by Julian Gallego MD at [facility] Screw Right: Femur [employer] [place]-834435 03/04/2023 206.045 / . / Stem Str Fluted 28mm Collar [id number] - [id number] Implanted:Qty: 1 on 01/06/2023 by Reese Galindo MD at [facility] Stem Right: Knee [employer] Inc-246767 09/30/2023 KL-[id number] / / [id number] K-Wire Dual Trocar 045 X 152mm - [id number] Implanted:Qty: 2 on 01/06/2022 by Janice Stallworth MD at [facility] Wire [employer]-450766 12/09/2024 1600-645 / / [id number] Vip Vascular Closure Device 6 Fr - [id number] Implanted:Qty: 1 on 01/04/2022 by Paolo Pollack MD at [facility] [employer]-213258 10/13/2022 938621 / / [id number] Plug Amplatzer Vasc 5mm - [id number] Implanted:Qty: 1 on 01/04/2022 by Paolo Pollack MD at [facility] [employer]-663940 07/13/2026 8-TWP950-159 / / [id number] Cement Palacos - [id number] Implanted:Qty: 1 on 01/04/2022 by Pippa Winslow MD at [facility] Left: Femur Herae[employer] Inc-306119 07/13/2024 3880750 / / [id number] Screw Schanz 5mm X 200mm - [id number] Implanted:Qty: 8 on 01/04/2022 by Pippa Winslow MD at [facility] Left: Femur [employer] [place]-453869 294.56 / / Christiano Carbon Fbr 11.0mm 350mm - [id number] Implanted:Qty: 1 on 01/04/2022 by Pippa Winslow MD at [facility] Left: Femur [employer] [place]-438330 394.86 / / Clamp Cmbntn Lg Mri Safe None - [id number] Implanted:Qty: 2 on 01/04/2022 by Pippa Winslow MD at [facility] Left: Femur [employer] [place]-205479 390.005 / / Clamp Adj Lg Mri Safe None - [id number] Implanted:Qty: 8 on 01/04/2022 by Pippa Winslow MD at [facility] Left: Femur [employer] [place]-901653 390.008 / / Christiano Carbon Fbr 11.0mm 400mm - [id number] Implanted:Qty: 1 on 01/04/2022 by Pippa Winslow MD at [facility] Left: Femur [employer] [place]-171931 394.87 / / Screw Evos 2.4mm Cortex T7 Selftap 38mm - [id number] Implanted:Qty: 1 on 01/07/2022 by Julian Gallego MD at [facility] Right: Femur [employer] Inc-404245 [id number] / / Screw Evos 2.4mm Cortex T7 Selftap 44mm - [id number] Implanted:Qty: 1 on 01/07/2022 by Julian Gallego MD at [facility] Right: Femur [employer] Inc-310843 [id number] / / Screw Evos 2.4mm Cortex T7 Selftap 46mm - [id number] Implanted:Qty: 1 on 01/07/2022 by Julian Gallego MD at [facility] Right: Femur [employer] Inc-781166 [id number] / / Screw Evos 2.4mm Cortex T7 Selftap 55mm - [id number] Implanted:Qty: 1 on 01/07/2022 by Julian Gallego MD at [facility] Right: Femur [employer] Inc-925655 [id number] / / Screw Evos 2.4mm Cortex T7 Selftap 65mm - [id number] Implanted:Qty: 1 on 01/07/2022 by Julian Gallego MD at [facility] Right: Femur [employer] Inc-410302 [id number] / / Screw Evos 2.7mm Cortex T8 Selftap 75mm - [id number] Implanted:Qty: 1 on 01/07/2022 by Julian Gallego MD at [facility] Right: Femur [employer] Inc-524339 [id number] / / Screw Va Locking John Sterile 5mm 95mm - [id number] Implanted:Qty: 1 on 01/07/2022 by Julian Gallego MD at [facility] Right: Femur [employer] [place]-819535 05/13/2030 42.231.695S / / [id number] Cement Palacos - [id number] Implanted:Qty: 1 on 01/07/2022 by Julian Gallego MD at [facility] Right: Femur [employer]ae[employer] Inc-555005 12/11/2024 2880012 / / [id number] Screw Evos 2.4mm Cortex T7 Selftap 80mm - [id number] Implanted:Qty: 3 on 01/07/2022 by Julian Gallego MD at [facility] Right: Femur [employer] Inc-820654 [id number] / / Plate 4.5mm Tiva Cond 14hole 301mm R - [id number] Implanted:Qty: 1 on 01/07/2022 by Julian Gallego MD at [facility] Right: Femur [employer] [place]-720435 04.124.414 / / Screw 4.5mm Ti Cortex Selftap 38mm - [id number] Implanted:Qty: 2 on 01/07/2022 by Julian Gallego MD at [facility] Right: Femur [employer] [place]-087246 414.838 / / Screw Va Locking John 5mm 85mm - [id number] Implanted:Qty: 2 on 01/07/2022 by Julian Gallego MD at [facility] Right: Femur [employer] [place]-376225 42.231.685 / / Screw 4.5mm Ti Cortex Selftap 32mm - [id number] Implanted:Qty: 1 on 01/07/2022 by Julian Gallego MD at [facility] Right: Femur [employer] [place]-498266 414.832 / / Screw Va Locking John 5mm 90mm - [id number] Implanted:Qty: 1 on 01/07/2022 by Julian Gallego MD at [facility] Right: Femur [employer] [place]-893476 42.231.690 / / Screw 4.5mm Ti Cortex Selftap 38mm - [id number] Implanted:Qty: 1 on 01/07/2022 by Julian Gallego MD at [facility] Right: Femur [employer] [place]-321591 414.838 / / Washer 2.7mm Screw - [id number] Implanted:Qty: 1 on 01/07/2022 by Julian Gallego MD at [facility] Right: Femur [employer] Inc-433244 [id number] / / Screw 3.5mm Cortex Selftap 30mm - [id number] Implanted:Qty: 1 on 01/08/2022 by Julian Gallego MD at [facility] Left: Leg [employer] [place]-803522 01/08/2023 204.830 / / Screw 3.5mm Cortex Selftap 34mm - [id number] Implanted:Qty: 2 on 01/08/2022 by Julian Gallego MD at [facility] Left: Leg [employer] [place]-625876 01/08/2023 204.834 / / Screw 3.5mm Cortex Selftap 32mm - [id number] Implanted:Qty: 2 on 01/08/2022 by Julian Gallego MD at [facility] Left: Leg [employer] [place]-627866 01/08/2023 204.832 / / Screw 3.5mm Star Lock Selftap 75mm - [id number] Implanted:Qty: 1 on 01/08/2022 by Julian Gallego MD at [facility] Left: Leg [employer] [place]-061689 01/08/2023 212.127 / / Screw 3.5mm Cortex Selftap 28mm - [id number] Implanted:Qty: 1 on 01/08/2022 by Julian Gallego MD at [facility] Left: Leg [employer] [place]-972706 01/08/2023 204.828 / / Screw Lock Va Slftp Amina 5mm T25 12mm - [id number] Implanted:Qty: 1 on 01/08/2022 by Julian Gallego MD at [facility] Left: Leg [employer] [place]-884808 01/08/2023 42.231.012 / / Screw 4.5mm Ti Cortex Selftap 34mm - [id number] Implanted:Qty: 2 on 01/08/2022 by Julian Gallego MD at [facility] Left: Leg [employer] [place]-424064 01/08/2023 414.834 / / Chip Bone 10 - [id number] - [id number] Implanted:Qty: 1 on 01/15/2022 by Julian Gallego MD at [facility]-851559 07/15/2026 PCAN10 / [id number] / [id number] Screw 2.7mm R3con Locking Plate 24mm - [id number] Implanted:Qty: 3 on 01/15/2022 by Julian Gallego MD at [place] [address] Inc-749902 [id number] / / Screw 2.7mm R3con Locking Plate 28mm - [id number] Implanted:Qty: 1 on 01/15/2022 by Julian Gallego MD at [place] [address] Inc-055203 [id number] / / Screw 3.5mm R3con Locking Plate 26mm - [id number] Implanted:Qty: 1 on 01/15/2022 by Julian Gallego MD at [place] [address] Inc-186895 [id number] / / Archplate Medial Clmn Prox 1.5mm R Lg - [id number] Implanted:Qty: 1 on 01/15/2022 by Julian Gallego MD at [place] [address] Inc-597931 [id number] / / Screw 2.7mm R3con Locking Plate 30mm - [id number] Implanted:Qty: 1 on 01/15/2022 by Julian Gallego MD at [facility] [employer] Inc-655837 [id number] / / Screw 2.7mm R3con Locking Plate 26mm - [id number] Implanted:Qty: 1 on 01/15/2022 by Julian Gallego MD at [facility] Right: Foot [place] [employer] Inc-693317 [id number] / / Screw 2.7mm R3con Nonlocking Plate 36mm - [id number] Implanted:Qty: 1 on 01/15/2022 by Julian Gallego MD at [facility] Right: Foot [place] [employer] Inc-304237 [id number] / / Screw 3.5mm R3con Nonlocking Plate 28mm - [id number] Implanted:Qty: 1 on 01/15/2022 by Julian Gallego MD at [facility] Right: Foot [place] [employer] Inc-745075 [id number] / / Screw 3.5mm R3con Locking Plate 24mm - [id number] Implanted:Qty: 1 on 01/15/2022 by Julian Gallego MD at [facility] Right: Foot [place] [employer] Inc-394647 [id number] / / Parnell Wire Threaded 1.6 X 80mm Implanted:Qty: 4 on 01/15/2022 by Julian Gallego MD at [facility] [employer] Inc-063056 [id number] / / Putty Dbx 10cc - [id number] Implanted:Qty: 1 on 03/04/2022 by Julian Gallego MD at [facility] Right: Femur [employer]-271951 05/23/2023 40342 / / [id number] Chip Bone 40cc - [id number] - [id number] Implanted:Qty: 1 on 03/04/2022 by Julian Gallego MD at [facility] Right: Femur [facility]-987542 11/20/2026 PCAN1/2 / [id number] / [id number] Chg Kit Prep Im Enhance Bone Repl - [id number] Implanted:Qty: 1 on 01/06/2023 by Reese Galindo MD at [facility] Right: Knee [employer] Inc-016212 [id number] / / NOT PROVIDED Tibial Baseplate Size 4 Component - [id number] Implanted:Qty: 1 on 01/06/2023 by Reese Galindo MD at [facility] Right: Knee [employer] Inc-060117 12/31/2029 [id number] / / [id number] Explanted Type Area Oxygen Equipment Technician Device Identifier Shelf Expiration Date Model / Serial / Lot Screw 3.5mm Cortex Selftap 70mm - S. - [id number] Explanted:Qty: 1 on 03/04/2022 by Julian Gallego MD at [facility] Screw Right: Femur Synthes [facility]-587554 03/04/2023 204.870 / . / Procedures Procedure Name Priority Date/Time Associated Diagnosis Comments HEPATITIS C ANTIBODY - ED W/REFLEX TO HCV QUANT PCR STAT 01/04/2022 9:31 AM EDT from Last 3 Months or Most Recently Relevant to Health Maintenance Results * Vincent Hepatitis C Antibody (01/04/2022 9:31 AM EDT) Hepatitis C Antibody Negative Negative 01/04/2022 10:53 AM EDT [facility] Blood Arterial blood specimen / Unknown Venipuncture / Unknown 01/04/2022 9:31 AM EDT 01/04/2022 9:39 AM EDT us Barbara Espinosa MD LAB BLOOD ORDERABLES Final Res ult [facility] [address] [place] [address] from Last 3 Months or Most Recently Relevant to Health Maintenance Insurance [place]ICA[place] [facility] MEDICARE Member Subscriber Plan / Payer (Ef fective 2024-Present) Name:Stephani Aldana Relation to Subscriber:Self Name:Stephani Aldana Payer ID:[id number] ([facility]) Type:Not on file Address: [place] [id number] [facility] D[facility]AL [place]ID-[place] MEDICARE Advance Directives * Full Code (Latest [...] Patient has decision-making capacity? Yes Care Teams Stockroom Selector Relationship Specialty Start Date End Date Vivek Mederos MD [address] [place] [address] PCP - General 05/15/21 Genevieve Santos PA [address] [place] [address] Physician Splicing Machine Operator [facility] 05/15/21
--- OUTSIDE RECORDS SUMMARY | 2025-07-04 12:42 | XMS_ITS | Encounter Summary ---
Author Organization [facility] Address [address] [place] [address] Care Team Providers Care Supervisor Shipping Room Name Role Phone Vivek Mederos MD Primary Care Provider [phone] Genevieve Santos Unavailable [phone] Reason for Visit * Reason Comments Med Refill Encounter Details Date Type Department Care Team (Late st Contact Info) Description 08/02/2024 Refill [facility] [place] [facility] [address] [place] [address] Gayle Aaron, [employer] [address] [place] [address] Social History Tobacco Use Types [...] drink first t nolvia in the morning (EYE-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 WRAPPING MACHINE OPERATOR) to steady your nerves or to [...] Description 10/03/2025 1:00 PM EST Procedure Visit [facility] [address] [place] [address] Jane Rojas MD [address] [place] [address] documented as of this encounter Visit Diagnoses [...] documented as of this encounter Care Teams Supervisor Shipping Room Relationship Specialty Start Date End Date Vivek Mederos MD [address] [place] [address] PCP - General 05/15/21 Genevieve Santos PA [address] [place] [id number] Physician Archives Specialist Neurology 05/15/21 documented as of this encounter
--- OUTSIDE RECORDS SUMMARY | 2025-07-04 12:43 | XMS_ITS | Encounter Summary ---
Author Organization Healthcare Address [address] [place] [address] Care Team Providers Care Professional Poker Player Name Role Phone Vivek Mederos MD Primary Care Provider [phone] Genevieve Santos Unavailable [phone] Reason for Visit * Reason Onset Date Comments HCN - Patient Message 05/21/2022 HCN - Rx Refill Request 05/21/2022 Encounter Details Date Type Department Care Team (Late st Contact Info) Description 05/21/2022 Telephone PFE SCHEDULING [address] [place] [address] Julian Gallego MD [address] [place] [address] HCN - Patient Message; HCN [...] 500mg Oxycodone 5mg Preferred Pharmacy & Location: [facility] [place] pharmacy Days of medication remaining (if under [...] like to use is: Luz [place] [phone] Best contact number and optimal time of day to reach caller: [phone] Note: Please do not reply to this message. Follow-up communication and further actions as a result of this message need to be communicated with the patient directly, if the patient is not active onMyChart. If the patient is active on MyChart, they will receive notification of the communication/outcome via [employer]. documented in this encounter Plan of Treatment Upcoming Encounters Date Type Department Care Team (Late st Contact Info) Description 10/03/2025 1:00 PM EST Procedure Visit [facility] [address] [place] [address] Jane Rojas MD [address] [place] [address] documented as of this encounter Visit Diagnoses Not on filedocumented in this encounter Additional Health Concerns Assessment Noted Time A fall risk assessment has been complete d for the patient 05/21/2022 11:29 AM EDT documented as of this encounter Care Teams Professional Poker Player Relationship Specialty Start Date End Date Vivek Mederos MD [address] [place] [address] PCP - General 05/15/21 Genevieve Santos PA [address] [place] [address] Physician Textile Machine Operator Neurology 05/15/21 documented as of this encounter
--- OUTSIDE RECORDS SUMMARY | 2025-07-04 12:43 | XMS_ITS | Encounter Summary ---
Author Organization [facility] Address [address] [place] [address] Care Team Providers Care Accounting Representative Name Role Phone Vivek Mederos MD Primary Care Provider [phone] Genevieve Santos Unavailable [phone] Reason for Visit * Reason Onset Date Comments HCN - Patient Message 07/14/2022 Results call back Encounter Details Date Type Department Care Team (Late st Contact Info) Description 07/14/2022 Telephone [place] [facility] [address], [address] [place] [address] Genevieve Santos PA [address] [place] [address] HCN - Patient Message (Results [...] optimal time of day to reach caller: [phone] Note: Please do not reply to this message. Follow-up communication and further actions as a result of this message need to be communicated with the patient directly, if the patient is not active onMyChart. If the patient is active on MyChart, they will receive notification of the communication/outcome via [employer]. * Telephone Encounter - Genevieve Santos PA - 07/20/2022 2:04 PM EST Called again * Telephone Encounter - Hoda Osorio - 07/20/2022 12:16 PM EST Patient Phone Message Reason for Call: Missed a call , please try again Verified number Best contact number and optimal time of day to reach caller: [phone] Note: Please do not reply to this [...] optimal time of day to reach caller: [phone] Note: Please do not reply to this message. Follow-up communication and further actions as a result of this message need to be communicated with the patient directly, if the patient is not active onMyChart. If the patient is active on MyChart, they will receive notification of the communication/outcome via [employer]. documented in this encounter Plan of Treatment Upcoming Encounters Date Type Department Care Team (Late st Contact Info) Description 10/03/2025 1:00 PM EST Procedure Visit [facility] [address] [place] [address] Jane Rojas MD [address] [place] [address] documented as of this encounter Visit Diagnoses Not on filedocumented in this encounter Additional Health Concerns Assessment Noted Time A fall risk assessment has been complete d for the patient 06/30/2022 11:00 AM EDT documented as of this encounter Care Teams Accounting Representative Relationship Specialty Start Date End Date Vivek Mederos MD [address] [place] [address] PCP - General 05/15/21 Genevieve Santos PA [address] [place] [address] Physician Community Service Specialist Neurology 05/15/21 documented as of this encounter
== END 2025-07-02 23:59 ==
LOC: LAB.DROPOF 07-04 12:03
PROVIDERS: PCP Family Medicine; Visit Provider Nurse Practitioner
DX: R35.0 Frequency of micturition (principal)
CPT/HCPCS: 87086

== ENCOUNTER 2025-07-11 16:00 | Outpatient (RCR) | payer MEDICARE, MEDICAID, SELFPAY ==
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
== END 2025-07-11 23:59 | disposition home or self-care (01) ==
LOC: PT 16:00
PROVIDERS: Visit Provider Family Medicine
DX: M54.50 Low back pain, unspecified (principal)
CPT/HCPCS: 97110; 97162

== ENCOUNTER 2025-07-26 13:00 | Outpatient (RCR) | payer MEDICARE, MEDICAID, SELFPAY ==
--- NOTE | 2025-07-18 16:00 | HMH.RHREAS ---
Rehab Reassessment Rehab OP Re-assessment Start: 07/18/25 15:11 Freq: Status: Active Protocol: Document 07/18/25 15:11 KIKI (Rec: 07/18/25 15:33 KIKI [id number]) E-signed By Louise Beltre, PT Oswestry Index Section 1 Pain Intensity The pain comes and goes and is moderate Section 2 Personal Care ( change my way of washing or dressing in order to avoid Washing,Dresing) pain Section 3 Lifting I can lift heavy weights without extra pain Section 4 Walking I have no pain when walking Section 5 Sitting Pain prevents me from sitting for more than one hour Section 6 Standing I cannot stand more than 1 hour without increasing pain Section 7 Sleeping I get no pain in bed Section 8 Social Life My social life is normal but increases the degree of pain Section 9 Traveling I get no pain when traveling Section 10 Changing Degreee of My pain fluctuates, but overall is definitely getting Pain better Score and Risk Level Oswestry Score 8 Oswestry Risk Level Mild Disability Rehab Re-assessment Subjective Subjective Pt reports she still has LBP. Pt also reports she hasn't really been having back pain . It comes and goes . Pt reports the pain has been about a constant 5/10 Pt reports 5/10 LBP over past 48 hours. HEP: Pt reports she has not performed any exercises. I haven't had time Pt reports having a kidney infection for the past 6 weeks. Objective Objective Notes BLE MMTs: Hip FLEX = -4/5 Hip ABD = -4/5 Hip ADD = -4/5 Knee FLEX = -4/5 Knee EXT = -4/5 Lumbar AROM: FLEX= 100% non-painful EXT= 25%, painful R SB= 100% non-painful L SB= 100% non-painful Assessment Progress Assessment Progressing as Expected Assessment Notes This is a reassessment for Stephani Aldana who presents to PT with c/o LBP. Pt with minimal complaints of LBP but wishes to work on strengthening her back. Since IE, pt has been seen for one brief session. Pt presents with same deficits as noted upon evaluation . Pt would benefit from skilled OP PT to address deficits . PT Patient Goals PT Short Term In 4 weeks, pt will: Patient Goals 1) Verbalize compliance with home exercise program to improve self-maintenance of symptoms. not met 2) Verbalize 48-hour pain average (worst/best/current) of 3/10: not met 3) Improve BLE strength by 1/5 MMT grade to improve daily functioning. not met 4) Tolerate one 10 min moderate intensity endurance task (ex: bike): met 5) Improve SAM to at most 8 points to decrease disability from LBP and improve QOL. met 6) Verbalize feeling at least 45% improved in symptoms since initial PT evaluation. not met PT Cyber Intel Planner Patient In 8 weeks, pt will: not met Goals 1) Verbalize adherence with home exercise program to maximize self-maintenance of symptoms upon d/c from PT POC. 2) Verbalize 48-hour pain average (worst/best/current) of 1-2/10 3) Improve BLE strength to 5/5 MMT grade to improve daily functioning. 4) Improve SAM to at most 6 points to decrease disability from LBP and improve QOL. 5) Verbalize feeling at least 90% improved in symptoms since initial PT evaluation. not met Plan Plan continue POC Frequency of Therapy 2x Duration of Therapy 4-5 weeks Time and Billing Re-Eval Time 25 Re-Eval Billing 0 Units Charge for PT No reassessment? PHYSICIAN CERTIFICATION: I certify the specified therapy services for Stephani Aldana are required, authorized, and reviewed every 30 days.
== END 2025-07-26 23:59 | disposition home or self-care (01) ==
LOC: PT 13:00
PROVIDERS: PCP Family Medicine; Visit Provider Family Medicine
DX: M54.50 Low back pain, unspecified (principal)
CPT/HCPCS: 97110

== ENCOUNTER 2025-08-14 17:42 | Outpatient (CLI) | payer MEDICARE, MEDICAID, SELFPAY ==
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
--- OUTSIDE RECORDS SUMMARY | 2025-07-24 16:15 | XMS_ITS | Encounter Summary ---
Author Organization [facility] Address [address] [place] [address] Care Team Providers Care Glove Cleaner Name Role Phone Vivek Mederos MD Primary Care Provider [phone] Genevieve Santos Unavailable [phone] Reason for Referral * Imaging (Routine) - Closed Specialty Diagnoses / Procedures Referred By Akiko isaac Referred To Contact Radiology Diagnoses Mild cognitive impairment Procedures MR Head wo IV Contrast Gayle Aaron APRN [address] [place] [address] Phone: tel: fax: Referral ID Status Reason Start Date Expiration Date Visits Re quested Visits Authorized [id number] Closed 07/03/2025 01/02/2027 1 1 Reason for Visit * Imaging (Routine) - Closed Specialty Diagnoses / Procedures Referred By Akiko isaac Referred To Contact Radiology Diagnoses Mild cognitive impairment Procedures MR Head wo IV Contrast Gayle Aaron APRN [address] [place] [address] Phone: tel: fax: Referral ID Status Reason Start Date Expiration Date Visits Re quested Visits Authorized [id number] Closed 07/03/2025 01/02/2027 1 1 Encounter Details Date Type Department Care Team (Latest Contact Info) Description 07/24/2025 4:15 PM EST - 07/24/2025 11:59 PM EST Hospital Encounter [facility] [address] [place] [address] Mild cognitive impairment Discharge Disposition: Home or Self Care Social History Tobacco Use Types Packs/Day Years [...] drink first t nolvia in the morning (EYE-UNDERWRITING SUPPORT SPECIALIST) to steady your nerves or to [...] on file documented as of this encounter Medications at Time of Discharge acetaminophen (Tylenol) 500 MG tablet Take 2 tablets (1,000 mg total) by mouth every 8 (eight) hours. 100 tablet 01/09/2023 albuterol 108 (90 Base) MCG/ACT inhaler 04/17/2023 azelastine (Astelin) 0.1 % nasal spray if needed. 04/17/2023 buPROPion XL (Wellbutrin XL) 300 MG 24 hr tablet 04/23/2025 cefuroxime (Ceftin) 500 MG tablet 08/09/2023 Cipro 500 MG tablet Take 1 tablet by mouth 2 times a day. 03/20/2025 cyclobenzaprine (Flexeril) 5 MG tablet Take 1 tablet (5 mg) by mouth if needed for muscle spasms. 07/09/2022 divalproex (Depakote ER) 250 MG 24 hr tablet TAKE 1 TABLET BY MOUTH ONCE DAILY 90 tablet 2 04/27/2025 docusate sodium (Colace) 250 MG capsule Take 1 capsule (250 mg total) by mouth 2 (two) times a day. 60 capsule 01/09/2023 donepezil (Aricept) 10 MG tablet Take 1 tablet (10 mg) by mouth 1 (one) time each day. 90 tablet 1 07/05/2024 DULoxetine (Cymbalta) [address] capsule 06/08/2025 fluticasone (Flonase) 50 MCG/ACT nasal spray 03/22/2023 gabapentin (Neurontin) 100 MG capsule Take 1 capsule (100 mg total) by mouth 3 (three) times a day. 30 capsule 01/09/2023 levocetirizine (Xyzal) 5 MG tablet Take 1 tablet (5 mg) by mouth 1 (one) time each day in the evening. Linzess 72 MCG capsule capsule 04/16/2023 lisinopril 5 MG tablet 04/08/2023 memantine (Namenda) 10 MG tabletIndications:Mi ld cognitive impairment Take one tablet twice a day. 180 tablet 3 01/23/2025 montelukast (Singulair) 10 MG tablet Take 1 tablet (10 mg) by mouth every night. Myrbetriq 50 MG tablet Take 1 tablet (50 mg) by mouth every night. 03/27/2021 omeprazole (PriLOSEC) [address] capsule Take 1 capsule (20 mg) by mouth 1 (one) time each day. 09/14/2022 ondansetron ODT (Zofran-ODT) 4 MG disintegrating tablet Take 1 tablet (4 mg) by mouth every 8 (eight) hours if needed. 10/02/2020 oxybutynin XL (Ditropan-XL) 10 MG 24 hr tablet 11/03/2024 risedronate (Actonel) 35 MG tablet 1 tablet at least 30 minutes before the first food or drink, other than water, of the day Orally once a week; Duration: 30 days 05/16/2025 temazepam (Restoril) 15 MG capsule Take 1 capsule (15 mg) by mouth every night. 12/23/2022 traMADol (Ultram) 50 MG tablet 04/14/2023 divalproex (Depakote) [address] tablet Take 1 tablet (500 mg) by mouth every night. Do not crush, chew, or split. 90 tablet 3 08/16/2024 documented as of this encounter Plan of Treatment Upcoming Encounters Date Type Department Care Team (Late st Contact Info) Description 09/14/2025 1:30 PM EST Appointment [facility] [address] [facility], [place] [address] 09/14/2025 2:30 PM EST Appointment [facility] [address] [facility], [place] [address] 10/03/2025 1:00 PM EST Procedure [facility] [address], [address] [place] [address] Jane Rojas MD [address] [place] [address] documented as of this encounter Procedures Procedure Name Priority Date/Time Associated Diagnosis Comments MR HEAD WO IV CONTRAST Routine 07/24/2025 5:33 PM EST Mild cognitive impairment documented in this encounter Results * MR Head wo [...] documented as of this encounter Care Teams Glove Cleaner Relationship Specialty Start Date End Date Vivek Mederos MD [address] [place] [address] PCP - General 05/15/21 Genevieve Santos PA [address] [facility] [address] [place] [address] Physician Medicaid Analyst Neurology 05/15/21 documented as of this encounter
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
--- OUTSIDE RECORDS SUMMARY | 2025-08-15 10:01 | XMS_ITS | Encounter Summary ---
Author Organization Healthcare Address [address] [place] [address] Care Team Providers Care Director Appointment Name Role Phone Vivek Mederos MD Primary Care Provider [phone] Genevieve Snatos Unavailable [phone] Encounter Details Date Type Department Care [...] drink first t nolvia in the morning (EYE-AMMUNITION ASSEMBLY II LABORER) to steady your nerves or to [...] H Radiology [address], [place] [address] 09/14/2025 2:30 PM EST Appointment [facility] [address] [place] [address] 10/03/2025 1:00 PM EST Procedure Visit [facility] [address], [address] [place] [address] Jane Rojas MD [address] [place] [address] documented as of this encounter Visit Diagnoses [...] as of this encounter Care Teams Director Appointment Relationship Specialty Start Date End Date Vivek Mederos MD [address] [place] [address] PCP - General 05/15/21 Genevieve Santos PA [address] [place] [address] Physician Supervisor Opening And Picking Neurology 05/15/21 documented as of this encounter
--- OUTSIDE RECORDS SUMMARY | 2025-08-15 10:01 | XMS_ITS | Encounter Summary ---
Author Organization [facility] Address [address] [place] [address] Care Team Providers Care Facility Maintenance Supervisor Name Role Phone Vivek Mederos MD Primary Care Provider [phone] Genevieve Santos Unavailable [phone] Encounter Details Date Type Department Care Team (Late st Contact Info) Description 07/04/2025 Orders Only [facility] Radiology Virtual Dept. [address] [place] [address] Jolynn Nguyen, DO [address] [place] [address] Social History Tobacco Use Types Packs/Day Years [...] drink first t nolvia in the morning (EYE-PUNCH OUT CREW MEMBER) to steady your nerves or to get [...] H Radiology [address], [place] [address] 09/14/2025 2:30 PM EST Appointment [facility] [address] [place] [address] 10/03/2025 1:00 PM EST Procedure Visit [facility] [address], [address] [place] [address] Jane Rojas MD [address] [place] [address] documented as of this encounter [...] as of this encounter Care Teams Facility Maintenance Supervisor Relationship Specialty Start Date End Date Vivek Mederos MD [address] [place] [address] PCP - General 05/15/21 Genevieve Santos PA [address] [place] [address] Physician Ordnance Engineer Neurology 05/15/21 documented as of this encounter
--- OUTSIDE RECORDS SUMMARY | 2025-08-15 10:01 | XMS_ITS | Encounter Summary ---
Author Organization Healthcare Address [address] [place] [address] Care Team Providers Care Senior Patrol Agent Name Role Phone Vivek Mederos MD Primary Care Provider [phone] Genevieve Santos Unavailable [phone] Reason for Visit * Reason Comments Med Refill Encounter Details Date Type Department Care Team (Late st Contact Info) Description 04/12/2023 Refill [facility] [place] - Memory [address] [place] [address] Cuca Das, PA [address] [place] [address] Social History Tobacco Use Types [...] drink first t nolvia in the morning (EYE-IT TELECOM TECHNICIAN) to steady your nerves or to get [...] EST Appointment [facility] [address] [place] [address] 09/14/2025 2:30 PM EST Appointment [facility] [address] [facility], [place] [address] 10/03/2025 1:00 PM EST Procedure Visit [facility] [address] [place] [address] Jane Rojas MD [address] [place] [address] documented as of this encounter Visit Diagnoses Not on filedocumented in this encounter Additional Health Concerns Assessment Noted Time A fall risk assessment has been complete d for the patient 03/23/2023 3:02 PM EDT A Body Mass Index follow-up plan has been documented for the patient 03/24/2023 7:31 AM EDT documented as of this encounter Care Teams Senior Patrol Agent Relationship Specialty Start Date End Date Vivek Mederos MD [address] [place] [address] PCP - General 05/15/21 Genevieve Santos PA [address] [place] [address] Physician Lube Attendant Neurology 05/15/21 documented as of this encounter
--- OUTSIDE RECORDS SUMMARY | 2025-08-15 10:02 | XMS_ITS | Encounter Summary ---
Author Organization [facility] Address [address] [place] [address] Care Team Providers Care Pattern Gater Name Role Phone Vivek Mederos MD Primary Care Provider [phone] Genevieve Santos Unavailable [phone] Reason for Visit * Reason Comments Med Refill Encounter Details Date Type Department Care Team (Late st Contact Info) Description 08/02/2024 [facility] [place] - Memory [address] [place] [address] Gayle Aaron, CATHEAD OPERATOR [address] [place] [address] Social History Tobacco Use Types [...] drink first t nolvia in the morning (EYE-SALES ACCOUNT EXECUTIVE) to steady your nerves or to get [...] PM EST Appointment [facility] [address] [facility], [place] [address] 09/14/2025 2:30 PM EST Appointment [facility] [address] [place] [address] 10/03/2025 1:00 PM EST Procedure Visit [facility] [address], [address] [place] [address] Jane Rojas MD [address] [place] [address] documented as of this encounter Visit Diagnoses [...] documented as of this encounter Care Teams Pattern Gater Relationship Specialty Start Date End Date Vivek Mederos MD [address] [place] [address] PCP - General 05/15/21 Genevieve Santos PA [address] [place] [address] Physician Compotype Operator Neurology 05/15/21 documented as of this encounter
--- OUTSIDE RECORDS SUMMARY | 2025-08-15 10:02 | XMS_ITS | Clinical Summary ---
Author Organization [facility] Address [facility] [address] [facility] [place] [address] Phone Care Team Providers Care Software Testing Specialist Name Role Phone Dewey Wade DPM Unavailable [phone] Vivek Mederos MD Primary Care Provider [phone] Allergies Active Allergy Reactions Criticality Noted Date [...] (10/31/2021): Added automatically from request for surgery [id number] Ingrowing nail 08/11/2021 Unspecified venous (peripheral) insufficiency [...] 01/11/2022, 06/16/2021 COVID-19 Vaccine ( - season) 2025 06/22/2022, 12/31/2021, 07/17/2021 Influenza Vaccine (#1) 2025 2, 06/16/2021, 08/16/2020, Additional history exists DTaP/TDaP/Td (5 - Td or Tdap) 01/04/2032 01/03/2022, 10/30/2016, 03/08/2012, Additional history exists Zoster Completed 06/16/2021, 03/14, 12/01/2017 Meningococcal B Vaccine Aged Out 03/09/2022, 01/11 No longer eligible based on patient's age to complete this topic Hepatitis B Vaccine Aged Out No longe r eligible based on patient's age to complete this topic Medical Devices Implanted Type Area Clam Dredge Boat Captain Device Identifier Shelf Expiration Date Model / Serial / Lot Toes Metal Ioc Insurance [place]ICAID [place] MED[place]MO MR [place] O Care Teams Software Testing Specialist Relationship Specialty Start Date End Date Vivek Mederos MD [address] [facility] [address] [place] [address] PCP - General Family Medicine 08/04/16 Dewey Wade DPM [address] [place] [address] [address] [place] [address] [employer] Executive Producer-Surgery, Foot & Ankle 06/26/14
--- OUTSIDE RECORDS SUMMARY | 2025-08-15 10:02 | XMS_ITS | Encounter Summary ---
Author Organization [facility] Address [address] [place] [address] Care Team Providers Care Baler Name Role Phone Vivek Mederos MD Primary Care Provider [phone] Genevieve Santos Unavailable [phone] Reason for Visit * Reason Comments Med Refill Encounter Details Date Type Department Care Team (Late st Contact Info) Description [facility] [place] [facility] [address] [place] [address] Gayle Aaron, TELEVISION PRODUCTION CLERK [address] [place] [address] Social History Tobacco Use Types [...] drink first t nolvia in the morning (EYE-MOLDER BENCH) to steady your nerves or to get [...] PM EST Appointment [facility] [address] [facility], [place] [address] 09/14/2025 2:30 PM EST Appointment [facility] [address] [facility], [place] [address] 10/03/2025 1:00 PM EST Procedure Visit [place] [facility] [address], [address] [place] [address] Jane Rojas MD [address] [place] [address] documented as of this encounter Visit Diagnoses [...] documented as of this encounter Care Teams Baler Relationship Specialty Start Date End Date Vivek Mederos MD [address] [place] [address] PCP - General 05/15/21 Genevieve Santos PA [address] [place] [address] Physician Fiberglasser Neurology 05/15/21 documented as of this encounter
--- OUTSIDE RECORDS SUMMARY | 2025-08-15 10:02 | XMS_ITS | Encounter Summary ---
Author Organization Healthcare Address [address] [place] [address] Care Team Providers Care Experimental Machinist Name Role Phone Vivek Mederos MD Primary Care Provider [phone] Genevieve Santos Unavailable [phone] Encounter Details Date Type Department Care Team (Late Contact Info) Description 01/05/2022 Lab Requisition [facility] [address] [place] [address] Sanjeev Rod MD [address] [place] [address] Encounter for general adult medical [...] PM EST Appointment [facility] [address] [facility], [place] [address] 09/14/2025 2:30 PM EST Appointment [facility] [address] [facility], [place] [address] 10/03/2025 1:00 PM EST Procedure Visit [place] [facility] [address], [address] [place] [address] Jane Rojas MD [address] [place] [address] documented as of this encounter Procedures Procedure Name Priority Date/Time Associated Diagnosis Comments MULTI DRUG RESISTANCE TEST Routine 01/05/2022 7:00 PM EDT Encounter for general adult medical examination without abnormal findings documented in this encounter Results * Multi Drug Resistance Test (01/05/2022 7:00 PM EDT) Culture No growth at day 2 01/07/2022 9:35 AM EDT [facility] Swab (Nares and Amina Rectal) 01/05/2022 7:00 PM EDT 01/05/2022 9:16 PM EDT us Sanjeev Newsome MD LAB MICROBIOLOGY - GENERAL ORDERABLES Final Result [facility] [address] [place] [address] documented in this encounter Visit Diagnoses Diagnosis Encounter for general adult medical examination without abnormal findings documented in this encounter Additional Health Concerns Assessment Noted Time A fall risk assessment has been complete d for the patient 05/15/2021 4:08 PM EDT documented as of this encounter Care Teams Experimental Machinist Relationship Specialty Start Date End Date Vivek Mederos MD [address] [place], [place] [address] PCP - General 05/15/21 Genevieve Santos PA [address] [place] [address] Physician Project Surveyor Neurology 05/15/21 documented as of this encounter
--- OUTSIDE RECORDS SUMMARY | 2025-08-15 10:02 | XMS_ITS | Encounter Summary ---
Author Organization Healthcare Address [address] [place] [address] Care Team Providers Care Software Solutions Architect Name Role Phone Vivek Mederos MD Primary Care Provider [phone] Genevieve Santos Unavailable [phone] Reason for Visit * Reason Onset Date Comments HCN - Patient Message 05/21/2022 HCN - Rx Refill Request 05/21/2022 Encounter Details Date Type Department Care Team (Late st Contact Info) Description 05/21/2022 Telephone PFE SCHEDULING [address] [place] [id number] Julian Gallego MD [address] [facility] [address] [place] [address] HCN - Patient Message; HCN [...] 500mg Oxycodone 5mg Preferred Pharmacy & Location: [facility] pharmacy Days of medication remaining (if under [...] company she would like to use is: [employer] [place] [place] [phone] Best contact number and optimal time of day to reach caller: [phone] Note: Please do not reply to this message. Follow-up communication and further actions as a result of this message need to be communicated with the patient directly, if the patient is not active onMyChart. If the patient is active on MyChart, they will receive notification of the communication/outcome via [employer]. documented in this encounter Plan of Treatment Upcoming Encounters Date Type Department Care Team (Late st Contact Info) Description 09/14/2025 1:30 PM EST Appointment [facility] [address] [facility], [place] [address] 09/14/2025 2:30 PM EST Appointment [facility] [address] [facility], [place] [address] 10/03/2025 1:00 PM EST Procedure Visit [facility] [address] [place] [address] Jane Rojas MD [address] [place] [address] documented as of this encounter Visit Diagnoses Not on filedocumented in this encounter Additional Health Concerns Assessment Noted Time A fall risk assessment has been complete d for the patient 05/21/2022 11:29 AM EDT documented as of this encounter Care Teams Software Solutions Architect Relationship Specialty Start Date End Date Vivek Mederos MD [address] [place] [address] PCP - General 05/15/21 Genevieve Santos PA [address] [place] [address] Physician Construction Area Manager Neurology 05/15/21 documented as of this encounter
--- OUTSIDE RECORDS SUMMARY | 2025-08-15 10:02 | XMS_ITS | Clinical Summary ---
Author Organization [facility] Address [address] [place] [address] Care Team Providers Care Border Measurer Name Role Phone Vivek Mederos MD Primary Care Provider [phone] Genevieve Santos Unavailable [phone] Allergies Active Allergy Reactions Criticality Noted Date Comments Neomycin-Bacitracin Zn-Polymyx Rash Low 01/01/2023 Neosporin ointment Bacitracin-Polymyxin B Rash,Other - plea se document in the comment field Low 08/23/2024 Benzalkonium Chloride Rash Low 11/09/2012 Latex Itching,Rash Medium 01/04/2022 Nitrofurantoin Rash Low 03/15/2014 Medications Myrbetriq 50 MG tablet Take 1 tablet (50 mg) by mouth every night. 021 Active ondansetron ODT (Zofran-ODT) 4 MG disintegrating tablet Take 1 tablet (4 mg) by mouth every 8 (eight) hours if needed. 021 Active levocetirizine (Xyzal) 5 MG tablet Take 1 tablet (5 mg) by mouth 1 (one) time each day in the evening. Active montelukast (Singulair) 10 MG tablet Take 1 tablet (10 mg) by mouth every night. Active cyclobenzaprine (Flexeril) 5 MG tablet Take 1 tablet (5 mg) by mouth if needed for muscle spasms. 022 Active omeprazole (PriLOSEC) [address] capsule Take 1 capsule (20 mg) by mouth 1 (one) time each day. 023 Active temazepam (Restoril) 15 MG capsule Take 1 capsule (15 mg) by mouth every night. 023 Active acetaminophen (Tylenol) 500 MG tablet Take 2 tablets (1,000 mg total) by mouth every 8 (eight) hours. 100 tablet 023 Active docusate sodium (Colace) 250 MG capsule Take 1 capsule (250 mg total) by mouth 2 (two) times a day. 60 capsule 023 Active gabapentin (Neurontin) 100 MG capsule Take 1 capsule (100 mg total) by mouth 3 (three) times a day. 30 capsule 023 Active Additional Information Patient not taking.Reported on 07/03/2025 traMADol (Ultram) 50 MG tablet 023 Active lisinopril 5 MG tablet 023 Active fluticasone (Flonase) 50 MCG/ACT nasal spray 023 Active Linzess 72 MCG capsule capsule 023 Active albuterol 108 (90 Base) MCG/ACT inhaler 023 Active azelastine (Astelin) 0.1 % nasal spray if needed. 023 Active cefuroxime (Ceftin) 500 MG tablet 023 Active donepezil (Aricept) 10 MG tablet Take 1 tablet (10 mg) by mouth 1 (one) time each day. 90 tablet 1 024 Active oxybutynin XL (Ditropan-XL) 10 MG 24 [...] ONCE DAILY 90 tablet 2 025 Active DULoxetine (Cymbalta) [address] capsule 025 Active risedronate (Actonel) 35 MG tablet 1 tablet at least 30 minutes before the first food or drink, other than water, of the day Orally once a week; Duration: 30 days 025 Active buPROPion XL (Wellbutrin XL) 300 MG 24 hr tablet 025 Active divalproex (Depakote) [address] tablet TAKE ONE (1) TABLET BY MOUTH ONCE DAILY EVERY NIGHT. DO NOT CRUSH, CHEW, OR SPLIT. 90 tablet 3 025 Active divalproex (Depakote) [address] tablet Take 1 tablet (500 mg) by mouth every night. Do not crush, chew, or split. 90 tablet 3 024 2024 Discontinued Hospital, [...] (06/30/2022): Added automatically from request for surgery [id number] Closed right radial fracture 01/16/2022 Overview (01/27/2022): [...] Encounters Date Type Department Care Team Description 07/26/2025 Refill [facility] [address] [place] [address] Gayle Aaron APRN 07/24/2025 4:15 PM EST - 07/24/2025 11:59 PM EST Hospital Encounter [place] [facility] [address] [place] [address] Mild cognitive impairment Discharge Disposition: Home or Self Care 07/24/2025 Travel 07/04/2025 Orders Only Radiology Virtual Dept. 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) to steady your nerves or to [...] H Radiology [address] [place] [address] 09/14/2025 2:30 PM EST Appointment [facility] Radiology [address] [place] [address] 10/03/2025 1:00 PM EST Procedure Visit [place] [facility] [address], [address] [place] [address] Jane Rojas MD [address] [place] [address] Health Maintenance Due Date Last Done Comments [...] Cancer Screening 11/15/2000 [facility]-Breast Cancer Screening 11/15/2005 [id number] Vaccine ( - 2024- season) 2025 06/22/2022, 12/31/2021, 07/17/2021, Additional history exists [facility]-Depression Screening 08/09/2025 08/09/2024, [...] Completed 025, 03/28/2025, 03/15/2025, Additional history exists [facility]-Influenza Vaccine Completed 07/11/2025 , 06/22/2022, 06/16/2021, Additional history exists HPV Vaccines Aged Out [...] this topic Medical Devices Implanted Type Area Pneumatic Tube Fitter Device Identifier Shelf Expiration Date Model / Serial / Lot Cement With Tobramycin - [id number] Implanted:Qty: 3 on 01/06/2023 by Reese Galindo MD at [facility] Cement Right: Knee [employer] [id number] 04/12/2024 [id number] / / [id number] Distalfemur Kaosf35py - [id number] Implanted:Qty: 1 on 01/06/2023 by Reese Galindo MD at [facility] Knee Right: Knee Ons Surgical [facility]-911418 03/25/2029 [id number] / / [id number] Midsection Male-Female 90mm - [id number] Implanted:Qty: 1 on 01/06/2023 by Reese Galindo MD at [facility] Knee Right: Knee Ons [employer] [facility]-537088 02/25/2029 [id number] / / [id number] Eleos Tibial Hinge W/O Rotational Stop - [id number] Implanted:Qty: 1 on 01/06/2023 by Reese Galindo MD at [facility] Knee Right: Knee Ons [employer] [facility]-826808 04/22/2030 [id number] / / [id number] Tibial Poly Spacer 8mm - [id number] Implanted:Qty: 1 on 01/06/2023 by Reese Galindo MD at [facility] Knee Right: Knee [employer] [facility]-354153 02/13/2030 [id number] / / [id number] Distalfemur Axial Pin One Size - [id number] Implanted:Qty: 1 on 01/06/2023 by Reese Galindo MD at [facility] Knee Right: Knee Onkos [employer] [facility]-944413 08/19/2030 [id number] / / [id number] Nail Femoral Retro T2 Alpha 10mm X 360mm - [id number] Implanted:Qty: 1 on 01/08/2022 by Julian Gallego MD at [facility] Nail Left: Leg [employer] ([employer])-845696 09/12/2031 2339-1036S / / Plate Crosslock Std Dvr Lt - [id number] Implanted:Qty: 1 on 01/08/2022 by Julian Gallego MD at [facility] Plate Left: Wrist [employer] Inc-[id number] 01/08/2023 [id number] / / Plate Tibia Prox 3.5 12h 185m Left - [id number] Implanted:Qty: 1 on 01/08/2022 by Julian Gallego MD at [facility] Plate Left: Leg [employer]s [place]-613326 01/08/2023 239.943 / / Plate 4.5mm Tiva Cond 14hole 301mm L - [id number] Implanted:Qty: 1 on 01/08/2022 by Julian Gallego MD at [facility] Plate Left: Leg Synthes [place]-726966 01/08/2023 04.124.415 / / Plate Lcp 3.5mm 215mm 16h - S. - [id number] Implanted:Qty: 1 on 03/04/2022 by Julian Gallego MD at [facility] Plate Right: Femur Synthes [place]-691948 03/04/2023 223.661 / . / Nonlock Lp 2.7mm X 14mm - [id number] Implanted:Qty: 1 on 01/08/2022 by Julian Gallego MD at [facility] Screw Left: Wrist George [employer] Inc-359321 01/08/2023 [id number] / / Nonlock Lp 2.7mm X 15mm - [id number] Implanted:Qty: 2 on 01/08/2022 by Julian Gallego MD at [facility] Screw Left: Wrist [employer] Inc-588759 01/08/2023 [id number] / / Nonlock Lp 2.7mm X 24mm - [id number] Implanted:Qty: 1 on 01/08/2022 by Julian Gallego MD at [facility] Screw Left: Wrist George [employer] Inc-207836 01/08/2023 [id number] / / Screw 2.7mm Ti Locking Square 14mm - [id number] Implanted:Qty: 1 on 01/08/2022 by Julian Gallego MD at [facility] Screw Left: Wrist [employer] Inc-[id number] 01/08/2023 [id number] / / Screw 2.7mm Ti Locking Square 16mm - [id number] Implanted:Qty: 4 on 01/08/2022 by Julian Gallego MD at [facility] Screw Left: Wrist [employer] Inc-391325 01/08/2023 [id number] / / Screw 2.7mm Tilocking Square 18mm - [id number] Implanted:Qty: 1 on 01/08/2022 by Julian Gallego MD at [facility] Screw Left: Wrist [employer] Inc-795850 01/08/2023 [id number] / / Screw Locking Adv T2 T2 D5xl80 - [id number] Implanted:Qty: 2 on 01/08/2022 by Julian Gallego MD at [facility] Screw Left: Leg [employer] [facility]004706 10/13/2031 2361-5080S / / Screw Locking Adv T2 T2 D5xl60 - [id number] Implanted:Qty: 1 on 01/08/2022 by Julian Gallego MD at [facility] Screw Left: Leg [employer] [facility]933796 09/12/2031 2361-5060S / / Screw Locking Adv T2 T2 D5xl75 - [id number] Implanted:Qty: 1 on 01/08/2022 by Julian Gallego MD at [facility] Screw Left: Leg [employer] [facility]640162 11/11/2031 2361-5075S / / Screw Locking T2 D5x35 - [id number] Implanted:Qty: 1 on 01/08/2022 by Julian Gallego MD at [facility] Screw Left: Leg [employer] ([employer])-817092 08/12/2031 2360-5035S / / Screw Locking T2 D5x37.5 - [id number] Implanted:Qty: 1 on 01/08/2022 by Julian Gallego MD at [facility] Screw Left: Leg [employer] ([employer])-480734 09/12/2031 2360-5037S / / Screw 3.5mm Cortex Low Profile Selftap 80mm - [id number] Implanted:Qty: 1 on 01/08/2022 by Julian Gallego MD at [facility] Screw Left: Leg [employer] [place]-648965 01/08/2023 02.206.080 / / Screw 3.5mm Star Lock Selftap 80mm - [id number] Implanted:Qty: 2 on 01/08/2022 by Julian Gallego MD at [facility] Screw Left: Leg [employer] [place]-914049 01/08/2023 212.128 / / Screw 3.5mm Cortex Low Profile Selftap 65mm - [id number] Implanted:Qty: 1 on 01/08/2022 by Julian Gallego MD at [facility] Screw Left: Leg [employer] [place]-408960 01/08/2023 02.206.065 / / Screw Va Locking John 5mm 25mm - [id number] Implanted:Qty: 1 on 01/08/2022 by Julian Gallego MD at [facility] Screw [employer] [place]-524973 01/08/2023 42.231 .625 / / Screw 3.5mm Cortex Selftap 28mm - S. - [id number] Implanted:Qty: 1 on 03/04/2022 by Julian Gallego MD at [facility] Screw Right: Femur [employer]s [place]-263000 03/04/2023 204.828 / . / Screw 3.5mm Cortex Selftap 40mm - S. - [id number] Implanted:Qty: 1 on 03/04/2022 by Julian Gallego MD at [facility] Screw Right: Femur [employer] [place]-612900 03/04/2023 204.840 / . / Screw 3.5mm Star Lock Selftap 24mm - S. - [id number] Implanted:Qty: 1 on 03/04/2022 by Julian Gallego MD at [facility] Screw Right: Femur [employer] [place]-080044 03/04/2023 212.108 / . / Screw 3.5mm Star Lock Selftap 40mm - S. - [id number] Implanted:Qty: 1 on 03/04/2022 by Julian Gallego MD at [facility] Screw Right: Femur [employer] [place]-766055 03/04/2023 212.117 / . / Screw 4.0mm Cancellous Full Thread 50mm - S. - [id number] Implanted:Qty: 1 on 03/04/2022 by Julian Gallego MD at [facility] Screw Right: Femur [employer] [place]-084951 03/04/2023 206.050 / . / Screw 4.0mm Cancellous Full Thread 45mm - S. - [id number] Implanted:Qty: 1 on 03/04/2022 by Julian Gallego MD at [facility] Screw Right: Femur Synthes [facility]-661087 03/04/2023 206.045 / . / Stem Str Fluted 28mm Collar 15mai876ma - [id number] Implanted:Qty: 1 on 01/06/2023 by Reese Galindo MD at [facility] Stem Right: Knee Onkos [employer] Inc-851777 09/30/2023 OF-67610-73I / / [id number] K-Wire Dual Trocar 045 X 152mm - [id number] Implanted:Qty: 2 on 01/06/2022 by Janice Stallworth MD at [facility] Wire [employer]-758890 12/09/2024 1600-645 / / [id number] Vip Vascular Closure Device 6 Fr - [id number] Implanted:Qty: 1 on 01/04/2022 by Paolo Pollack MD at [facility]-810226 10/13/2022 335356 / / [id number] Plug Amplatzer Vasc 5mm - [id number] Implanted:Qty: 1 on 01/04/2022 by Paolo Pollack MD at [facility]-292309 07/13/2026 4-[id number] / / [id number] Cement Palacos - [id number] Implanted:Qty: 1 on 01/04/2022 by Pippa Winslow MD at [facility] Left: Femur Heraeus Inc-166011 07/13/2024 2260961 / / [id number] Screw Schanz 5mm X 200mm - [id number] Implanted:Qty: 8 on 01/04/2022 by Pippa Winslow MD at [facility] Left: Femur Synthes [place]-840582 294.56 / / Christiano Carbon Fbr 11.0mm 350mm - [id number] Implanted:Qty: 1 on 01/04/2022 by Pippa Winslow MD at [facility] Left: Femur [employer]ynthes [place]-796322 394.86 / / Clamp Cmbntn Lg Mri Safe None - [id number] Implanted:Qty: 2 on 01/04/2022 by Pippa Winslow MD at [facility] Left: Femur [employer]s [place]-070644 390.005 / / Clamp Adj Lg Mri Safe None - [id number] Implanted:Qty: 8 on 01/04/2022 by Pippa Winslow MD at [facility] Left: Femur [employer] [place]-649084 390.008 / / Christiano Carbon Fbr 11.0mm 400mm - [id number] Implanted:Qty: 1 on 01/04/2022 by Pippa Winslow MD at [facility] Left: Femur [employer] [place]-865234 394.87 / / Screw Evos 2.4mm Cortex T7 Selftap 38mm - [id number] Implanted:Qty: 1 on 01/07/2022 by Julian Gallego MD at [facility] Right: Femur [employer]hew [employer]za Inc-884065 [id number] / / Screw Evos 2.4mm Cortex T7 Selftap 44mm - [id number] Implanted:Qty: 1 on 01/07/2022 by Julian Gallego MD at [facility] Right: Femur [employer] Inc-700146 [id number] / / Screw Evos 2.4mm Cortex T7 Selftap 46mm - [id number] Implanted:Qty: 1 on 01/07/2022 by Julian Gallego MD at [facility] Right: Femur [employer] Inc-210526 53582356S / / Screw Evos 2.4mm Cortex T7 Selftap 55mm - [id number] Implanted:Qty: 1 on 01/07/2022 by Julian Gallego MD at [facility] Right: Femur [employer] Inc-114737 [id number] / / Screw Evos 2.4mm Cortex T7 Selftap 65mm - [id number] Implanted:Qty: 1 on 01/07/2022 by Julian Gallego MD at [facility] Right: Femur [employer] Inc-088979 [id number] / / Screw Evos 2.7mm Cortex T8 Selftap 75mm - [id number] Implanted:Qty: 1 on 01/07/2022 by Julian Gallego MD at [facility] Right: Femur [employer] Inc-556039 [id number] / / Screw Va Locking John Sterile 5mm 95mm - [id number] Implanted:Qty: 1 on 01/07/2022 by Julian Gallego MD at [facility] Right: Femur Synthes [place]-758315 05/13/2030 42.231.695S / / [id number] Cement Palacos - [id number] Implanted:Qty: 1 on 01/07/2022 by Julian Gallego MD at [facility] Right: Femur Heraeus Inc-004647 12/11/2024 9557058 / / [id number] Screw Evos 2.4mm Cortex T7 Selftap 80mm - [id number] Implanted:Qty: 3 on 01/07/2022 by Julian Gallego MD at [facility] Right: Femur [employer]hew [employer] Inc-092877 [id number] / / Plate 4.5mm Tiva Cond 14hole 301mm R - [id number] Implanted:Qty: 1 on 01/07/2022 by Julian Gallego MD at [facility] Right: Femur [employer] [place]-786724 04.124.414 / / Screw 4.5mm Ti Cortex Selftap 38mm - [id number] Implanted:Qty: 2 on 01/07/2022 by Julian Gallego MD at [facility] Right: Femur [employer] [place]-879314 414.838 / / Screw Va Locking John 5mm 85mm - [id number] Implanted:Qty: 2 on 01/07/2022 by Julian Gallego MD at [facility] Right: Femur [employer] [place]-225147 42.231.685 / / Screw 4.5mm Ti Cortex Selftap 32mm - [id number] Implanted:Qty: 1 on 01/07/2022 by Julian Gallego MD at [facility] Right: Femur [employer] [place]-169483 414.832 / / Screw Va Locking John 5mm 90mm - [id number] Implanted:Qty: 1 on 01/07/2022 by Julian Gallego MD at [facility] Right: Femur [employer] [place]-313905 42.231.690 / / Screw 4.5mm Ti Cortex Selftap 38mm - [id number] Implanted:Qty: 1 on 01/07/2022 by Julian Gallego MD at [facility] Right: Femur [employer] [place]-751734 414.838 / / Washer 2.7mm Screw - [id number] Implanted:Qty: 1 on 01/07/2022 by Julian Gallego MD at [facility] Right: Femur [employer] Inc-435076 [id number] / / Screw 3.5mm Cortex Selftap 30mm - [id number] Implanted:Qty: 1 on 01/08/2022 by Julian Gallego MD at [facility] Left: Leg [employer] [place]-307231 01/08/2023 204.830 / / Screw 3.5mm Cortex Selftap 34mm - [id number] Implanted:Qty: 2 on 01/08/2022 by Julian Gallego MD at [facility] Left: Leg [employer] [place]-987373 01/08/2023 204.834 / / Screw 3.5mm Cortex Selftap 32mm - [id number] Implanted:Qty: 2 on 01/08/2022 by Julian Gallego MD at [facility] Left: Leg [employer] [place]-598241 01/08/2023 204.832 / / Screw 3.5mm Star Lock Selftap 75mm - [id number] Implanted:Qty: 1 on 01/08/2022 by Julian Gallego MD at [facility] Left: Leg S[employer] [place]-111156 01/08/2023 212.127 / / Screw 3.5mm Cortex Selftap 28mm - [id number] Implanted:Qty: 1 on 01/08/2022 by Julian Gallego MD at [facility] Left: Leg [employer]s [place]-178223 01/08/2023 204.828 / / Screw Lock Va Slftp Amina 5mm T25 12mm - [id number] Implanted:Qty: 1 on 01/08/2022 by Julian Gallego MD at [facility] Left: Leg S[employer]s [place]-509932 01/08/2023 42.231.012 / / Screw 4.5mm Ti Cortex Selftap 34mm - [id number] Implanted:Qty: 2 on 01/08/2022 by Julian Gallego MD at [facility] Left: Leg Synthes [facility]-359252 01/08/2023 414.834 / / Chip Bone [facility] - [id number] - [id number] Implanted:Qty: 1 on 01/15/2022 by Julian Gallego MD at [facility]-667504 07/15/2026 PCAN10 / [id number] / [id number] Screw 2.7mm R3con Locking Plate 24mm - [id number] Implanted:Qty: 3 on 01/15/2022 by Julian Gallego MD at [place] [address] Inc-933418 [id number] / / Screw 2.7mm R3con Locking Plate 28mm - [id number] Implanted:Qty: 1 on 01/15/2022 by Julian Gallego MD at [place] [address] Inc-496402 [id number] / / Screw 3.5mm R3con Locking Plate 26mm - [id number] Implanted:Qty: 1 on 01/15/2022 by Julian Gallego MD at [place] [address] Inc-936550 [id number] / / Archplate Medial Clmn Prox 1.5mm R Lg - [id number] Implanted:Qty: 1 on 01/15/2022 by Julian Gallego MD at [place] [address] Inc-251048 [id number] / / Screw 2.7mm R3con Locking Plate 30mm - [id number] Implanted:Qty: 1 on 01/15/2022 by Julian Gallego MD at [facility] [employer] Inc-868682 [id number] / / Screw 2.7mm R3con Locking Plate 26mm - [id number] Implanted:Qty: 1 on 01/15/2022 by Julian Gallego MD at [facility] Right: Foot [employer] Inc-028613 [id number] / / Screw 2.7mm R3con Nonlocking Plate 36mm - [id number] Implanted:Qty: 1 on 01/15/2022 by Julian Gallego MD at [facility] Right: Foot [employer] Inc-967066 [id number] / / Screw 3.5mm R3con Nonlocking Plate 28mm - [id number] Implanted:Qty: 1 on 01/15/2022 by Julian Gallego MD at [facility] Right: Foot [employer] Inc-416179 [id number] / / Screw 3.5mm R3con Locking Plate 24mm - [id number] Implanted:Qty: 1 on 01/15/2022 by Julian Gallego MD at [facility] Right: Foot Lander [employer] Inc-382584 [id number] / / Peoa Wire Threaded 1.6 X 80mm Implanted:Qty: 4 on 01/15/20[facility]-212242 [id number] / / Putty Dbx 10cc - [id number] Implanted:Qty: 1 on 03/04/2022 by Julian Gallego MD at [facility] Right: Femur [employer]-322417 05/23/2023 71575 / / [id number] Chip Bone 40cc - [id number] - [id number] Implanted:Qty: 1 on 03/04/2022 by Julian Gallego MD at [facility] Right: Femur Mindjet [facility]-976101 11/20/2026 PCAN1/2 / [id number] / [id number] Chg Kit Prep Im Enhance Bone Repl - [id number] Implanted:Qty: 1 on 01/06/2023 by Reese Galindo MD at [facility] Right: Knee Hall & Nephew [employer]ouza Inc-058446 872605 / / NOT PROVIDED Tibial Baseplate Size 4 Component - [id number] Implanted:Qty: 1 on 01/06/2023 by Reese Galindo MD at [facility] Right: Knee OnGnodals [employer] Inc-327290 12/31/2029 [id number] / / [id number] Explanted Type Area Pneumatic Tube Fitter Device Identifier Shelf Expiration Date Model / Serial / Lot Screw 3.5mm Cortex Selftap 70mm - S. - [id number] Explanted:Qty: 1 on 03/04/2022 by Julian Gallego MD at [facility] Screw Right: Femur Synthes [facility]-327958 03/04/2023 204.870 / . / Procedures Procedure Name Priority Date/Time Associated Diagnosis Comments MR HEAD WO IV CONTRAST Routine 07/24/2025 5:33 PM EST Mild cognitive impairment HEPATITIS C ANTIBODY - ED W/REFLEX TO HCV QUANT PCR STAT 01/04/2022 9:31 AM EDT from Last 3 Months or Most Recently Relevant to Health Maintenance Results * MR Head wo IV Contrast [...] APRN IMG MRI PROCEDURES Final R esult * [place] Hepatitis C Antibody (01/04/2022 9:31 AM EDT) Hepatitis C Antibody Negative Negative 01/04/2022 10:53 AM EDT [facility] Blood Arterial blood specimen / Unknown Venipuncture / Unknown 01/04/2022 9:31 AM EDT 01/04/2022 9:39 AM EDT Barbara Espinosa MD LAB BLOOD ORDERABLES Final Res [facility] [address] [place] [address] from Last 3 Months or Most Recently Relevant to Health Maintenance [place] [facility] MEDICARE HUMAN CLAIMS [place] [facility] MEDICARE Advance Directives * Full Code (Latest [...] Patient has decision-making capacity? Yes Care Teams Border Measurer Relationship Specialty Start Date End Date Vivek Mederos MD [address] [place] [address] PCP - General 05/15/21 Genevieve Santos PA [address] [place] [address] Physician Facilities Assistant Neurology 05/15/21
--- OUTSIDE RECORDS SUMMARY | 2025-08-15 10:02 | XMS_ITS | Encounter Summary ---
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) to steady your nerves or to get [...] [facility] [address] [place] [address] 09/14/2025 2:30 PM EST Appointment [facility] [address] [place] [address] 10/03/2025 1:00 PM EST Procedure [facility] [address] [place] [id number] Jane Rojas MD [address] [place] [address] documented as of this encounter Visit Diagnoses [...] documented as of this encounter Care Teams Rubber Grinder Relationship Specialty Start Date End Date Vivek Mederos MD [address] [place] [address] PCP - General 05/15/21 Genevieve Santos PA [address] [place] [id number] Physician Pond Sawyer Neurology 05/15/21 documented as of this encounter
--- OUTSIDE RECORDS SUMMARY | 2025-08-15 10:02 | XMS_ITS | Encounter Summary ---
Author Organization [facility] Address [address] [place] [address] Care Team Providers Care Maid Supervisor Name Role Phone Vivek Mederos MD Primary Care Provider [phone] Genevieve Santos Unavailable [phone] Reason for Visit * Reason Onset Date Comments HCN - Patient Message 07/14/2022 Results call back Encounter Details Date Type Department Care Team (Late st Contact Info) Description 07/14/2022 Telephone [place] [facility] [address], [address] [place] [address] Genevieve Santos PA [address] [place] [address] HCN - Patient Message (Results [...] optimal time of day to reach caller: [phone] Note: Please do not reply to this message. Follow-up communication and further actions as a result of this message need to be communicated with the patient directly, if the patient is not active onMyChart. If the patient is active on MyChart, they will receive notification of the communication/outcome via [employer]. * Telephone Encounter - Genevieve Santos PA - 07/20/2022 2:04 PM EST Called again * Telephone Encounter - Hoda Osorio - 07/20/2022 12:16 PM EST Patient Phone Message Reason for Call: Missed a call , please try again Verified number Best contact number and optimal time of day to reach caller: [phone] Note: Please do not reply to this [...] will call her. * Telephone Encounter - Devon Hoda - 07/14/2022 3:23 PM EDT Patient Phone Message Reason for Call: MRI Results Best contact number and optimal time of day to reach caller: [phone] Note: Please do not reply to this message. Follow-up communication and further actions as a result of this message need to be communicated with the patient directly, if the patient is not active onMyChart. If the patient is active on MyChart, they will receive notification of the communication/outcome via MyChart. documented in this encounter Plan of Treatment Upcoming Encounters Date Type Department Care Team (Late st Contact Info) Description 09/14/2025 1:30 PM EST Appointment [facility] [address] [place] [address] 09/14/2025 2:30 PM EST Appointment [facility] [address] [place] [address] 10/03/2025 1:00 PM EST Procedure Visit [facility] [address] [place] [address] Jane Rojas MD [address] [place] [address] documented as of this encounter Visit Diagnoses Not on filedocumented in this encounter Additional Health Concerns Assessment Noted Time A fall risk assessment has been complete d for the patient 06/30/2022 11:00 AM EDT documented as of this encounter Care Teams Maid Supervisor Relationship Specialty Start Date End Date Vivek Mederos MD [address] [place] [address] PCP - General 05/15/21 Genevieve Santos PA [address] [place] [address] Physician [facility] 05/15/21 documented as of this encounter
== END 2025-08-14 23:59 ==
LOC: LAB.DROPOF 08-15 09:55
PROVIDERS: PCP Family Medicine; Visit Provider Nurse Practitioner
DX: R35.0 Frequency of micturition (principal)
CPT/HCPCS: 87086; 87088

== ENCOUNTER 2025-09-04 11:00 | Outpatient (RCR) | payer MEDICARE, MEDICAID, SELFPAY ==
--- NOTE | 2025-08-21 11:27 | HMH.RHREAS ---
Rehab Reassessment Rehab OP Re-assessment Start: 08/15/25 11:07 Freq: Status: Active Protocol: Document 08/21/25 10:49 KIKI (Rec: 08/21/25 11:24 KIKI [id number]) E-signed By Louise Beltre, PT Oswestry Index Section 1 Pain Intensity The pain comes and goes and is very mild Section 2 Personal Care ( change my way of washing or dressing in order to avoid Washing,Dresing) pain Section 3 Lifting lifting heavy weights off the floor, but I can manage light to medium Section 4 Walking I cannot walk more than 1/4 mile without increasing pain Section 5 Sitting I can sit in any chair for as long as I like Section 6 Standing I have some pain on standing, but it does not increase with time Section 7 Sleeping I get pain in bed, but it does not prevent me from sleeping well Section 8 Social Life My social life is normal but increases the degree of pain Section 9 Traveling I get no pain when traveling Section 10 Changing Degreee of My pain is gradually getting worse Pain Score and Risk Level Oswestry Score 15 Oswestry Risk Level Moderate Disability Rehab Re-assessment Subjective Subjective My back has really been bothering me I have a kidney infection again Pt reports she is on antibiotics. Pt reports increase in unilateral/ R LBP since new kidney infection. Pt reports 6/10 current LBP. Pt reports 8/10 LBP over past 48 hours. HEP: Pt reports she has not performed any exercises. Oh no, I have not have time. Objective Objective Notes BLE MMTs: Hip FLEX = -4/5 Hip ABD = -4/5 Hip ADD = -4/5 Knee FLEX = -4/5 Knee EXT = -4/5 Lumbar AROM: FLEX= 100% non-painful EXT= 25%, painful R SB= 100% non-painful L SB= 100% non-painful Assessment Progress Assessment No Progress Assessment Notes This is a reassessment for Stephani Aldana who presents to PT for c/o recurrent LBP. Since IE on June 18, 2025, pt has been treated for 3 sessions. Pt with fair attendance to scheduled PT visits and reports no adherence to HEP. Pt still presents with impairments noted at initial evaluation. 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 Pt has received education on importance of regular PT attendance and arriving on time. Plan to continue skilled physical therapy for 3-4 more weeks to address deficits and improve QOL. PT Patient Goals PT Short Term In 4 weeks, pt will: Patient Goals 1) Verbalize compliance with home exercise program to improve self-maintenance of symptoms. not met 2) Verbalize 48-hour pain average (worst/best/current) of 3/10: not met 3) Improve BLE strength by 1/5 MMT grade to improve daily functioning. not met 4) Tolerate one 10 min moderate intensity endurance task (ex: bike): met 5) Improve SAM to at most 8 points to decrease disability from LBP and improve QOL. not met 6) Verbalize feeling at least 45% improved in symptoms since initial PT evaluation. not met PT Long-Term Patient In 8 weeks, pt will: not met Goals 1) Verbalize adherence with home exercise program to maximize self-maintenance of symptoms upon d/c from PT POC. 2) Verbalize 48-hour pain average (worst/best/current) of 1-2/10 3) Improve BLE strength to 5/5 MMT grade to improve daily functioning. 4) Improve SAM to at most 6 points to decrease disability from LBP and improve QOL. 5) Verbalize feeling at least 90% improved in symptoms since initial PT evaluation. Plan Plan Continue POC Frequency of Therapy 2x weekly Duration of Therapy 3-4 weeks Time and Billing Re-Eval Time 10 PHYSICIAN CERTIFICATION: I certify the specified therapy services for Stephani Aldana are required, authorized, and reviewed every 30 days.
== END 2025-09-04 23:59 | disposition home or self-care (01) ==
LOC: PT 11:00
PROVIDERS: PCP Family Medicine; Visit Provider Family Medicine
DX: M54.50 Low back pain, unspecified (principal)
CPT/HCPCS: 97110; 97530